=== PATIENT | female | born 1950 | race Caucasian/White ===

== ENCOUNTER 2019-02-26 05:17 | Emergency (ER) | payer OTHER, MEDICARE, SELFPAY ==
[2019-02-26] VITALS (7 sets, daily range): BP systolic 124–163; BP diastolic 56–79; PULSE 78–114; RESP 12–20; TEMP 36.9; O2SAT 93–97
--- NOTE | 2019-02-26 05:27 | DI.RAD.S_ITS ---
PROCEDURE: XR CHEST 1V INDICATIONS: chills, sweats, cough, productive. TECHNIQUE: One view of the chest was acquired. COMPARISON: None. FINDINGS: Surgical changes and devices: None. Lungs and pleura: Atelectasis or parenchymal scarring noted in the right midlung. No pleural effusions or pneumothorax. Mediastinum: Mediastinal contours appear normal. Heart size is normal. Bones and chest wall: No suspicious bony lesions. Overlying soft tissues appear unremarkable. IMPRESSION: No acute cardiopulmonary disease process. Dictated by: Larisa Chawla MD, PhD on 02/26/2019 at 7:43 Approved by: Larisa Chawla MD, PhD on 02/26/2019 at 7:43
--- NOTE | 2019-02-26 05:28 | DI.CT.S_ITS ---
PROCEDURE: CT HEAD/BRAIN WO CON INDICATIONS: chills, productive cough, headache TECHNIQUE: Noncontrast 4.5 mm thick angled axial sections acquired from the foramen magnum to the vertex, with coronal and sagittal reformats. For radiation dose reduction, the following was used: automated exposure control, adjustment of mA and/or kV according to patient size. COMPARISON: None. FINDINGS: Image quality: Excellent. CSF spaces: Basal cisterns are patent. No extra-axial fluid collections. Ventricles are normal in size and shape. Brain: No midline shift. No intracranial masses or hemorrhage. Knapp-white matter interface is normal. Skull and face: Calvarium and visualized facial bones are intact, without suspicious lesions. Sinuses: Visualized sinuses and mastoids are abnormal with small fluid levels in the posterior sphenoid sinus. Right nasal airway stenosis due to mucosal thickening along the nasal turbinates.. IMPRESSION: Mild sinusitis, normal brain. Dictated by: Santana Mccartney M.D. on 02/26/2019 at 7:14 Approved by: Santana Mccartney M.D. on 02/26/2019 at 7:16
--- NOTE | 2019-02-26 05:29 | ED.HA ---
HPI - Headache General Chief Complaint: Headache Stated Complaint: sick x5 days Time Seen by Provider: 02/26/19 05:20 Source: patient and family () Mode of arrival: ambulatory Limitations: no limitations History of Present Illness HPI Narrative: This is a 68-year-old female comes the emergency department with complaint of chills and subjective fevers for 5 days. Patient states she hurts all over from her head to her toes. She states her skin hurts. She states she has headache, she states that the light bothers her, she states she has a sore throat, she states she has chest pain and shortness of breath. She states she has had a cough with productive greenish yellow sputum. She states she has been nauseated but not actively vomiting. She states she has not been having many bowel movements but has been passing gas. She states that she has not had any black or bloody stools. No swelling in her extremities. She has been having symptoms over the last several days but her headache which has been present for several days has increased tonight. She took Tylenol at 4:30 a.m. without improvement. She denies vision changes, difficulty with movement, numbness or weakness. Patient has a history of hypertension, she states pre-diabetes. States that she has had a hysterectomy. Denies tobacco, occasional alcohol, no illicit. She is accompanied by her . Kathrine Sotelo is her PCP. Related Data Home Medications Medication Instructions Recorded Confirmed PHENAZOPYRIDINE HYDROCHLORIDE 200 mg PO #0 01/01/10 (Pyridium) SULFAMETHOX/TRIMETH 1 tab PO #0 01/01/10 (SULFAMETHOX/TRIMETH SS) [UNKNOWN BP MED] #0 05/20/16 aspirin 81 mg PO QDAY #0 05/20/16 metoprolol tartrate 25 mg PO BID #0 05/20/16 Previous Rx's Medication Instructions Recorded oxycodone-acetaminophen [Percocet] 1 tab PO Q4HP PRN #15 tab 05/20/16 Allergies Allergy/AdvReac Type Severity Reaction Status Date / Time No Known Drug Allergies Allergy Verified 02/26/19 06:02 Review of Systems Review of Systems ROS Unobtainable: All systems reviewed & are unremarkable except as noted in HPI and below Constitutional Reports chills, Reports excessive sweating, Reports fever(s), Reports headache(s), Denies lethargy and Denies weakness Eyes Denies change in vision ENT Ears, Nose, Mouth, and Throat: Reports headache(s), Reports nasal discharge and Reports sore throat Cardiovascular Reports chest pain, Reports diaphoresis, Denies syncope, Denies edema, Denies leg edema, Denies lightheadedness, Denies radiating jaw, neck or arm pain and Reports dyspnea Respiratory Reports change in phlegm color (green/yellow), Reports chest congestion, Reports cough, Reports excessive phlegm production, Reports dyspnea and Denies wheezing Gastrointestinal Gastrointestinal: Denies abdominal pain, Denies melena, Denies hematochezia, Denies change in bowel habits, Denies diarrhea, Reports nausea and Denies vomiting Genitourinary Denies hematuria, Denies urinary frequency, Denies dysuria, Denies flank pain, Denies urinary incontinence and Denies urinary urgency Musculoskeletal Denies back pain, Reports arthralgias, Denies numbness, Denies tingling and Reports other (hurts all over.) Integumentary/Breasts Denies non-healing lesions, Denies rash and Denies unusual bruising Neurologic Denies confusion, Denies syncope, Reports headache(s), Denies focal weakness, Denies numbness, Denies tingling and Denies weakness Psychiatric Denies confusion Endocrine Reports excessive sweating Allergic/Immunologic Denies wheezing PFSH Medical History Hypertension (Chronic) Pre-diabetes (Chronic) Social History (Updated 02/26/19 @ 05:33 by Merary Hodge DO) marital status: Smoking Status: Never smoker alcohol intake: current substance use type: does not use Social History (Updated 02/26/19 @ 05:33 by Merary Hodge DO) marital status: Smoking Status: Never smoker alcohol intake: current substance use type: does not use Exam Narrative Exam Narrative: GEN: well nourished, female, alert and oriented x 3, patient appears to be in moderate distress. Patient is diaphoretic. HEENT: Atraumatic, pupils are equal round reactive to light, extraocular movements are intact, no nystagmus, nares are clear, TMs are clear with no fluid, there is no conjunctival pallor. Throat is erythematous without any exudates, erythema, tonsillar enlargement or uvular deviation, no cervical lymphadenopathy. Negative Kernig's and Brudzinski. Able to flex/extend and rotate without issue. HEART: Regular rate and rhythm without murmur, clicks, rubs. Pulses are equal in upper and lower extremities LUNGS:Lungs clear to auscultation, no wheezes, rales, crackles, chest moves symmetrically, No tachypnea, no accessory muscle use. ABD:bowel sounds normal, soft, non-tender, , non-distended, no guarding, rebound, rigidity, no masses noted, no hepatosplenomegaly :No CVA tenderness MSCL: Non-tender, no muscle atrophy, muscles strength 5/5 upper and lower extremities, full range of motion NEURO:CN 2-12 intact, sensation normal, reflexes 2/4 upper and lower extremities. SKIN: no rash, no petechia, no lesions or erythema noted. Initial Vital Signs Initial Vital Signs: Vital Signs Temperature 98.4 F 02/26/19 05:25 Pulse Rate 114 H 02/26/19 05:25 Respiratory Rate 20 02/26/19 05:25 Blood Pressure 163/79 H 02/26/19 05:25 Pulse Oximetry 97 02/26/19 05:25 Course Orders Ordered: ED Orders 02/26/19 05:25 Complete Blood Count AUTO DIFF Stat Comprehensive Metabolic Panel Stat Lactate (Lactic Acid) Urgent Partial Thromboplastin Time Stat Procalcitonin Stat Prothrombin Time INR Stat Troponin & CK Cardiac Panel Stat 02/26/19 05:27 XR chest 1V Stat 02/26/19 05:28 CT head/brain wo con Stat 02/26/19 05:30 Influenza A and B by PCR Rapid Stat 02/26/19 05:34 EKG-12 Lead Stat 02/26/19 06:00 Urinalysis and Microscopic Stat 02/26/19 06:17 Blood Culture Stat 02/26/19 08:10 Cell Count w Diff CSF Stat Glucose CSF Stat HOLD TUBE CSF Stat Meningitis Panel (Film Array) Stat Total Protein CSF Stat 02/26/19 08:20 CSF culture Stat Discontinued Medications Sodium Chloride (Normal Saline 0.9%) 1,000 mls @ 1,000 mls/hr IV BOLUS ONE Stop: 02/26/19 06:26 Last Admin: 02/26/19 05:57 Dose: Not Given Sodium Chloride (Normal Saline 0.9%) 2,313.33 mls @ 771.11 mls/hr 30 ml/kg infuse over 3 hr (2313.33 ml) IV NOW ONE Stop: 02/26/19 08:33 Last Infusion: 02/26/19 07:34 Dose: 0 mls/hr Admin: 02/26/19 05:54 Dose: 771.11 mls/hr Morphine Sulfate (Morphine) 4 mg IV NOW ONE Stop: 02/26/19 05:28 Last Admin: 02/26/19 05:42 Dose: 4 mg Morphine Sulfate (Morphine) 4 mg IV NOW ONE Stop: 02/26/19 07:19 Last Admin: 02/26/19 07:30 Dose: 4 mg Ondansetron HCl (Zofran) 4 mg IV NOW ONE Stop: 02/26/19 05:29 Last Admin: 02/26/19 05:43 Dose: 4 mg Ondansetron HCl (Zofran) 4 mg IV NOW ONE Stop: 02/26/19 07:29 Last Admin: 02/26/19 07:30 Dose: 4 mg Vital Signs - 8 hr 02/26/19 05:25 02/26/19 06:09 02/26/19 06:31 Temperature 98.4 F Pulse Rate 114 H 81 78 Respiratory Rate 20 14 14 Blood Pressure 163/79 H Blood Pressure [Left Arm] 139/67 127/56 L Pulse Oximetry 97 93 94 02/26/19 07:01 02/26/19 08:33 Temperature Pulse Rate 94 H 81 Respiratory Rate 18 12 Blood Pressure Blood Pressure [Left Arm] 137/67 135/63 Pulse Oximetry 94 93 MDM - Headache Lab Data Attestation: I reviewed the patient's lab results. Result diagrams: 02/26/19 05:25 02/26/19 05:25 Lab Results 02/26/19 02/26/19 02/26/19 Range/Units 05:25 05:25 05:25 WBC 7.2 (4.5-11.0) X10^3/uL RBC 4.48 (4.0-5.2) X10^6/uL Hgb 14.4 (12.0-16.0) g/dL Hct 41.8 (36-46) % MCV 93.2 (80-100) fL MCH 32.0 (26-34) PG MCHC 34.4 (30-36) % RDW 13.7 (11.6-14.8) % Plt Count 199 (150-400) X10^3/uL Neut % (Auto) 73.3 (50-75) % Lymph % (Auto) 15.3 L (25-40) % Garden % (Auto) 10.8 (3-14) % Eos % (Auto) 0.3 L (2-4) % Baso % (Auto) 0.3 (0-2) % Neut # (Auto) 5300 (1578-7507) /uL Lymph # (Auto) 1100 (0534-7312) /uL Garden # (Auto) 800 (0-900) /uL Eos # (Auto) 0 (0-450) /uL Baso # (Auto) 0 (0-100) /uL PT 12.8 H (10.1-12.7) SECONDS INR 1.1 (0.9-1.3) APTT 35 (26.4-36.2) SECONDS Sodium (137-145) mmol/L Potassium (3.4-5.1) mmol/L Chloride (98-107) mmol/L Carbon Dioxide (22-32) mmol/L BUN (7-17) mg/dL Creatinine (0.52-1.04) mg/dL Estimated GFR (>60) mL/min BUN/Creatinine Ratio (6-22) Glucose (80-110) mg/dL Lactate (0.7-2.1) mmol/L Calcium (8.4-10.2) mg/dL Total Bilirubin (0.2-1.3) mg/dL AST (14-36) IU/L ALT (9-52) IU/L Alkaline Phosphatase (38-126) U/L Total Creatine Kinase (30-135) U/L CK-MB (CK-2) CK-MB (CK-2) Rel Index Troponin I (0.01-0.034) ng/mL Total Protein (6.3-8.2) g/dL Albumin (3.5-5.0) g/dL Globulin (1.7-4.1) g/dL Albumin/Globulin Ratio (1.0-2.8) Procalcitonin 0.09 (<0.5) ng/mL Influenza A & B (PCR) (Negative) 06/27/19 06/27/19 06/27/19 Range/Units 05:25 05:25 05:25 WBC (4.5-11.0) X10^3/uL RBC (4.0-5.2) X10^6/uL Hgb (12.0-16.0) g/dL Hct (36-46) % MCV (80-100) fL MCH (26-34) PG MCHC (30-36) % RDW (11.6-14.8) % Plt Count (150-400) X10^3/uL Neut % (Auto) (50-75) % Lymph % (Auto) (25-40) % Garden % (Auto) (3-14) % Eos % (Auto) (2-4) % Baso % (Auto) (0-2) % Neut # (Auto) (8403-4236) /uL Lymph # (Auto) (3444-1884) /uL Garden # (Auto) (0-900) /uL Eos # (Auto) (0-450) /uL Baso # (Auto) (0-100) /uL PT (10.1-12.7) SECONDS INR (0.9-1.3) APTT (26.4-36.2) SECONDS Sodium 136 L (137-145) mmol/L Potassium 3.8 (3.4-5.1) mmol/L Chloride 98 (98-107) mmol/L Carbon Dioxide 23 (22-32) mmol/L BUN 11 (7-17) mg/dL Creatinine 0.60 (0.52-1.04) mg/dL Estimated GFR > 60.0 (>60) mL/min BUN/Creatinine Ratio 18.3 (6-22) Glucose 143 H (80-110) mg/dL Lactate 2.0 (0.7-2.1) mmol/L Calcium 9.6 (8.4-10.2) mg/dL Total Bilirubin 0.5 (0.2-1.3) mg/dL AST 23 (14-36) IU/L ALT 44 (9-52) IU/L Alkaline Phosphatase 122 (38-126) U/L Total Creatine Kinase 37 (30-135) U/L CK-MB (CK-2) TNP CK-MB (CK-2) Rel Index TNP Troponin I < 0.012 (0.01-0.034) ng/mL Total Protein 7.2 (6.3-8.2) g/dL Albumin 4.3 (3.5-5.0) g/dL Globulin 2.9 (1.7-4.1) g/dL Albumin/Globulin Ratio 1.5 (1.0-2.8) Procalcitonin (<0.5) ng/mL Influenza A & B (PCR) (Negative) 02/26/19 Range/Units 05:30 WBC (4.5-11.0) X10^3/uL RBC (4.0-5.2) X10^6/uL Hgb (12.0-16.0) g/dL Hct (36-46) % MCV (80-100) fL MCH (26-34) PG MCHC (30-36) % RDW (11.6-14.8) % Plt Count (150-400) X10^3/uL Neut % (Auto) (50-75) % Lymph % (Auto) (25-40) % Garden % (Auto) (3-14) % Eos % (Auto) (2-4) % Baso % (Auto) (0-2) % Neut # (Auto) (7656-1520) /uL Lymph # (Auto) (3703-0587) /uL Garden # (Auto) (0-900) /uL Eos # (Auto) (0-450) /uL Baso # (Auto) (0-100) /uL PT (10.1-12.7) SECONDS INR (0.9-1.3) APTT (26.4-36.2) SECONDS Sodium (137-145) mmol/L Potassium (3.4-5.1) mmol/L Chloride (98-107) mmol/L Carbon Dioxide (22-32) mmol/L BUN (7-17) mg/dL Creatinine (0.52-1.04) mg/dL Estimated GFR (>60) mL/min BUN/Creatinine Ratio (6-22) Glucose (80-110) mg/dL Lactate (0.7-2.1) mmol/L Calcium (8.4-10.2) mg/dL Total Bilirubin (0.2-1.3) mg/dL AST (14-36) IU/L ALT (9-52) IU/L Alkaline Phosphatase (38-126) U/L Total Creatine Kinase (30-135) U/L CK-MB (CK-2) CK-MB (CK-2) Rel Index Troponin I (0.01-0.034) ng/mL Total Protein (6.3-8.2) g/dL Albumin (3.5-5.0) g/dL Globulin (1.7-4.1) g/dL Albumin/Globulin Ratio (1.0-2.8) Procalcitonin (<0.5) ng/mL Influenza A & B (PCR) Negative (Negative) Imaging Data CT scan - head: Radiologist's impression: Generalized involutional changes and chronic mics grow vascular changes noted. No acute intracranial abnormality. Possible sinusitis. No mass, mass effect, hemorrhage or evidence of major vessel infarct is identified. Posterior fossa contents are unremarkable. Atherosclerotic calcification of also base of brain noted. Normal mobility of skull base or calvarium detected. Orbital soft tissues are unremarkable. Fluid is present within the right maxillary and sphenoid sinuses mastoid air cells are clear. Chest x-ray: Radiologist's impression: [place] [address] XRay Report Signed Patient: Gwen Vasques [facility]#: [id number] : 3Acct:[id number] Age/Sex: 68 / FDate of Service: 02/26/19 Loc: ED Accession Number: [id number] Procedure: XR chest 1V Ordering Provider: Merary Hodge D.O. PROCEDURE: XR CHEST 1V INDICATIONS: chills, sweats, cough, productive. TECHNIQUE: One view of the chest was acquired. COMPARISON: None. FINDINGS: Surgical changes and devices: None. Lungs and pleura: Atelectasis or parenchymal scarring noted in the right midlung. No pleural effusions or pneumothorax. Mediastinum: Mediastinal contours appear normal. Heart size is normal. Bones and chest wall: No suspicious bony lesions. Overlying soft tissues appear unremarkable. IMPRESSION: No acute cardiopulmonary disease process. Dictated by: Larisa Chawla MD, PhD on 02/26/2019 at 7:43 Approved by: Larisa Chawla MD, PhD on 02/26/2019 at 7:43 ECG Data Attestation: I personally reviewed and interpreted this ECG as follows: Prior ECG tracings: not available for review Interpretation: Sinus rhythm with a rate 88 NC 153 QRS of 94 and QTC of 328. Nonspecific abnormalities, no ST elevation or depression. No prior's available. MDM Narrative Medical decision making narrative: Patient comes in with hypertension, tachycardia diaphoretic complaining of a headache that has worsened over the past 5 days. She also complains of hurting all over and everywhere I asked she states is painful. Patient and her state that he was sick with similar symptoms although he did not feel quite as bad or have a headache severe. Patient is more comfortable after medication. She defers any additional medication. Discussed lab work, procalcitonin, UA and flu swab were still pending. Patient and I discussed she has had a history of migraines although she states this is worse. She states that this was a slow onset that worsened today. Discussed with patient if procalcitonin is positive she definitely needs a lumbar puncture, if negative we will discuss but may still be appropriate. Patient head CT does not show acute findings or sign of bleed. Chest x-ray shows a little bit of streaky fluid but no clear pneumonia. All lab work is normal except for UA which has not been provided by the patient and they influenza and procalcitonin which are negative. Discussed with patient suspect viral meningitis vs. SAH although history makes this less likely. Patient consents to LP. Successful and sent to lab. Patient signed out to Dr. Olivares for final dispostion. Discharge Plan Departure Clinical Impression: Headache Prescriptions: No Action PHENAZOPYRIDINE HYDROCHLORIDE (Pyridium) 200 mg PO Qty: 0 RF: 0 SULFAMETHOX/TRIMETH (SULFAMETHOX/TRIMETH SS) 1 tab PO Qty: 0 RF: 0 aspirin 81 MG tablet,delayed release (DR/EC) 81 mg PO QDAY Qty: 0 RF: 0 metoprolol tartrate 25 MG tablet 25 mg PO BID Qty: 0 RF: 0 [UNKNOWN BP MED] Qty: 0 RF: 0 oxycodone-acetaminophen [Percocet] 5 MG/325 MG tablet 1 tab PO Q4HP PRNQty: 15 RF: 0
--- NOTE | 2019-02-26 05:34 | ED_ITS ---
HPI - Headache General Chief Complaint: Headache Stated Complaint: sick x5 days Time Seen by Provider: 02/26/19 05:20 Source: patient and family () Mode of arrival: ambulatory Limitations: no limitations History of Present Illness HPI Narrative: This is a 68-year-old female comes the emergency department with complaint of chills and subjective fevers for 5 days. Patient states she hurts all over from her head to her toes. She states her skin hurts. She states she has headache, she states that the light bothers her, she states she has a sore throat, she states she has chest pain and shortness of breath. She states she has had a cough with productive greenish yellow sputum. She states she has been nauseated but not actively vomiting. She states she has not been having many bowel movements but has been passing gas. She states that she has not had any black or bloody stools. No swelling in her extremities. She has been having symptoms over the last several days but her headache which has been present for several days has increased tonight. She took Tylenol at 4:30 a.m. without improvement. She denies vision changes, difficulty with movement, numbness or weakness. Patient has a history of hypertension, she states pre-diabetes. States that she has had a hysterectomy. Denies tobacco, occasional alcohol, no illicit. She is accompanied by her . Kathrine Sotelo is her PCP. Related Data Home Medications Medication Instructions Recorded Confirmed PHENAZOPYRIDINE HYDROCHLORIDE 200 mg PO #0 01/01/10 (Pyridium) SULFAMETHOX/TRIMETH 1 tab PO #0 01/01/10 (SULFAMETHOX/TRIMETH SS) [UNKNOWN BP MED] #0 05/20/16 aspirin 81 mg PO QDAY #0 05/20/16 metoprolol tartrate 25 mg PO BID #0 05/20/16 Previous Rx's Medication Instructions Recorded oxycodone-acetaminophen [Percocet] 1 tab PO Q4HP PRN #15 tab 05/20/16 Allergies Allergy/AdvReac Type Severity Reaction Status Date / Time No Known Drug Allergies Allergy Verified 02/26/19 06:02 Review of Systems Review of Systems ROS Unobtainable: All systems reviewed & are unremarkable except as noted in HPI and below Constitutional Reports chills, Reports excessive sweating, Reports fever(s), Reports headache(s), Denies lethargy and Denies weakness Eyes Denies change in vision ENT Ears, Nose, Mouth, and Throat: Reports headache(s), Reports nasal discharge and Reports sore throat Cardiovascular Reports chest pain, Reports diaphoresis, Denies syncope, Denies edema, Denies leg edema, Denies lightheadedness, Denies radiating jaw, neck or arm pain and R eports dyspnea Respiratory Reports change in phlegm color (green/yellow), Reports chest congestion, Reports cough, Reports excessive phlegm production, Reports dyspnea and Denies wheezing Gastrointestinal Gastrointestinal: Denies abdominal pain, Denies melena, Denies hematochezia, Denies change in bowel habits, Denies diarrhea, Reports nausea and Denies vomiting Genitourinary Denies hematuria, Denies urinary frequency, Denies dysuria, Denies flank pain, Denies urinary incontinence and Denies urinary urgency Musculoskeletal Denies back pain, Reports arthralgias, Denies numbness, Denies tingling and Reports other (hurts all over.) Integumentary/Breasts Denies non-healing lesions, Denies rash and Denies unusual bruising Neurologic Denies confusion, Denies syncope, Reports headache(s), Denies focal weakness, Denies numbness, Denies tingling and Denies weakness Psychiatric Denies confusion Endocrine Reports excessive sweating Allergic/Immunologic Denies wheezing PFSH Medical History Hypertension (Chronic) Pre-diabetes (Chronic) Social History (Updated 02/26/19 @ 05:33 by Merary Hodge DO) marital status: Smoking Status: Never smoker alcohol intake: current substance use type: does not use Social History (Updated 02/26/19 @ 05:33 by Merary Hodge DO) marital status: Smoking Status: Never smoker alcohol intake: current substance use type: does not use Exam Narrative Exam Narrative: GEN: well nourished, female, alert and oriented x 3, patient appears to be in moderate distress. Patient is diaphoretic. HEENT: Atraumatic, pupils are equal round reactive to light, extraocular movements are intact, no nystagmus, nares are clear, TMs are clear with no fluid, there is no conjunctival pallor. Throat is erythematous without any exudates, erythema, tonsillar enlargement or uvular deviation, no cervical lymphadenopathy. Negative Kernig's and Brudzinski. Able to flex/extend and rotate without issue. HEART: Regular rate and rhythm without murmur, clicks, rubs. Pulses are equal in upper and lower extremities LUNGS:Lungs clear to auscultation, no wheezes, rales, crackles, chest moves symmetrically, No tachypnea, no accessory muscle use. ABD:bowel sounds normal, soft, non-tender, , non-distended, no guarding, rebound, rigidity, no masses noted, no hepatosplenomegaly :No CVA tenderness MSCL: Non-tender, no muscle atrophy, muscles strength 5/5 upper and lower extremities, full range of motion NEURO:CN 2-12 intact, sensation normal, reflexes 2/4 upper and lower extremities. SKIN: no rash, no petechia, no lesions or erythema noted. Initial Vital Signs Initial Vital Signs: Vital Signs Temperature 98.4 F 02/26/19 05:25 Pulse Rate 114 H 02/26/19 05:25 Respiratory Rate 20 02/26/19 05:25 Blood Pressure 163/79 H 02/26/19 05:25 Pulse Oximetry 97 02/26/19 05:25 Course Orders Ordered: ED Orders 02/26/19 05:25 Complete Blood Count AUTO DIFF Stat Comprehensive Metabolic Panel Stat Lactate (Lactic Acid) Urgent Partial Thromboplastin Time Stat Procalcitonin Stat Prothrombin Time INR Stat Troponin & CK Cardiac Panel Stat 02/26/19 05:27 XR chest 1V Stat 02/26/19 05:28 CT head/brain wo con Stat 02/26/19 05:30 Influenza A and B by PCR Rapid Stat 02/26/19 05:34 EKG-12 Lead Stat 02/26/19 06:00 Urinalysis and Microscopic Stat 02/26/19 06:17 Blood Culture Stat 02/26/19 08:10 Cell Count w Diff CSF Stat Glucose CSF Stat HOLD TUBE CSF Stat Meningitis Panel (Film Array) Stat Total Protein CSF Stat 02/26/19 08:20 CSF culture Stat Discontinued Medications Sodium Chloride (Normal Saline 0.9%) 1,000 mls @ 1,000 mls/hr IV BOLUS ONE Stop: 02/26/19 06:26 Last Admin: 02/26/19 05:57 Dose: Not Given Sodium Chloride (Normal Saline 0.9%) 2,313.33 mls @ 771.11 mls/hr 30 ml/kg infuse over 3 hr (2313.33 ml) IV NOW ONE Stop: 02/26/19 08:33 Last Infusion: 02/26/19 07:34 Dose: 0 mls/hr Admin: 02/26/19 05:54 Dose: 771.11 mls/hr Morphine Sulfate (Morphine) 4 mg IV NOW ONE Stop: 02/26/19 05:28 Last Admin: 02/26/19 05:42 Dose: 4 mg Morphine Sulfate (Morphine) 4 mg IV NOW ONE Stop: 02/26/19 07:19 Last Admin: 02/26/19 07:30 Dose: 4 mg Ondansetron HCl (Zofran) 4 mg IV NOW ONE Stop: 02/26/19 05:29 Last Admin: 02/26/19 05:43 Dose: 4 mg Ondansetron HCl (Zofran) 4 mg IV NOW ONE Stop: 02/26/19 07:29 Last Admin: 02/26/19 07:30 Dose: 4 mg Vital Signs - 8 hr 02/26/19 05:25 02/26/19 06:09 02/26/19 06:31 Temperature 98.4 F Pulse Rate 114 H 81 78 Respiratory Rate 20 14 14 Blood Pressure 163/79 H Blood Pressure [Left Arm] 139/67 127/56 L Pulse Oximetry 97 93 94 02/26/19 07:01 02/26/19 08:33 Temperature Pulse Rate 94 H 81 Respiratory Rate 18 12 Blood Pressure Blood Pressure [Left Arm] 137/67 135/63 Pulse Oximetry 94 93 MDM - Headache Lab Data Attestation: I reviewed the patient's lab results. Result diagrams: 02/26/19 05:25 02/26/19 05:25 Lab Results 02/26/19 02/26/19 02/26/19 Range/Units 05:25 05:25 05:25 WBC 7.2 (4.5-11.0) X10^3/uL RBC 4.48 (4.0-5.2) X10^6/uL Hgb 14.4 (12.0-16.0) g/dL Hct 41.8 (36-46) % MCV 93.2 (80-100) fL MCH 32.0 (26-34) PG MCHC 34.4 (30-36) % RDW 13.7 (11.6-14.8) % Plt Count 199 (150-400) X10^3/uL Neut % (Auto) 73.3 (50-75) % Lymph % (Auto) 15.3 L (25-40) % [place] % (Auto) 10.8 (3-14) % Eos % (Auto) 0.3 L (2-4) % Baso % (Auto) 0.3 (0-2) % Neut # (Auto) 5300 (4069-5029) /uL Lymph # (Auto) 1100 (6587-8094) /uL [place] # (Auto) 800 (0-900) /uL Eos # (Auto) 0 (0-450) /uL Baso # (Auto) 0 (0-100) /uL PT 12.8 H (10.1-12.7) SECONDS INR 1.1 (0.9-1.3) APTT 35 (26.4-36.2) SECONDS Sodium (137-145) mmol/L Potassium (3.4-5.1) mmol/L Chloride (98-107) mmol/L Carbon Dioxide (22-32) mmol/L BUN (7-17) mg/dL Creatinine (0.52-1.04) mg/dL Estimated GFR (>60) mL/min BUN/Creatinine Ratio (6-22) Glucose (80-110) mg/dL Lactate (0.7-2.1) mmol/L Calcium (8.4-10.2) mg/dL Total Bilirubin (0.2-1.3) mg/dL AST (14-36) IU/L ALT (9-52) IU/L Alkaline Phosphatase (38-126) U/L Total Creatine Kinase (30-135) U/L CK-MB (CK-2) CK-MB (CK-2) Rel Index Troponin I (0.01-0.034) ng/mL Total Protein (6.3-8.2) g/dL Albumin (3.5-5.0) g/dL Globulin (1.7-4.1) g/dL Albumin/Globulin Ratio (1.0-2.8) Procalcitonin 0.09 (<0.5) ng/mL Influenza A & B (PCR) (Negative) 02/26/19 02/26/19 02/26/19 Range/Units 05:25 05:25 05:25 WBC (4.5-11.0) X10^3/uL RBC (4.0-5.2) X10^6/uL Hgb (12.0-16.0) g/dL Hct (36-46) % MCV (80-100) fL MCH (26-34) PG MCHC (30-36) % RDW (11.6-14.8) % Plt Count (150-400) X10^3/uL Neut % (Auto) (50-75) % Lymph % (Auto) (25-40) % [place] % (Auto) (3-14) % Eos % (Auto) (2-4) % Baso % (Auto) (0-2) % Neut # (Auto) (1037-0664) /uL Lymph # (Auto) (7336-5791) /uL [place] # (Auto) (0-900) /uL Eos # (Auto) (0-450) /uL Baso # (Auto) (0-100) /uL PT (10.1-12.7) SECONDS INR (0.9-1.3) APTT (26.4-36.2) SECONDS Sodium 136 L (137-145) mmol/L Potassium 3.8 (3.4-5.1) mmol/L Chloride 98 (98-107) mmol/L Carbon Dioxide 23 (22-32) mmol/L BUN 11 (7-17) mg/dL Creatinine 0.60 (0.52-1.04) mg/dL Estimated GFR > 60.0 (>60) mL/min BUN/Creatinine Ratio 18.3 (6-22) Glucose 143 H (80-110) mg/dL Lactate 2.0 (0.7-2.1) mmol/L Calcium 9.6 (8.4-10.2) mg/dL Total Bilirubin 0.5 (0.2-1.3) mg/dL AST 23 (14-36) IU/L ALT 44 (9-52) IU/L Alkaline Phosphatase 122 (38-126) U/L Total Creatine Kinase 37 (30-135) U/L CK-MB (CK-2) TNP CK-MB (CK-2) Rel Index TNP Troponin I < 0.012 (0.01-0.034) ng/mL Total Protein 7.2 (6.3-8.2) g/dL Albumin 4.3 (3.5-5.0) g/dL Globulin 2.9 (1.7-4.1) g/dL Albumin/Globulin Ratio 1.5 (1.0-2.8) Procalcitonin (<0.5) ng/mL Influenza A & B (PCR) (Negative) 02/26/19 Range/Units 05:30 WBC (4.5-11.0) X10^3/uL RBC (4.0-5.2) X10^6/uL Hgb (12.0-16.0) g/dL Hct (36-46) % MCV (80-100) fL MCH (26-34) PG MCHC (30-36) % RDW (11.6-14.8) % Plt Count (150-400) X10^3/uL Neut % (Auto) (50-75) % Lymph % (Auto) (25-40) % [place] % (Auto) (3-14) % Eos % (Auto) (2-4) % Baso % (Auto) (0-2) % Neut # (Auto) (6158-1215) /uL Lymph # (Auto) (7888-4774) /uL [place] # (Auto) (0-900) /uL Eos # (Auto) (0-450) /uL Baso # (Auto) (0-100) /uL PT (10.1-12.7) SECONDS INR (0.9-1.3) APTT (26.4-36.2) SECONDS Sodium (137-145) mmol/L Potassium (3.4-5.1) mmol/L Chloride (98-107) mmol/L Carbon Dioxide (22-32) mmol/L BUN (7-17) mg/dL Creatinine (0.52-1.04) mg/dL Estimated GFR (>60) mL/min BUN/Creatinine Ratio (6-22) Glucose (80-110) mg/dL Lactate (0.7-2.1) mmol/L Calcium (8.4-10.2) mg/dL Total Bilirubin (0.2-1.3) mg/dL AST (14-36) IU/L ALT (9-52) IU/L Alkaline Phosphatase (38-126) U/L Total Creatine Kinase (30-135) U/L CK-MB (CK-2) CK-MB (CK-2) Rel Index Troponin I (0.01-0.034) ng/mL Total Protein (6.3-8.2) g/dL Albumin (3.5-5.0) g/dL Globulin (1.7-4.1) g/dL Albumin/Globulin Ratio (1.0-2.8) Procalcitonin (<0.5) ng/mL Influenza A & B (PCR) Negative (Negative) Imaging Data CT scan - head: Radiologist's impression: Generalized involutional changes and chronic mics grow vascular changes noted. No acute intracranial abnormality. Possible sinusitis. No mass, mass effect, hemorrhage or evidence of major vessel infarct is identified. Posterior fossa contents are unremarkable. Atherosclerotic calcification of also base of brain noted. Normal mobility of skull base or calvarium detected. Orbital soft tissues are unremarkable. Fluid is present within the right maxillary and sphenoid sinuses mastoid air cells are clear. Chest x-ray: Radiologist's impression: [place] [address] XRay Report Signed Patient: Gwen Vasques [facility]#: [id number] : 3Acct:[id number] Age/Sex: 68 / FDate of Service: 02/26/19 Loc: ED Accession Number: [id number] Procedure: XR chest 1V Ordering Provider: Merary Hodge D.O. PROCEDURE: XR CHEST 1V INDICATIONS: chills, sweats, cough, productive. TECHNIQUE: One view of the chest was acquired. COMPARISON: None. FINDINGS: Surgical changes and devices: None. Lungs and pleura: Atelectasis or parenchymal scarring noted in the right midlung. No pleural effusions or pneumothorax. Mediastinum: Mediastinal contours appear normal. Heart size is normal. Bones and chest wall: No suspicious bony lesions. Overlying soft tissues appear unremarkable. IMPRESSION: No acute cardiopulmonary disease process. Dictated by: Larisa Chawla MD, PhD on 02/26/2019 at 7:43 Approved by: Larisa Chawla MD, PhD on 02/26/2019 at 7:43 ECG Data Attestation: I personally reviewed and interpreted this ECG as follows: Prior ECG tracings: not available for review Interpretation: Sinus rhythm with a rate 88 AR 153 QRS of 94 and QTC of 328. Nonspecific abnormalities, no ST elevation or depression. No prior's available. MDM Narrative Medical decision making narrative: Patient comes in with hypertension, tachycardia diaphoretic complaining of a headache that has worsened over the past 5 days. She also complains of hurting all over and everywhere I asked she states is painful. Patient and her state that he was sick with similar symptoms although he did not feel quite as bad or have a headache severe. Patient is more comfortable after medication. She defers any additional medication. Discussed lab work, procalcitonin, UA and flu swab were still pending. Patient and I discussed she has had a history of migraines although she states this is worse. She states that this was a slow onset that worsened today. Discussed with patient if procalcitonin is positive she definitely needs a lumbar puncture, if negative we will discuss but may still be appropriate. Patient head CT does not show acute findings or sign of bleed. Chest x-ray orlin ws a little bit of streaky fluid but no clear pneumonia. All lab work is normal except for UA which has not been provided by the patient and they influenza and procalcitonin which are negative. Discussed with patient suspect viral meningitis vs. SAH although history makes this less likely. Patient consents to LP. Successful and sent to lab. Patient signed out to Dr. Olivares for final dispostion. Discharge Plan Departure Clinical Impression: Headache Prescriptions: No Action PHENAZOPYRIDINE HYDROCHLORIDE (Pyridium) 200 mg PO Qty: 0 RF: 0 SULFAMETHOX/TRIMETH (SULFAMETHOX/TRIMETH SS) 1 tab PO Qty: 0 RF: 0 aspirin 81 MG tablet,delayed release (DR/EC) 81 mg PO QDAY Qty: 0 RF: 0 metoprolol tartrate 25 MG tablet 25 mg PO BID Qty: 0 RF: 0 [UNKNOWN BP MED] Qty: 0 RF: 0 oxycodone-acetaminophen [Percocet] 5 MG/325 MG tablet 1 tab PO Q4HP PRNQty: 15 RF: 0
[2019-02-26] MEDS: MORPHINE 4 MG/ML INJ IV ×3 (05:42→10:31)
[2019-02-26] MEDS: ONDANSETRON 4 MG/2 ML INJ IV ×2 (05:43→07:30)
[2019-02-26 05:48] LABS: Add Manual Diff / Slide Review NO; Basophils Absolute Auto 0 /uL (0-100); Basophils Percent Auto 0.3 % (0-2); Eosinophils Absolute Auto 0 /uL (0-450); Eosinophils Percent Auto 0.3 % (2-4); Hematocrit 41.8 % (36-46); Hemoglobin 14.4 g/dL (12.0-16.0); Lymphocytes Absolute Auto 1100 /uL (1100-4500); Lymphocytes Percent Auto 15.3 % (25-40); Mean Corpuscular HGB Conc 34.4 % (30-36); Mean Corpuscular Volume 93.2 fL (80-100); Monocytes Absolute Auto 800 /uL (0-900); Monocytes Percent Auto 10.8 % (3-14); Neutrophils Absolute Auto 5300 /uL (1500-7000); Neutrophils Percent Auto 73.3 % (50-75); Platelet Count 199 X10^3/uL (150-400); Red Blood Cell Count 4.48 X10^6/uL (4.0-5.2); Red Cell Distribution Width 13.7 % (11.6-14.8); White Blood Cell Count 7.2 X10^3/uL (4.5-11.0)
[2019-02-26 05:49] LABS: INR 1.1 (0.9-1.3); Prothrombin Time 12.8 SECONDS (10.1-12.7)
[2019-02-26 05:52] LABS: PTT Partial Thromboplastin Tim 35 SECONDS (26.4-36.2)
[2019-02-26 05:53] LABS: Creatine Kinase 37 U/L (30-135)
[2019-02-26] MEDS: SODIUM CHLORIDE 0.9% 2,313.33 ML 771.11 ML IV (05:54)
[2019-02-26 06:05] LABS: Troponin I < 0.012 ng/mL (0.01-0.034)
--- NOTE | 2019-02-26 06:09 | PC.NURSE ---
Pt reports FORBES, sore throat, chills, aching from head to toenails and thinks she has had a fever for past 5 days. States productive cough, with yellowish green sputum and nausea. FORBES is worsening since she awoke this morning, Tylenol at 4:30 a.m. without improvement. Patient has a history of hypertension and pre diabetes. PT is Diaphoretic, Lung sounds clear to auscultation bilaterally.
[2019-02-26 06:25] LABS: Alanine Aminotransferase 44 IU/L (9-52); Albumin 4.3 g/dL (3.5-5.0); Albumin Globulin Ratio 1.5 (1.0-2.8); Alkaline Phosphatase 122 U/L (38-126); Aspartate Aminotransferase 23 IU/L (14-36); BUN Creatinine Ratio 18.3 (6-22); Bilirubin Total 0.5 mg/dL (0.2-1.3); Blood Urea Nitrogen 11 mg/dL (7-17); Calcium 9.6 mg/dL (8.4-10.2); Carbon Dioxide 23 mmol/L (22-32); Chloride 98 mmol/L (98-107); Estimated Glomerular Filt Rate > 60.0 mL/min (>60); Globulin 2.9 g/dL (1.7-4.1); Glucose 143 mg/dL (80-110); HEMOLYSIS 27 (0-50); Potassium 3.8 mmol/L (3.4-5.1); Sodium 136 mmol/L (137-145); Total Protein 7.2 g/dL (6.3-8.2)
[2019-02-26 06:47] LABS: Influenza A and B by PCR Rapid Negative (Negative)
[2019-02-26 07:05] LABS: Procalcitonin 0.09 ng/mL (<0.5)
--- NOTE | 2019-02-26 08:44 | ED.HA ---
HPI - Headache General Chief Complaint: Headache Stated Complaint: sick x5 days Time Seen by Provider: 02/26/19 05:20 Mode of arrival: ambulatory Limitations: no limitations Related Data Home Medications Medication Instructions Recorded Confirmed PHENAZOPYRIDINE HYDROCHLORIDE 200 mg PO #0 01/01/10 (Pyridium) SULFAMETHOX/TRIMETH 1 tab PO #0 01/01/10 (SULFAMETHOX/TRIMETH SS) [UNKNOWN BP MED] #0 05/20/16 aspirin 81 mg PO QDAY #0 05/20/16 metoprolol tartrate 25 mg PO BID #0 05/20/16 Previous Rx's Medication Instructions Recorded oxycodone-acetaminophen [Percocet] 1 tab PO Q4HP PRN #15 tab 05/20/16 Allergies Allergy/AdvReac Type Severity Reaction Status Date / Time No Known Drug Allergies Allergy Verified 02/26/19 06:02 Review of Systems Constitutional Reports headache(s) and Denies weakness ENT Ears, Nose, Mouth, and Throat: Reports headache(s) Cardiovascular Denies syncope Musculoskeletal Denies numbness and Denies tingling Neurologic Denies confusion, Denies syncope, Reports headache(s), Denies focal weakness, Denies numbness, Denies tingling and Denies weakness Psychiatric Denies confusion [facility] Medical History Hypertension (Chronic) Pre-diabetes (Chronic) Social History (Updated 02/26/19 @ 05:33 by Merary Hodge DO) marital status: Smoking Status: Never smoker alcohol intake: current substance use type: does not use Social History (Updated 02/26/19 @ 05:33 by Merary Hodge DO) marital status: Smoking Status: Never smoker alcohol intake: current substance use type: does not use Exam Initial Vital Signs Initial Vital Signs: Vital Signs Temperature 98.4 F 02/26/19 05:25 Pulse Rate 114 H 02/26/19 05:25 Respiratory Rate 20 02/26/19 05:25 Blood Pressure 163/79 H 02/26/19 05:25 Pulse Oximetry 97 02/26/19 05:25 Procedures Lumbar Puncture Time Out Performed: Yes Patient Position: upright Skin Prep: Povidone-Iodine 1% Local Anesthetic: lidocaine 1% Amount of anesthesia used (mL): 7 Spinal Needle Gauge: 22G Interspace Used: L3-L4 Fluid Initially Obtained: clear Complications: none Additional Comments: Two attempts initially at L4/5, then L3/4. Unable to obtain pressure, CSF fluid was very slow to drain and patient was in upright position. Course Orders Ordered: ED Orders 02/26/19 05:25 Complete Blood Count AUTO DIFF Stat Comprehensive Metabolic Panel Stat Lactate (Lactic Acid) Urgent Partial Thromboplastin Time Stat Procalcitonin Stat Prothrombin Time INR Stat Troponin & CK Cardiac Panel Stat 02/26/19 05:27 XR chest 1V Stat 02/26/19 05:28 CT head/brain wo con Stat 02/26/19 05:30 Influenza A and B by PCR Rapid Stat 02/26/19 05:34 EKG-12 Lead Stat 02/26/19 06:00 Urinalysis and Microscopic Stat 02/26/19 06:17 Blood Culture Stat 02/26/19 08:10 Cell Count w Diff CSF Stat Cell Count w Diff CSF Stat Glucose CSF Stat HOLD TUBE CSF Stat Meningitis Panel (Film Array) Stat Total Protein CSF Stat 02/26/19 08:41 CSF culture Stat Urine Microscopic Stat Discontinued Medications Sodium Chloride (Normal Saline 0.9%) 1,000 mls @ 1,000 mls/hr IV BOLUS ONE Stop: 02/26/19 06:26 Last Admin: 02/26/19 05:57 Dose: Not Given Sodium Chloride (Normal Saline 0.9%) 2,313.33 mls @ 771.11 mls/hr 30 ml/kg infuse over 3 hr (2313.33 ml) IV NOW ONE Stop: 02/26/19 08:33 Last Infusion: 02/26/19 07:34 Dose: 0 mls/hr Admin: 02/26/19 05:54 Dose: 771.11 mls/hr Morphine Sulfate (Morphine) 4 mg IV NOW ONE Stop: 02/26/19 05:28 Last Admin: 02/26/19 05:42 Dose: 4 mg Morphine Sulfate (Morphine) 4 mg IV NOW ONE Stop: 02/26/19 07:19 Last Admin: 02/26/19 07:30 Dose: 4 mg Ondansetron HCl (Zofran) 4 mg IV NOW ONE Stop: 02/26/19 05:29 Last Admin: 02/26/19 05:43 Dose: 4 mg Ondansetron HCl (Zofran) 4 mg IV NOW ONE Stop: 02/26/19 07:29 Last Admin: 02/26/19 07:30 Dose: 4 mg Vital Signs - 8 hr 02/26/19 05:25 02/26/19 06:09 02/26/19 06:31 Temperature 98.4 F Pulse Rate 114 H 81 78 Respiratory Rate 20 14 14 Blood Pressure 163/79 H Blood Pressure [Left Arm] 139/67 127/56 L Pulse Oximetry 97 93 94 02/26/19 07:01 02/26/19 08:33 Temperature Pulse Rate 94 H 81 Respiratory Rate 18 12 Blood Pressure Blood Pressure [Left Arm] 137/67 135/63 Pulse Oximetry 94 93 MDM - Headache Lab Data Result diagrams: 02/26/19 05:25 02/26/19 05:25 Lab Results 02/26/19 02/26/19 02/26/19 Range/Units 05:25 05:25 05:25 WBC 7.2 (4.5-11.0) X10^3/uL RBC 4.48 (4.0-5.2) X10^6/uL Hgb 14.4 (12.0-16.0) g/dL Hct 41.8 (36-46) % MCV 93.2 (80-100) fL MCH 32.0 (26-34) PG MCHC 34.4 (30-36) % RDW 13.7 (11.6-14.8) % Plt Count 199 (150-400) X10^3/uL Neut % (Auto) 73.3 (50-75) % Lymph % (Auto) 15.3 L (25-40) % [place] % (Auto) 10.8 (3-14) % Eos % (Auto) 0.3 L (2-4) % Baso % (Auto) 0.3 (0-2) % Neut # (Auto) 5300 (7553-4254) /uL Lymph # (Auto) 1100 (5223-6554) /uL [place] # (Auto) 800 (0-900) /uL Eos # (Auto) 0 (0-450) /uL Baso # (Auto) 0 (0-100) /uL PT 12.8 H (10.1-12.7) SECONDS INR 1.1 (0.9-1.3) APTT 35 (26.4-36.2) SECONDS Sodium (137-145) mmol/L Potassium (3.4-5.1) mmol/L Chloride (98-107) mmol/L Carbon Dioxide (22-32) mmol/L BUN (7-17) mg/dL Creatinine (0.52-1.04) mg/dL Estimated GFR (>60) mL/min BUN/Creatinine Ratio (6-22) Glucose (80-110) mg/dL Lactate (0.7-2.1) mmol/L Calcium (8.4-10.2) mg/dL Total Bilirubin (0.2-1.3) mg/dL AST (14-36) IU/L ALT (9-52) IU/L Alkaline Phosphatase (38-126) U/L Total Creatine Kinase (30-135) U/L CK-MB (CK-2) CK-MB (CK-2) Rel Index Troponin I (0.01-0.034) ng/mL Total Protein (6.3-8.2) g/dL Albumin (3.5-5.0) g/dL Globulin (1.7-4.1) g/dL Albumin/Globulin Ratio (1.0-2.8) Procalcitonin 0.09 (<0.5) ng/mL Influenza A & B (PCR) (Negative) 02/26/19 02/26/19 02/26/19 Range/Units 05:25 05:25 05:25 WBC (4.5-11.0) X10^3/uL RBC (4.0-5.2) X10^6/uL Hgb (12.0-16.0) g/dL Hct (36-46) % MCV (80-100) fL MCH (26-34) PG MCHC (30-36) % RDW (11.6-14.8) % Plt Count (150-400) X10^3/uL Neut % (Auto) (50-75) % Lymph % (Auto) (25-40) % [place] % (Auto) (3-14) % Eos % (Auto) (2-4) % Baso % (Auto) (0-2) % Neut # (Auto) (6988-7509) /uL Lymph # (Auto) (5237-0571) /uL [place] # (Auto) (0-900) /uL Eos # (Auto) (0-450) /uL Baso # (Auto) (0-100) /uL PT (10.1-12.7) SECONDS INR (0.9-1.3) APTT (26.4-36.2) SECONDS Sodium 136 L (137-145) mmol/L Potassium 3.8 (3.4-5.1) mmol/L Chloride 98 (98-107) mmol/L Carbon Dioxide 23 (22-32) mmol/L BUN 11 (7-17) mg/dL Creatinine 0.60 (0.52-1.04) mg/dL Estimated GFR > 60.0 (>60) mL/min BUN/Creatinine Ratio 18.3 (6-22) Glucose 143 H (80-110) mg/dL Lactate 2.0 (0.7-2.1) mmol/L Calcium 9.6 (8.4-10.2) mg/dL Total Bilirubin 0.5 (0.2-1.3) mg/dL AST 23 (14-36) IU/L ALT 44 (9-52) IU/L Alkaline Phosphatase 122 (38-126) U/L Total Creatine Kinase 37 (30-135) U/L CK-MB (CK-2) TNP CK-MB (CK-2) Rel Index TNP Troponin I < 0.012 (0.01-0.034) ng/mL Total Protein 7.2 (6.3-8.2) g/dL Albumin 4.3 (3.5-5.0) g/dL Globulin 2.9 (1.7-4.1) g/dL Albumin/Globulin Ratio 1.5 (1.0-2.8) Procalcitonin (<0.5) ng/mL Influenza A & B (PCR) (Negative) 02/26/19 Range/Units 05:30 WBC (4.5-11.0) X10^3/uL RBC (4.0-5.2) X10^6/uL Hgb (12.0-16.0) g/dL Hct (36-46) % MCV (80-100) fL MCH (26-34) PG MCHC (30-36) % RDW (11.6-14.8) % Plt Count (150-400) X10^3/uL Neut % (Auto) (50-75) % Lymph % (Auto) (25-40) % [place] % (Auto) (3-14) % Eos % (Auto) (2-4) % Baso % (Auto) (0-2) % Neut # (Auto) (1952-9185) /uL Lymph # (Auto) (0464-3510) /uL [place] # (Auto) (0-900) /uL Eos # (Auto) (0-450) /uL Baso # (Auto) (0-100) /uL PT (10.1-12.7) SECONDS INR (0.9-1.3) APTT (26.4-36.2) SECONDS Sodium (137-145) mmol/L Potassium (3.4-5.1) mmol/L Chloride (98-107) mmol/L Carbon Dioxide (22-32) mmol/L BUN (7-17) mg/dL Creatinine (0.52-1.04) mg/dL Estimated GFR (>60) mL/min BUN/Creatinine Ratio (6-22) Glucose (80-110) mg/dL Lactate (0.7-2.1) mmol/L Calcium (8.4-10.2) mg/dL Total Bilirubin (0.2-1.3) mg/dL AST (14-36) IU/L ALT (9-52) IU/L Alkaline Phosphatase (38-126) U/L Total Creatine Kinase (30-135) U/L CK-MB (CK-2) CK-MB (CK-2) Rel Index Troponin I (0.01-0.034) ng/mL Total Protein (6.3-8.2) g/dL Albumin (3.5-5.0) g/dL Globulin (1.7-4.1) g/dL Albumin/Globulin Ratio (1.0-2.8) Procalcitonin (<0.5) ng/mL Influenza A & B (PCR) Negative (Negative) Discharge Plan Departure Clinical Impression: Headache Prescriptions: No Action PHENAZOPYRIDINE HYDROCHLORIDE (Pyridium) 200 mg PO Qty: 0 RF: 0 SULFAMETHOX/TRIMETH (SULFAMETHOX/TRIMETH SS) 1 tab PO Qty: 0 RF: 0 aspirin 81 MG tablet,delayed release (DR/EC) 81 mg PO QDAY Qty: 0 RF: 0 metoprolol tartrate 25 MG tablet 25 mg PO BID Qty: 0 RF: 0 [UNKNOWN BP MED] Qty: 0 RF: 0 oxycodone-acetaminophen [Percocet] 5 MG/325 MG tablet 1 tab PO Q4HP PRNQty: 15 RF: 0
[2019-02-26 08:49] LABS: RBC Urine None Seen (0-5/HPF)
[2019-02-26 09:02] LABS: Glucose CSF 67 mg/dL (40-70); Total Protein CSF 28 mg/dL (12-60)
[2019-02-26 09:10] LABS: Appearance CSF C (Clear); CSF Tube Number 1; CSF Tube Volume 1.0 mL; Color CSF Colorless (Colorless)
[2019-02-26 09:11] LABS: Red Blood Cell CSF 10 RBC /uL; White Blood Cell CSF 10 MONO/uL (0-5)
[2019-02-26 09:11] LABS: Bacteria Urine Few (2-10); Culture Indicated Urine Specimen Cultured; Squamous Epithelial Cell Urine 0-1 /HPF (0-5/HPF); WBC Urine 1-5/HPF (0-5/HPF)
[2019-02-26 09:12] LABS: Appearance CSF C (Clear); CSF Tube Number 4; CSF Tube Volume 1.0 mL; Color CSF Colorless (Colorless); Red Blood Cell CSF 55 RBC /uL; White Blood Cell CSF 2.5 MONO/uL (0-5)
[2019-02-26 09:55] LABS: Cryptococcus neoformans/gattii Not Detected (Not Detect); Enterovirus Not Detected (Not Detect); Escherichia coli K1 Not Detected (Not Detect); Haemophilus influenzae Not Detected (Not Detect); Herpes simplex virus 1 Not Detected (Not Detect); Herpes simplex virus 2 Not Detected (Not Detect); Human herpesvirus 6 Not Detected (Not Detect); Human parechovirus Not Detected (Not Detect); Listeria monocytogenes Not Detected (Not Detect); Neisseria meningitidis Not Detected (Not Detect); Streptococcus agalactiae Not Detected (Not Detect); Streptococcus pneumoniae Not Detected (Not Detect); Varicella Zoster Virus Not Detected
[2019-02-26 10:07] LABS: Mononuclear WBC CSF 100 %; Polynuclear WBC CSF 0 %
[2019-02-26 10:08] LABS: HOLD TUBE CSF Y
== END 2019-02-26 11:23 | disposition home or self-care (01) ==
PROVIDERS: Emergency Medicine; Emergency Provider Emergency Medicine
DX: R51 Headache (principal); R00.0 Tachycardia, unspecified; R07.9 Chest pain, unspecified; R06.02 Shortness of breath
CPT/HCPCS: 36415; 36591; 70450; 71045; 80053; 81003; 81015; 82550; 82945; 83605; 84145; 84157; 84484; 85025; 85610; 85730; 86788; 86789; 87040; 87070; 87077; 87086; 87205; 87400; 87798; 87880; 89051; 93005; 93010; 96361; 96374; 96375; 96376; 99284; 99285; J2270; J2405

== ENCOUNTER → 2022-09-26 12:53 | Outpatient (CLI) | payer OTHER, MEDICARE, SELFPAY ==
--- NOTE | 2022-09-26 12:56 | DI.MG.S_ITS ---
BILATERAL DIGITAL SCREENING MAMMOGRAM 3D/2D WITH CAD: 09/26/2022 CLINICAL: Routine screening. Comparison is made to exams dated: 09/11/2021 mammogram, 12/04/2016 mammogram, and 08/24/2015 mammogram - [facility]. Both breasts are heterogeneously dense, which may obscure small masses (category c / 51-75% glandular tissue). Current study was also evaluated with a Computer Aided Detection (CAD) system. No significant masses, calcifications, or other findings are seen in either breast. There has been no significant interval change. IMPRESSION: NEGATIVE There is no mammographic evidence of malignancy. A 1 year screening mammogram is recommended. Based on the Tyrer Cuzick model (a risk assessment model) the patient's lifetime risk is 5.7% and her 10 year risk is 3.6%. According to the ACR, ACS, and NCCN guidelines, an annual breast MRI exam along with mammogram is recommended if the patient's lifetime risk is 20% or greater. This exam was interpreted at Station ID: [id number]. NOTE: For mammograms, a report in lay terms will be sent to the patient. Approximately 15% of breast malignancies will not be visualized mammographically. In the management of a palpable breast mass, a negative mammogram must not discourage biopsy of a clinically suspicious lesion. Electronically Signed By: Rm baker/swathi:09/26/2022 13:51:38 letter sent: Normal Exam ACR BI-RADS Category 1: Negative [id number]
== END ==
PROVIDERS: PCP Nurse Practitioner; Referring Provider Nurse Practitioner; Visit Provider Nurse Practitioner
DX: Z12.31 Encounter for screening mammogram for malignant neoplasm of breast (principal)
CPT/HCPCS: 77063; 77067

== ENCOUNTER 2023-08-07 02:03 | Emergency (ER) | payer OTHER, MEDICARE, SELFPAY ==
[2023-08-07 02:12] VITALS: BP 117/68; PULSE 172; RESP 20; TEMP 38.4; O2SAT 96; BMI 28.1
--- NOTE | 2023-08-07 02:21 | DI.RAD.S_ITS ---
PROCEDURE: XR CHEST 1V INDICATIONS: FEVER, BODY ACHES TECHNIQUE: One view of the chest was acquired. COMPARISON: Merged With [facility], CR, XR CHEST 1V, 02/26/2019, 5:52. FINDINGS: Surgical changes and devices: None. Lungs and pleura: Lower lung volumes. Prominent pulmonary markings, most pronounced in the perihilar region. Minimal streaky opacity bilaterally. Findings appear similar to CXR from 2019. No consolidation is identified. No significant pleural effusion. No pneumothorax. Mediastinum: Mediastinal contours appear unchanged. Heart size is normal. Bones and chest wall: No suspicious bony lesions. Overlying soft tissues appear unremarkable. IMPRESSION: Low lung volumes and prominent pulmonary markings. This could be due to atelectasis or vascular crowding. No consolidation is identified. This report is concordant with the overnight preliminary interpretation. Dictated by: Rm Cotton M.D. on 08/07/2023 at 7:42 Approved by: Rm Cotton M.D. on 08/07/2023 at 7:45
--- NOTE | 2023-08-07 02:21 | DI.CT.S_ITS ---
PROCEDURE: CT HEAD/BRAIN WO CON INDICATIONS: SEVERE FRONTAL HEADACHE X6 DAYS TECHNIQUE: Noncontrast 4.5 mm thick angled axial sections acquired from the foramen magnum to the vertex, with coronal and sagittal reformats. For radiation dose reduction, the following was used: automated exposure control, adjustment of mA and/or kV according to patient size. COMPARISON: [facility], CT, CT HEAD/BRAIN WO CON, 02/26/2019, 5:32. FINDINGS: Image quality: Excellent. CSF spaces: Basal cisterns are patent. No extra-axial fluid collections. The ventricles are symmetric in size and shape. Brain: No intracranial bleeds or masses. There is cerebral volume loss for age, with resultant ventricular and sulcal prominence. There are periventricular and deep white matter chronic small vessel ischemic changes. There is intracranial internal carotid artery atherosclerosis. Skull and face: Calvarium and visualized facial bones appear intact, without suspicious lesions. Sinuses: Visualized sinuses and mastoids are clear. IMPRESSION: No acute intracranial pathology. No significant discrepancy with the shift nurse manager radiology preliminary report. Dictated by: Dain Salamanca M.D. on 08/07/2023 at 6:59 Approved by: Dain Salamanca M.D. on 08/07/2023 at 7:00
--- NOTE | 2023-08-07 02:23 | ED.HA ---
HPI - Headache General Chief Complaint: Headache Stated Complaint: migraine, nausea, body aches Time Seen by Provider: 08/07/23 02:05 Mode of arrival: Wheelchair History of Present Illness HPI Narrative: 72-year-old female with history fibromyalgia, hypertension presents by private vehicle from home for approximately 6 days of headache, body aches, and 1 episode of nausea. Patient noted to be febrile and tachycardic in triage. Patient states that she aches from the tips of my toenails to the top of my head. Taking [id number] medications at home without relief. Related Data Home Medications Medication Instructions Recorded Confirmed aspirin 81 mg tablet,delayed 81 mg PO DAILY ##0 05/20/16 release albuterol sulfate 90 mcg/actuation 02/26/19 aerosol inhaler escitalopram oxalate 20 mg tablet 20 mg PO DAILY 02/26/19 02/26/19 ketorolac 0.5 % eye drops 1 drp EYE-RIGHT [id number] 02/26/19 02/26/19 losartan 100 1 tab PO DAILY 02/26/19 02/26/19 mg-hydrochlorothiazide 25 mg tablet metformin 500 mg tablet 500 mg PO BID 02/26/19 02/26/19 metoprolol tartrate 50 mg tablet 50 mg PO BID 02/26/19 02/26/19 pravastatin 20 mg tablet 20 mg PO BEDTIME 02/26/19 02/26/19 Previous Rx's Medication Instructions Recorded hydrocodone 5 mg-acetaminophen 325 1 tab PO Q4-6H PRN pain #14 tabs 02/26/19 mg tablet ([place]) ondansetron 4 mg disintegrating 4 mg PO Q6-8H PRN nausea and 02/26/19 tablet vomiting #10 tabs Allergies Allergy/AdvReac Type Severity Reaction Status Date / Time No Known Drug Allergies Allergy Verified 02/26/19 06:02 Review of Systems Review of Systems Narrative: Negative except as noted above Patient History Medical History (Updated 08/07/23 @ 05:31 by Merary Norris MD) Pre-diabetes Hypertension Social History (Updated 02/26/19 @ 05:33 by Merary Hodge DO) marital status: Smoking Status: Never smoker alcohol intake: current substance use type: does not use Smoking Status: Never smoker alcohol intake frequency: a few times a month Substance Use Type: does not use Exam Initial Vital Signs Initial Vital Signs: Vital Signs Temperature 101.1 F H 08/07/23 02:12 Pulse Rate 172 H 08/07/23 02:12 Respiratory Rate 20 08/07/23 02:12 Blood Pressure 117/68 08/07/23 02:12 Pulse Oximetry 96 08/07/23 02:12 Oxygen Delivery Method Room Air 08/07/23 02:12 Const: Awake, alert, in pain, uncomfortable, nontoxic, washcloth over her eyes and forehead Neck: full ROM, no rigidity ENT: Atraumatic, dentition normal, mucous membranes moist Cardiac: tachycardia, regular rhythm RESP: unlabored, clear bilaterally, no wheezing GI: Atraumatic, soft, nontender Skin: Warm, Dry, intact, no rashes Neuro: AO x3, CN II-XII grossly intact, moves all extremities Course Course Course Narrative: Uncomfortable but nontoxic patient presenting for headache and incidentally found to be febrile and tachycardic in triage. Patient has full range of motion of her head and neck, and symptoms have reportedly been present for 1 week. Based on the duration of symptoms as well as no nuchal rigidity bacterial meningitis is much less likely on the differential,. We will order scan of brain, migraine cocktail, and we will order blood cultures, procalcitonin, lactic acid. Orders Ordered: ED Orders 08/07/23 02:21 CT head/brain wo con Stat XR chest 1V Stat 08/07/23 02:22 EKG-12 Lead Stat 08/07/23 02:40 Complete Blood Count AUTO DIFF Stat Comprehensive Metabolic Panel Stat Lactate (Lactic Acid) Stat Procalcitonin Stat Troponin & CK Cardiac Panel Stat 08/07/23 03:00 Blood Culture Stat Respiratory Panel (Film Array) Stat 08/07/23 03:50 Urinalysis and Microscopic Stat Discontinued Medications Acetaminophen (Acetaminophen 325 Mg Tablet) 975 mg PO NOW ONE Stop: 08/07/23 02:22 Last Admin: 08/07/23 03:31 Dose: Not Given Documented By: MICHAELLE Dexamethasone (Dexamethasone 10 Mg/Ml Vial) 10 mg IV NOW ONE Stop: 08/07/23 04:41 Last Admin: 08/07/23 04:52 Dose: 10 mg Diphenhydramine HCl (Diphenhydramine 50 Mg/Ml Vial) 50 mg IV NOW ONE Stop: 08/07/23 02:27 Last Admin: 08/07/23 02:56 Dose: 50 mg Documented By: MICHAELLE Sodium Chloride (Normal Saline 0.9%) 1,000 mls @ 1,000 mls/hr IV BOLUS ONE Stop: 08/07/23 03:25 Last Infusion: 08/07/23 03:39 Dose: Infused Documented By: Admin: 08/07/23 02:57 Dose: 1,000 mls/hr Documented By: MICHAELLE Acetaminophen (Ofirmev) 1,000 mg in 100 mls @ 400 mls/hr IV NOW ONE Stop: 08/07/23 02:40 Last Infusion: 08/07/23 03:16 Dose: Infused Documented By: Admin: 08/07/23 02:56 Dose: 400 mls/hr Documented By: MICHAELLE Sodium Chloride (Normal Saline 0.9%) 1,000 mls @ 1,000 mls/hr IV BOLUS ONE Stop: 08/07/23 04:33 Last Admin: 08/07/23 03:37 Dose: 1,000 mls/hr Documented By: MICHAELLE Ketorolac Tromethamine (Ketorolac 30 Mg/Ml Vial) 15 mg IV NOW ONE Stop: 08/07/23 04:41 Last Admin: 08/07/23 04:52 Dose: 15 mg Metoclopramide HCl (Metoclopramide 10 Mg/2 Ml Inj) 10 mg IV NOW ONE Stop: 08/07/23 02:27 Last Admin: 08/07/23 02:56 Dose: 10 mg Documented By: MICHAELLE Reevaluation(s) Reevaluation #1: Patient reassessed, fever is controlled, heart rate has decreased to 80 beats per minute after receiving IV Tylenol, headache cocktail. Patient is now resting comfortably in the bed, states her headache is much better, although still somewhat present. She is sitting upright in bed and is no longer lying with washcloth over her eyes and forehead. She states that the headache seems to go from her eyes over to the back of her neck in his tension-like in nature. Laboratory work is significant for WBC count 11.8, nonspecific. CT head negative for acute findings. Chest x-ray shows low lung volumes with nonspecific findings in the bilateral bases, however now that patient is feeling better she denies any respiratory complaints or shortness of breath. Looking back on patient's previous records it seems that she was here in January of 2019 for nearly identical presentation, even down to complaining of pain all over from her head to her toes and even stating that her skin hurts. At that time she underwent lumbar puncture which was negative for any concerning findings. With completely normal labs, negative procalcitonin, negative lactic acid, normal head CT and much less inclined to do a lumbar puncture since this appears to be an identical presentation to 4 years ago. Patient reassessed after 2nd dose of medications, she states she is feeling much better and is ready to go home. Patient cousneled on the importance of PCP follow up. Was advised to take Tylenol and Motrin as needed for fever and discomfort and to make sure she drinks plenty of fluids. ED return precautions discussed at bedside. Patient expressed understanding of the plan and is in agreement at this time. All questions answered at the time of discharge. Vital Signs Vital signs: Vital Signs - 8 hr 08/07/23 02:12 08/07/23 02:40 08/07/23 03:27 Temperature 101.1 F H Pulse Rate 172 H 140 H 129 H Respiratory Rate 20 22 19 Blood Pressure 117/68 147/73 H 145/73 H Pulse Oximetry 96 98 99 Oxygen Delivery Method Room Air Room Air Room Air 08/07/23 03:41 08/07/23 03:56 08/07/23 04:26 Temperature 99.2 F Pulse Rate 92 H 88 Respiratory Rate 24 20 Blood Pressure 126/88 119/55 L Pulse Oximetry 99 96 Oxygen Delivery Method Room Air Room Air MDM - Headache Lab Data 08/07/23 02:40 08/07/23 02:40 Labs: Lab Results 08/07/23 08/07/23 08/07/23 Range/Units 02:40 03:00 03:50 WBC 11.8 H (4.5-11.0) X10^3/uL RBC 4.06 (4.0-5.2) X10^6/uL Hgb 13.1 (12.0-16.0) g/dL Hct 39.0 (36-46) % MCV 95.9 (80-100) fL MCH 32.3 (26-34) PG MCHC 33.7 (30-36) % RDW 13.6 (11.6-14.8) % Plt Count 184 (150-400) X10^3/uL Neut % (Auto) 87.3 H (50-75) % Lymph % (Auto) 5.3 L (25-40) % [place] % (Auto) 6.6 (3-14) % Eos % (Auto) 0.4 L (2-4) % Baso % (Auto) 0.4 (0-2) % Neut # (Auto) 11655 H (0393-9743) /uL Lymph # (Auto) 600 L (7807-6228) /uL [place] # (Auto) 800 (0-900) /uL Eos # (Auto) 0 (0-450) /uL Baso # (Auto) 100 (0-100) /uL Sodium 132 L (137-145) mmol/L Potassium 3.8 (3.4-5.1) mmol/L Chloride 97 L (98-107) mmol/L Carbon Dioxide 26 (22-32) mmol/L BUN 11 (7-17) mg/dL Creatinine 0.80 (0.52-1.04) mg/dL Estimated GFR > 60 (>60) mL/min BUN/Creatinine Ratio 13.8 (6-22) Glucose 159 H (80-110) mg/dL Lactate 1.7 (0.7-2.1) mmol/L Calcium 9.7 (8.4-10.2) mg/dL Total Bilirubin 0.7 (0.2-1.3) mg/dL AST 25 (14-36) IU/L ALT 35 H (<35) IU/L Alkaline Phosphatase 85 (38-126) U/L Total Creatine Kinase 41 (30-135) U/L Troponin I < 0.012 (0.01-0.034) ng/mL Total Protein 7.5 (6.3-8.2) g/dL Albumin 4.3 (3.5-5.0) g/dL Globulin 3.2 (1.7-4.1) g/dL Albumin/Globulin Ratio 1.3 (1.0-2.8) Procalcitonin 0.25 (<0.5) ng/mL Urine Color Yellow Urine Appearance Clear Urine pH 6.5 (4.5-8.0) Ur Specific [place] <=1.005 (1.000-1.035) Urine Protein Negative (Negative) Urine Glucose (UA) Negative (Negative) g/dL Urine Ketones Negative (NEGATIVE) Urine Occult Blood Negative (Negative) Urine Nitrate Negative (Negative) Urine Bilirubin Negative (NEGATIVE) Urine Urobilinogen 0.2 (0.2) E.U./dL Ur Leukocyte Esterase Negative (NEGATIVE) Urine RBC 0-1/hpf (0-5/HPF) Urine WBC 0-1/hpf (0-5/HPF) Ur Squamous Epith Cells 0-1 /hpf (0-5/HPF) Urine Bacteria None seen (None) Ur Culture Indicated? Cult not indicated Chlamy pneumoniae PCR Not detected (Not Detect) Adenovirus (PCR) Not detected (Not Detect) B.parapertussis DNA PCR Not detected (Not Detecte) Coronavirus OC43 (PCR) Not detected (Not Detect) Coronavirus HKU1 (PCR) Not detected (Not Detect) Coronavirus 229E (PCR) Not detected (Not Detect) SARS-CoV-2 (PCR) Not detected (Not Detecte) Coronavirus NL63 (PCR) Not detected (Not Detect) Human Metapneumovir PCR Not detected (Not Detect) Influenza Type A (PCR) Not detected (Not Detect) Influenza Type B (PCR) Not detected (Not Detect) M. pneumoniae (PCR) Not detected (Not Detect) Parainfluenza 1 (PCR) Not detected (Not Detect) Parainfluenza 2 (PCR) Not detected (Not Detect) Parainfluenza 3 (PCR) Not detected (Not Detect) Parainfluenza 4 (PCR) Not detected (Not Detect) RSV (PCR) Not detected (Not Detect) Entero/Rhino (PCR) Not detected (Not Detect) Discharge Plan Departure Patient Disposition: Home Clinical Impression: Headache Instructions: DI for Migraine Prescriptions: No Action aspirin 81 MG tablet,delayed release (DR/EC) 81 mg PO DAILY Qty: 0 metformin 500 mg tablet 500 mg PO BID Patient Comments: TAKE 1 TABLET BY MOUTH TWICE DAILY WITH FOOD FOR DIABETES ketorolac 0.5 % drops 1 drp EYE-RIGHT [id number] Patient Comments: INSTILL 1 DROP TWICE DAILY INTO RIGHT EYE FOR 5 WEEKS. losartan-hydrochlorothiazide 100-25 mg tablet 1 tab PO DAILY Patient Comments: TAKE 1 TABLET BY MOUTH ONCE DAILY metoprolol tartrate 50 mg tablet 50 mg PO BID Patient Comments: TAKE 1 TABLET BY MOUTH TWICE DAILY pravastatin 20 mg tablet 20 mg PO BEDTIME Patient Comments: TAKE 1 TABLET BY MOUTH AT BEDTIME albuterol sulfate 90 mcg/actuation HFA aerosol inhaler escitalopram oxalate 20 mg tablet 20 mg PO DAILY hydrocodone-acetaminophen [[place]] 5-325 mg tablet 1 tab PO Q4-6H PRN (Reason: pain) Qty: 14 0RF ondansetron 4 mg tablet,disintegrating 4 mg PO Q6-8H PRN (Reason: nausea and vomiting) Qty: 10 0RF Referrals: Vivien Aguirre ARNP [Primary Care Provider] - Stand Alone Forms: Patient Portal/API
[2023-08-07 02:40] VITALS: BP 147/73; PULSE 140; RESP 22; O2SAT 98
[2023-08-07] MEDS: METOCLOPRAMIDE 10 MG/2 ML INJ IV (02:56)
[2023-08-07] MEDS: diphenhydrAMINE 50 MG/ML VIAL IV (02:56)
[2023-08-07] MEDS: ACETAMINOPHEN IV 1,000 MG/100 ML VIAL 400 MG IV (02:56)
[2023-08-07] MEDS: SODIUM CHLORIDE 0.9% 1,000 ML 1000 ML IV ×2 (02:57→03:37)
[2023-08-07 03:15] LABS: Add Manual Diff / Slide Review NO; Basophils Absolute Auto 100 /uL (0-100); Basophils Percent Auto 0.4 % (0-2); Eosinophils Absolute Auto 0 /uL (0-450); Eosinophils Percent Auto 0.4 % (2-4); Hemoglobin 13.1 g/dL (12.0-16.0); Lymphocytes Absolute Auto 600 /uL (1100-4500); Lymphocytes Percent Auto 5.3 % (25-40); Mean Corpuscular HGB Conc 33.7 % (30-36); Mean Corpuscular Hemoglobin 32.3 PG (26-34); Mean Corpuscular Volume 95.9 fL (80-100); Monocytes Absolute Auto 800 /uL (0-900); Monocytes Percent Auto 6.6 % (3-14); Neutrophils Absolute Auto 10300 /uL (1500-7000); Neutrophils Percent Auto 87.3 % (50-75); Platelet Count 184 X10^3/uL (150-400); Red Blood Cell Count 4.06 X10^6/uL (4.0-5.2); Red Cell Distribution Width 13.6 % (11.6-14.8); White Blood Cell Count 11.8 X10^3/uL (4.5-11.0)
[2023-08-07 03:27] VITALS: BP 145/73; PULSE 129; RESP 19; O2SAT 99
[2023-08-07 03:28] LABS: Lactate (Lactic Acid) 1.7 mmol/L (0.7-2.1)
[2023-08-07 03:29] LABS: Alanine Aminotransferase 35 IU/L (<35); Albumin 4.3 g/dL (3.5-5.0); Albumin Globulin Ratio 1.3 (1.0-2.8); Alkaline Phosphatase 85 U/L (38-126); Aspartate Aminotransferase 25 IU/L (14-36); BUN Creatinine Ratio 13.8 (6-22); Bilirubin Total 0.7 mg/dL (0.2-1.3); Blood Urea Nitrogen 11 mg/dL (7-17); Calcium 9.7 mg/dL (8.4-10.2); Carbon Dioxide 26 mmol/L (22-32); Chloride 97 mmol/L (98-107); Creatine Kinase 41 U/L (30-135); Estimated Glomerular Filt Rate > 60 mL/min (>60); Globulin 3.2 g/dL (1.7-4.1); Glucose 159 mg/dL (80-110); HEMOLYSIS < 15 (0-50); Potassium 3.8 mmol/L (3.4-5.1); Sodium 132 mmol/L (137-145); Total Protein 7.5 g/dL (6.3-8.2)
[2023-08-07 03:39] LABS: Troponin I < 0.012 ng/mL (0.01-0.034)
[2023-08-07 03:41] VITALS: TEMP 37.3
[2023-08-07 03:44] LABS: Procalcitonin 0.25 ng/mL (<0.5)
[2023-08-07 03:56] VITALS: BP 126/88; PULSE 92; RESP 24; O2SAT 99
[2023-08-07 03:59] LABS: Appearance Urine UA CLEAR; Bilirubin Urine UA NEGATIVE (NEGATIVE); Color Urine UA YELLOW; Glucose Urine UA NEGATIVE (Negative); Ketones Urine UA NEGATIVE (NEGATIVE); Leukocyte Esterase Urine UA NEGATIVE (NEGATIVE); Nitrite Urine UA NEGATIVE (Negative); Occult Blood Urine UA NEGATIVE (Negative); Protein Urine UA NEGATIVE (Negative); Specific Gravity Urine UA <=1.005 (1.000-1.035); Urobilinogen Urine UA 0.2 E.U./dL (0.2)
[2023-08-07 04:13] LABS: pH Urine UA 6.5 (4.5-8.0)
[2023-08-07 04:16] LABS: RBC Urine 0-1/HPF (0-5/HPF); WBC Urine 0-1/HPF (0-5/HPF)
[2023-08-07 04:17] LABS: Bacteria Urine None Seen; Culture Indicated Urine Cult Not Indicated; Squamous Epithelial Cell Urine 0-1 /HPF (0-5/HPF)
[2023-08-07 04:24] LABS: Adenovirus Not Detected (Not Detect); B. parapertussis Not Detected (Not Detecte); Bordetella pertussis Not Detected (Not Detect); Chlamydophila pneumoniae Not Detected (Not Detect); Coronavirus 229E Not Detected (Not Detect); Coronavirus HKU1 Not Detected (Not Detect); Coronavirus NL 63 Not Detected (Not Detect); Coronavirus OC43 Not Detected (Not Detect); Human Metapneumovirus Not Detected (Not Detect); Human Rhinovirus/Enterovirus Not Detected (Not Detect); Influenza A Not Detected (Not Detect); Influenza B Not Detected (Not Detect); Mycoplasma pneumoniae Not Detected (Not Detect); Parainfluenza Virus 1 Not Detected (Not Detect); Parainfluenza Virus 2 Not Detected (Not Detect); Parainfluenza Virus 3 Not Detected (Not Detect); Parainfluenza Virus 4 Not Detected (Not Detect); Respiratory Syncytial Virus Not Detected (Not Detect); SARS- CoV-2 Not Detected (Not Detecte)
[2023-08-07 04:26] VITALS: BP 119/55; PULSE 88; RESP 20; O2SAT 96
[2023-08-07] MEDS: KETOROLAC 30 MG/ML VIAL 15 MG IV (04:52)
[2023-08-07] MEDS: DEXAMETHASONE 10 MG/ML VIAL IV (04:52)
== END 2023-08-07 05:10 | disposition home or self-care (01) ==
PROVIDERS: Emergency Provider Emergency Medicine; PCP Nurse Practitioner
DX: R51.9 Headache, unspecified (principal); I10 Essential (primary) hypertension; Z11.52 Encounter for screening for COVID-19
CPT/HCPCS: 36415; 70450; 71045; 80053; 81001; 82550; 83605; 84145; 84484; 85025; 87040; 87633; 93005; 96361; 96374; 96375; 99284; J0131; J1100; J1200; J1885; J2765

== ENCOUNTER 2023-08-10 13:07 | Inpatient (IN) | payer OTHER, MEDICARE, SELFPAY ==
[2023-08-10] VITALS (18 sets, daily range): BP systolic 125–163; BP diastolic 58–120; PULSE 78–90; RESP 14–36; TEMP 36.4–36.6; O2SAT 93–98; BMI 29.0
--- NOTE | 2023-08-10 13:32 | ED_ITS ---
HPI - Headache General Chief Complaint: Headache Stated Complaint: vomiting/ headache Time Seen by Provider: 08/10/23 13:27 History of Present Illness HPI Narrative: Patient is a 72-year-old female history of fibromyalgia hypertension presents for the 2nd time this week with severe worsening headache. She started having fever and not feeling well 5 days ago. She was seen evaluated here August 07. At that time she describes severe worsening headache she was given migraine cocktail had had head CT and blood work. Leukocytosis of 11.[address] was negative respiratory panel negative. She has had similar presentation in 2019 where she did have a lumbar puncture and it was negative. She would a negative lactic acid and negative procalcitonin. Symptoms were thought to be viral. She ultimately felt better and ready to go. Today she presents similarly with severe headache persistent vomiting unable to control the vomiting and it makes the headache worse. No numbness tingling or weakness. She describes it a splitting headache. Overall appears erratic and ill. Related Data Home Medications Medication Instructions Recorded Confirmed aspirin 81 mg tablet,delayed 81 mg PO DAILY ##0 05/20/16 release albuterol sulfate 90 mcg/actuation 02/26/19 aerosol inhaler escitalopram oxalate 20 mg tablet 20 mg PO DAILY 02/26/19 02/26/19 ketorolac 0.5 % eye drops 1 drp EYE-RIGHT [id number] 02/26/19 02/26/19 losartan 100 1 tab PO DAILY 02/26/19 02/26/19 mg-hydrochlorothiazide 25 mg tablet metformin 500 mg tablet 500 mg PO BID 02/26/19 02/26/19 metoprolol tartrate 50 mg tablet 50 mg PO BID 02/26/19 02/26/19 pravastatin 20 mg tablet 20 mg PO BEDTIME 02/26/19 02/26/19 amlodipine 5 mg tablet 5 mg PO DAILY 08/10/23 08/10/23 amlodipine 5 mg tablet 5 mg PO DAILY 08/10/23 08/10/23 amlodipine 5 mg tablet 5 mg PO DAILY 08/10/23 08/10/23 atorvastatin 20 mg tablet 20 mg PO DAILY 08/10/23 08/10/23 gabapentin 300 mg capsule 600 mg PO BID 08/10/23 08/10/23 hydrochlorothiazide 25 mg tablet 25 mg PO QAM 08/10/23 08/10/23 losartan 100 mg tablet 100 mg PO DAILY blood pressure 08/10/23 08/10/23 metformin 500 mg tablet 500 mg PO BID diabetes mellitus 08/10/23 08/10/23 metoprolol tartrate 50 mg tablet 50 mg PO BID 08/10/23 08/10/23 sodium,potassium,mag sulfates 17.5 PO 08/10/23 gram-3.13 gram-1.6 gram oral soln venlafaxine 37.5 mg tablet 37.5 mg PO DAILY 08/10/23 08/10/23 Previous Rx's Medication Instructions Recorded hydrocodone 5 mg-acetaminophen 325 1 tab PO Q4-6H PRN pain #14 tabs 02/26/19 mg tablet ([place]) ondansetron 4 mg disintegrating 4 mg PO Q6-8H PRN nausea and 02/26/19 tablet vomiting #10 tabs sodium,potassium,mag sulfates 17.5 See Rx Instructions PO .COMPLEX 08/09/23 gram-3.13 gram-1.6 gram oral soln #354 mL (Suprep Bowel Prep Kit) Allergies Allergy/AdvReac Type Severity Reaction Status Date / Time No Known Drug Allergies Allergy Verified 08/10/23 13:37 Patient History Medical History (Updated 08/10/23 @ 18:46 by Peyton Olivares DO) Pre-diabetes Hypertension Social History (Updated 02/26/19 @ 05:33 by Merary Hodge DO) marital status: Smoking Status: Never smoker alcohol intake: current substance use type: does not use Smoking Status: Never smoker alcohol intake frequency: a few times a month Substance Use Type: does not use Exam Initial Vital Signs Initial Vital Signs: Vital Signs Pulse Rate 85 08/10/23 13:23 Pulse Oximetry 96 08/10/23 13:23 GENERAL: Ill-appearing 72-year-old female upright appears in pain vomiting HEENT: Head atraumatic,EOMI, pupils reactive, face symmetric, [moist] mucous membranes CARDIOVASCULAR: Regular rate and rhythm without murmurs, rubs or gallops. RESPIRATORY: Breath sounds equal bilaterally, no wheezes rales or rhonchi. ABDOMEN: Soft, nontender. Normoactive bowel sounds all 4 quadrants. No guarding or rebound. EXTREMITIES: Normal range of motion, no clubbing or edema. Neurovascularly intact NEUROLOGICAL: Alert and oriented x4.Normal gait and speech. Maintenance Apprentice strength equal bilaterally no facial droop SKIN: Warm, dry, no laceration, no petechiae, no rashes or lesions. Procedures Lumbar Puncture Patient Position: upright Skin Prep: Povidone-Iodine 1% Local Anesthetic: lidocaine 1% Amount of anesthesia used (mL): 3 Spinal Needle Gauge: 22G Interspace Used: L4-L5 Fluid Initially Obtained: clear Complications: none Course Orders Ordered: ED Orders 08/10/23 13:32 CT head/brain wo con Stat 08/10/23 13:35 CBC Auto Diff [Complete Blood Count AUTO DIFF] Stat CMP [Comprehensive Metabolic Panel] Stat Lactate (Lactic Acid) Stat Procalcitonin Stat Respiratory Panel (Film Array) Stat 08/10/23 14:00 CSF culture Stat Meningitis Panel (Film Array) Stat 08/10/23 14:29 EKG-12 Lead Stat 08/10/23 14:40 Blood Culture Stat 08/10/23 15:03 Cell Count w Diff CSF Stat Glucose CSF Stat Total Protein CSF Stat 08/13/23 16:30 Vancomycin Trough Urgent 08/13/23 20:00 Vancomycin Peak Urgent Acetaminophen (Acetaminophen 325 Mg Tablet) 650 mg PO Q6H ISA Amlodipine Besylate (Amlodipine 5 Mg Tablet) 5 mg PO DAILY ISA Enoxaparin Sodium (Enoxaparin 40 Mg/0.4 Ml Syringe) 40 mg SUBCUT DAILY ISA Gabapentin (Gabapentin 300 Mg Capsule) 600 mg PO BID ISA Hydrochlorothiazide (Hydrochlorothiazide 25 Mg Tablet) 25 mg PO QAM ISA Ampicillin Sodium 2,000 mg/ (Sodium Chloride) 100 mls @ 200 mls/hr IV Q4H ISA Ceftriaxone Sodium 2,000 mg/ (Sodium Chloride) 100 mls @ 200 mls/hr IV Q12H ISA Sodium Chloride (Normal Saline 0.45%) 1,000 mls @ 100 mls/hr IV CONT ISA Dextrose (D10w) 100 mls @ 1,200 mls/hr IV PRN PRN PRN Reason: Hypoglycemia Insulin Human Lispro (Insulin Lispro 100 Unit/Ml 3ml Vial) 0 unit SUBCUT ACHS ISA; Protocol Losartan Potassium (Losartan 50 Mg Tablet) 100 mg PO DAILY ISA Metoprolol Tartrate (Metoprolol Ir 50 Mg Tablet) 50 mg PO BID ISA Naloxone HCl (Naloxone 0.4 Mg/Ml Vial) 0.2 mg IV Q2MIN PRN PRN Reason: Opiate Reversal Ondansetron HCl (Ondansetron 4 Mg/2 Ml Inj) 4 mg IV Q8HR PRN PRN Reason: Nausea And Vomiting Oxycodone HCl (Oxycodone Ir 5 Mg Tablet) 5 mg PO Q3H PRN PRN Reason: Pain, Moderate (4-6) Sennosides (Sennosides 8.6 Mg Tablet) 17.2 mg PO BEDTIME ISA Vancomycin HCl (Vancomycin Per Pharmacy) 1 request MISC NOW PRN PRN Reason: Meningitis Discontinued Medications Dexamethasone (Dexamethasone 10 Mg/Ml Vial) 10 mg IV NOW ONE Stop: 08/10/23 15:30 Last Admin: 08/10/23 15:38 Dose: 10 mg Documented By: BB Diazepam (Diazepam 10 Mg/2 Ml Syringe) 2 mg IV NOW ONE Stop: 08/10/23 14:24 Last Admin: 08/10/23 15:05 Dose: 2 mg Documented By: MICHAELLE Hydromorphone HCl (Hydromorphone 1 Mg Inj) 1 mg IV NOW ONE Stop: 08/10/23 14:12 Last Admin: 08/10/23 14:13 Dose: 1 mg Documented By: LAUREN Sodium Chloride (Normal Saline 0.9%) 1,000 mls @ 1,000 mls/hr IV BOLUS ONE Stop: 08/10/23 14:31 Last Infusion: 08/10/23 16:45 Dose: Infused Documented By: Admin: 08/10/23 13:41 Dose: 1,000 mls/hr Documented By: NATALIIA Ceftriaxone Sodium 2,000 mg/ (Sodium Chloride) 100 mls @ 200 mls/hr IV NOW ONE Stop: 08/10/23 15:03 Last Infusion: 08/10/23 15:39 Dose: Infused Documented By: Admin: 08/10/23 15:12 Dose: 200 mls/hr Documented By: BB Acyclovir 820 mg/ Dextrose 250 mls @ 250 mls/hr IV NOW ONE Stop: 08/10/23 15:03 Last Infusion: 08/10/23 16:45 Dose: Infused Documented By: Admin: 08/10/23 15:31 Dose: 250 mls/hr Documented By: BB Sodium Chloride (Normal Saline 0.9%) 1,000 mls @ 1,000 mls/hr IV BOLUS ONE Stop: 08/10/23 16:03 Last Infusion: 08/10/23 15:24 Dose: Infused Documented By: Admin: 08/10/23 15:12 Dose: 1,000 mls/hr Documented By: BB Ampicillin Sodium 2,000 mg/ (Sodium Chloride) 100 mls @ 200 mls/hr IV NOW ONE Stop: 08/10/23 15:32 Last Infusion: 08/10/23 16:45 Dose: Infused Documented By: Admin: 08/10/23 15:51 Dose: 200 mls/hr Documented By: BB Vancomycin HCl/Dextrose (Vancomycin) 2,000 mg in 400 mls @ 200 mls/hr IV NOW ONE Stop: 08/10/23 17:59 Last Admin: 08/10/23 17:09 Dose: 200 mls/hr Documented By: BB Vancomycin HCl 1,750 mg/ (Sodium Chloride) 500 mls @ 250 mls/hr IV Q24H ISA Lorazepam (Lorazepam 2 Mg/Ml Inj) 0.5 mg IV NOW ONE Stop: 08/10/23 14:01 Last Admin: 08/10/23 14:14 Dose: 0.5 mg Documented By: LAUREN Metoclopramide HCl (Metoclopramide 10 Mg/2 Ml Inj) 10 mg IV NOW ONE Stop: 08/10/23 14:19 Last Admin: 08/10/23 14:29 Dose: 10 mg Documented By: BB Morphine Sulfate (Morphine 4 Mg/Ml Inj) 4 mg IV NOW ONE Stop: 08/10/23 13:33 Last Admin: 08/10/23 13:42 Dose: 4 mg Documented By: BS Morphine Sulfate (Morphine 4 Mg/Ml Inj) 4 mg IV Q3H PRN PRN Reason: Pain, Severe (7-10) Ondansetron HCl (Ondansetron 4 Mg/2 Ml Inj) 4 mg IV NOW ONE Stop: 08/10/23 13:33 Last Admin: 08/10/23 13:41 Dose: 4 mg Documented By: BS Ondansetron HCl (Ondansetron 4 Mg/2 Ml Inj) 4 mg IV NOW ONE Stop: 08/10/23 14:01 Last Admin: 08/10/23 14:05 Dose: 4 mg Documented By: BB Pantoprazole Sodium (Pantoprazole 40 Mg Vial) 40 mg IV NOW ONE Stop: 08/10/23 14:19 Last Admin: 08/10/23 14:29 Dose: 40 mg Documented By: MICHAELLE Vancomycin HCl (Vancomycin Per Pharmacy) 1 request MIS NOW PRN PRN Reason: . Last Admin: 08/10/23 17:09 Dose: 1 request Documented By: MICHAELLE Vancomycin HCl (Vancomycin Trough) 1 request [facility] 1630 ONE Stop: 08/13/23 16:31 Vancomycin HCl (Vancomycin Peak) 1 request MIS 1999 ONE Stop: 08/13/23 20:01 Vital Signs Vital signs: Vital Signs - 8 hr 08/10/23 13:23 08/10/23 13:26 08/10/23 13:26 Temperature Pulse Rate 85 86 Respiratory Rate Blood Pressure 141/63 H Pulse Oximetry 96 97 Oxygen Delivery Method 08/10/23 13:30 08/10/23 13:31 08/10/23 13:33 Temperature 98 F Pulse Rate 84 78 83 Respiratory Rate 17 Blood Pressure 132/68 Pulse Oximetry 97 98 97 Oxygen Delivery Method Room Air 08/10/23 13:33 08/10/23 13:51 08/10/23 13:51 Temperature Pulse Rate 81 Respiratory Rate 17 Blood Pressure 139/100 H 142/63 H Pulse Oximetry 98 Oxygen Delivery Method 08/10/23 14:14 08/10/23 14:14 08/10/23 14:30 Temperature Pulse Rate 81 78 Respiratory Rate 19 Blood Pressure 160/120 H Pulse Oximetry 93 94 Oxygen Delivery Method 08/10/23 15:00 08/10/23 15:23 08/10/23 15:23 Temperature Pulse Rate 81 83 Respiratory Rate 36 H 14 Blood Pressure 127/58 L Pulse Oximetry 95 95 Oxygen Delivery Method 08/10/23 15:30 08/10/23 15:30 08/10/23 16:00 Temperature Pulse Rate 83 81 Respiratory Rate 14 15 Blood Pressure 125/60 Pulse Oximetry 97 95 Oxygen Delivery Method MDM - Headache Lab Data 08/10/23 13:35 08/10/23 13:35 Labs: Lab Results 08/10/23 08/10/23 08/10/23 Range/Units 13:35 14:00 15:03 WBC 18.6 H (4.5-11.0) X10^3/uL RBC 4.06 (4.0-5.2) X10^6/uL Hgb 13.0 (12.0-16.0) g/dL Hct 38.5 (36-46) % MCV 94.8 (80-100) fL MCH 32.0 (26-34) PG MCHC 33.8 (30-36) % RDW 13.7 (11.6-14.8) % Plt Count 224 (150-400) X10^3/uL Neut % (Auto) 78.5 H (50-75) % Lymph % (Auto) 13.2 L (25-40) % Russell % (Auto) 6.9 (3-14) % Eos % (Auto) 0.9 L (2-4) % Baso % (Auto) 0.5 (0-2) % Neut # (Auto) 83937 H (1835-5400) /uL Lymph # (Auto) 2500 (9308-2978) /uL Russell # (Auto) 1300 H (0-900) /uL Eos # (Auto) 200 (0-450) /uL Baso # (Auto) 100 (0-100) /uL Sodium 135 L (137-145) mmol/L Potassium 3.2 L (3.4-5.1) mmol/L Chloride 99 (98-107) mmol/L Carbon Dioxide 25 (22-32) mmol/L BUN 13 (7-17) mg/dL Creatinine 0.66 (0.52-1.04) mg/dL Estimated GFR > 60 (>60) mL/min BUN/Creatinine Ratio 19.7 (6-22) Glucose 130 H (80-110) mg/dL Lactate 2.5 H (0.7-2.1) mmol/L Calcium 9.6 (8.4-10.2) mg/dL Total Bilirubin 0.8 (0.2-1.3) mg/dL AST 26 (14-36) IU/L ALT 42 H (<35) IU/L Alkaline Phosphatase 101 (38-126) U/L Total Protein 7.5 (6.3-8.2) g/dL Albumin 4.1 (3.5-5.0) g/dL Globulin 3.4 (1.7-4.1) g/dL Albumin/Globulin Ratio 1.2 (1.0-2.8) Procalcitonin 6.92 H (<0.5) ng/mL CSF Tube Number 3 CSF Volume 1.0 ml CSF Appearance Clear (Clear) CSF Color Colorless (Colorless) CSF WBC 112.5 H (0-5) MONO/uL CSF RBC 0 RBC /uL CSF Mononuclear WBCs 33 % CSF Polynuclear WBCs 67 % CSF Glucose 59 (40-70) mg/dL CSF Total Protein 75 H (12-60) mg/dL CSF C.neoform/gat PCR Not detected (Not Detect) CSF CMV DNA (PCR) Not detected (Not Detect) CSF Enterovirus (PCR) Not detected (Not Detect) CSF E. coli (PCR) Not detected (Not Detect) CSF H. influenzae (PCR) Not detected (Not Detect) CSF HSV I (PCR) Not detected (Not Detect) CSF HSV II (PCR) Not detected (Not Detect) CSF HHV 6 (PCR) Not detected (Not Detect) CSF L.monocytogenes PCR Not detected (Not Detect) CSF N. meningitidis PCR Not detected (Not Detect) CSF Parechovirus (PCR) Not detected (Not Detect) CSF S. agalactiae (PCR) Not detected (Not Detect) CSF S. pneumoniae (PCR) Not detected (Not Detect) CSF VZV (PCR) Not detected (Not Detecte) Chlamy pneumoniae PCR Not detected (Not Detect) Adenovirus (PCR) Not detected (Not Detect) B.parapertussis DNA PCR Not detected (Not Detecte) Coronavirus OC43 (PCR) Not detected (Not Detect) Coronavirus HKU1 (PCR) Not detected (Not Detect) Coronavirus 229E (PCR) Not detected (Not Detect) SARS-CoV-2 (PCR) Not detected (Not Detecte) Coronavirus NL63 (PCR) Not detected (Not Detect) Human Metapneumovir PCR Not detected (Not Detect) Influenza Type A (PCR) Not detected (Not Detect) Influenza Type B (PCR) Not detected (Not Detect) M. pneumoniae (PCR) Not detected (Not Detect) Parainfluenza 1 (PCR) Not detected (Not Detect) Parainfluenza 2 (PCR) Not detected (Not Detect) Parainfluenza 3 (PCR) Not detected (Not Detect) Parainfluenza 4 (PCR) Not detected (Not Detect) RSV (PCR) Not detected (Not Detect) Entero/Rhino (PCR) Not detected (Not Detect) 08/10/23 Range/Units 15:43 WBC (4.5-11.0) X10^3/uL RBC (4.0-5.2) X10^6/uL Hgb (12.0-16.0) g/dL Hct (36-46) % MCV (80-100) fL MCH (26-34) PG MCHC (30-36) % RDW (11.6-14.8) % Plt Count (150-400) X10^3/uL Neut % (Auto) (50-75) % Lymph % (Auto) (25-40) % Russell % (Auto) (3-14) % Eos % (Auto) (2-4) % Baso % (Auto) (0-2) % Neut # (Auto) (7715-7984) /uL Lymph # (Auto) (8611-8590) /uL Russell # (Auto) (0-900) /uL Eos # (Auto) (0-450) /uL Baso # (Auto) (0-100) /uL Sodium (137-145) mmol/L Potassium (3.4-5.1) mmol/L Chloride (98-107) mmol/L Carbon Dioxide (22-32) mmol/L BUN (7-17) mg/dL Creatinine (0.52-1.04) mg/dL Estimated GFR (>60) mL/min BUN/Creatinine Ratio (6-22) Glucose (80-110) mg/dL Lactate 1.5 (0.7-2.1) mmol/L Calcium (8.4-10.2) mg/dL Total Bilirubin (0.2-1.3) mg/dL AST (14-36) IU/L ALT (<35) IU/L Alkaline Phosphatase (38-126) U/L Total Protein (6.3-8.2) g/dL Albumin (3.5-5.0) g/dL Globulin (1.7-4.1) g/dL Albumin/Globulin Ratio (1.0-2.8) Procalcitonin (<0.5) ng/mL CSF Tube Number CSF Volume CSF Appearance (Clear) CSF Color (Colorless) CSF WBC (0-5) MONO/uL CSF RBC RBC /uL CSF Mononuclear WBCs % CSF Polynuclear WBCs % CSF Glucose (40-70) mg/dL CSF Total Protein (12-60) mg/dL CSF C.neoform/gat PCR (Not Detect) CSF CMV DNA (PCR) (Not Detect) CSF Enterovirus (PCR) (Not Detect) CSF E. coli (PCR) (Not Detect) CSF H. influenzae (PCR) (Not Detect) CSF HSV I (PCR) (Not Detect) CSF HSV II (PCR) (Not Detect) CSF HHV 6 (PCR) (Not Detect) CSF L.monocytogenes PCR (Not Detect) CSF N. meningitidis PCR (Not Detect) CSF Parechovirus (PCR) (Not Detect) CSF S. agalactiae (PCR) (Not Detect) CSF S. pneumoniae (PCR) (Not Detect) CSF VZV (PCR) (Not Detecte) Chlamy pneumoniae PCR (Not Detect) Adenovirus (PCR) (Not Detect) B.parapertussis DNA PCR (Not Detecte) Coronavirus OC43 (PCR) (Not Detect) Coronavirus HKU1 (PCR) (Not Detect) Coronavirus 229E (PCR) (Not Detect) SARS-CoV-2 (PCR) (Not Detecte) Coronavirus NL63 (PCR) (Not Detect) Human Metapneumovir PCR (Not Detect) Influenza Type A (PCR) (Not Detect) Influenza Type B (PCR) (Not Detect) M. pneumoniae (PCR) (Not Detect) Parainfluenza 1 (PCR) (Not Detect) Parainfluenza 2 (PCR) (Not Detect) Parainfluenza 3 (PCR) (Not Detect) Parainfluenza 4 (PCR) (Not Detect) RSV (PCR) (Not Detect) Entero/Rhino (PCR) (Not Detect) Imaging Data CT scan - head: Radiologist's Impression: PROCEDURE: CT HEAD/BRAIN WO CON INDICATIONS: severe headache.. TECHNIQUE: Noncontrast 4.5 mm thick angled axial sections acquired from the foramen magnum to the vertex, with coronal and sagittal reformats. For radiation dose reduction, the following was used: automated exposure control, adjustment of mA and/or kV according to patient size. COMPARISON: [facility], CT, CT HEAD/BRAIN WO CON, 08/07/2023, 2:30. FINDINGS: Image quality: Excellent. CSF spaces: Basal cisterns are patent. No extra-axial fluid collections. Ventricles are normal in size and shape. Brain: No midline shift. No intracranial masses or hemorrhage. Knapp-white matter interface is normal. Subtle white matter periventricular hypodensities consistent with chronic microvascular ischemic disease. Skull and face: Calvarium and visualized facial bones are intact, without suspicious lesions. Hyperostosis frontalis. Sinuses: Visualized sinuses and mastoids are clear. IMPRESSION: No acute intracranial pathology. Dictated by: Edmond Carvalho M.D. on 08/10/2023 at 13:37 ECG Data Interpretation: Sinus rhythm rate 78 HI interval 144 QRS 86 QTC 450 MDM Narrative Medical decision making narrative: Patient is 72-year-old female presents today with severe headache nausea vomiting. She had a fever 2 days ago with a temperature of 101? in the ED. ultimately got better with pain medications. Presents again today no focal deficits. Head CT is negative for intracranial hemorrhage. Vomiting very difficult to control requires multiple medications benzos do seem to help the most. Concern for meningitis with recent fever and severe headache. She is no focal deficits but is very uncomfortable and in severe pain. Blood work reviewed leukocytosis of 18 sodium 135 potassium 3.2 lactate is 2.5 improved to 1.5 with IV fluids procalcitonin is 6.92 Lumbar puncture is clear however spinal fluid shows WBC of 112 with elevated protein 75 possible viral meningitis. However meningitis panel is negative. She was treated for bacterial meningitis nonetheless though her symptoms have been ongoing for about [address] week[address] At this time Dr. Miller accepts patient for observation. Discharge Plan Departure Patient Disposition: Admitted as Observation Clinical Impression: Meningitis, viral, Persistent vomiting Admit Date/Time: 08/10/23 16:29 Admit Provider: Radha Miller
[2023-08-10] MEDS: SODIUM CHLORIDE 0.9% 1,000 ML 1000 ML IV ×2 (13:41→15:12)
[2023-08-10] MEDS: ONDANSETRON 4 MG/2 ML INJ IV ×3 (13:41→23:54)
[2023-08-10] MEDS: MORPHINE 4 MG/ML INJ IV (13:42)
[2023-08-10 13:45] LABS: Add Manual Diff / Slide Review NO; Basophils Absolute Auto 100 /uL (0-100); Basophils Percent Auto 0.5 % (0-2); Eosinophils Absolute Auto 200 /uL (0-450); Eosinophils Percent Auto 0.9 % (2-4); Hematocrit 38.5 % (36-46); Lymphocytes Absolute Auto 2500 /uL (1100-4500); Lymphocytes Percent Auto 13.2 % (25-40); Mean Corpuscular HGB Conc 33.8 % (30-36); Mean Corpuscular Volume 94.8 fL (80-100); Monocytes Absolute Auto 1300 /uL (0-900); Monocytes Percent Auto 6.9 % (3-14); Neutrophils Absolute Auto 14600 /uL (1500-7000); Neutrophils Percent Auto 78.5 % (50-75); Platelet Count 224 X10^3/uL (150-400); Red Blood Cell Count 4.06 X10^6/uL (4.0-5.2); Red Cell Distribution Width 13.7 % (11.6-14.8); White Blood Cell Count 18.6 X10^3/uL (4.5-11.0)
[2023-08-10 13:56] LABS: Lactate (Lactic Acid) 2.5 mmol/L (0.7-2.1)
[2023-08-10 13:57] LABS: Alanine Aminotransferase 42 IU/L (<35); Albumin 4.1 g/dL (3.5-5.0); Albumin Globulin Ratio 1.2 (1.0-2.8); Alkaline Phosphatase 101 U/L (38-126); Aspartate Aminotransferase 26 IU/L (14-36); BUN Creatinine Ratio 19.7 (6-22); Bilirubin Total 0.8 mg/dL (0.2-1.3); Blood Urea Nitrogen 13 mg/dL (7-17); Calcium 9.6 mg/dL (8.4-10.2); Carbon Dioxide 25 mmol/L (22-32); Chloride 99 mmol/L (98-107); Estimated Glomerular Filt Rate > 60 mL/min (>60); Globulin 3.4 g/dL (1.7-4.1); Glucose 130 mg/dL (80-110); HEMOLYSIS < 15 (0-50); Potassium 3.2 mmol/L (3.4-5.1); Sodium 135 mmol/L (137-145); Total Protein 7.5 g/dL (6.3-8.2)
[2023-08-10] MEDS: HYDROMORPHONE 1 MG INJ IV (14:13)
[2023-08-10 14:14] LABS: Procalcitonin 6.92 ng/mL (<0.5)
[2023-08-10] MEDS: LORazepam 2 MG/ML INJ 0.5 MG IV (14:14)
[2023-08-10] MEDS: PANTOPRAZOLE 40 MG VIAL IV (14:29)
[2023-08-10] MEDS: METOCLOPRAMIDE 10 MG/2 ML INJ IV (14:29)
[2023-08-10 14:33] LABS: Adenovirus Not Detected (Not Detect); B. parapertussis Not Detected (Not Detecte); Bordetella pertussis Not Detected (Not Detect); Chlamydophila pneumoniae Not Detected (Not Detect); Coronavirus 229E Not Detected (Not Detect); Coronavirus HKU1 Not Detected (Not Detect); Coronavirus NL 63 Not Detected (Not Detect); Coronavirus OC43 Not Detected (Not Detect); Human Metapneumovirus Not Detected (Not Detect); Human Rhinovirus/Enterovirus Not Detected (Not Detect); Influenza A Not Detected (Not Detect); Influenza B Not Detected (Not Detect); Mycoplasma pneumoniae Not Detected (Not Detect); Parainfluenza Virus 1 Not Detected (Not Detect); Parainfluenza Virus 2 Not Detected (Not Detect); Parainfluenza Virus 3 Not Detected (Not Detect); Parainfluenza Virus 4 Not Detected (Not Detect); Respiratory Syncytial Virus Not Detected (Not Detect); SARS- CoV-2 Not Detected (Not Detecte)
[2023-08-10] MEDS: diazePAM 10 MG/2 ML SYRINGE 2 MG IV (15:05)
[2023-08-10] MEDS: cefTRIAXone 2,000 MG in SODIUM CHLORIDE 0.9% 100 ML 200 MG IV ×2 (15:12→20:15)
[2023-08-10 15:22] LABS: Reflexed Lactate in 2 Hours Y
[2023-08-10] MEDS: DEXAMETHASONE 10 MG/ML VIAL IV (15:38)
[2023-08-10] MEDS: AMPICILLIN 2,000 MG in SODIUM CHLORIDE 0.9% 100 ML 200 MG IV ×3 (15:51→23:53)
[2023-08-10 16:00] LABS: Glucose CSF 59 mg/dL (40-70); Total Protein CSF 75 mg/dL (12-60)
[2023-08-10 16:02] LABS: CSF Tube Number 3
[2023-08-10 16:03] LABS: Appearance CSF Clear (Clear); CSF Tube Volume 1.0 mL; Color CSF Colorless (Colorless)
[2023-08-10 16:04] LABS: Red Blood Cell CSF 0 RBC /uL; White Blood Cell CSF 112.5 MONO/uL (0-5)
[2023-08-10 16:10] LABS: Lactate 2HR (Lactic Acid Rflx) 1.5 mmol/L (0.7-2.1)
[2023-08-10 16:11] LABS: Mononuclear WBC CSF 33 %; Polynuclear WBC CSF 67 %
[2023-08-10 16:54] LABS: Cryptococcus neoformans/gattii Not Detected (Not Detect); Enterovirus Not Detected (Not Detect); Escherichia coli K1 Not Detected (Not Detect); Haemophilus influenzae Not Detected (Not Detect); Herpes simplex virus 1 Not Detected (Not Detect); Herpes simplex virus 2 Not Detected (Not Detect); Human herpesvirus 6 Not Detected (Not Detect); Human parechovirus Not Detected (Not Detect); Listeria monocytogenes Not Detected (Not Detect); Neisseria meningitidis Not Detected (Not Detect); Streptococcus agalactiae Not Detected (Not Detect); Streptococcus pneumoniae Not Detected (Not Detect); Varicella Zoster Virus Not Detected (Not Detecte)
[2023-08-10] MEDS: VANCOMYCIN PER PHARMACY 1 REQUEST MISC (17:09)
[2023-08-10] MEDS: VANCOMYCIN 2,000 MG/400 ML PIGGYBACK 200 MG IV (17:09)
[2023-08-10] MEDS: PROCHLORPERAZINE 10 MG/2 ML VIAL 5 MG IV (19:22)
[2023-08-10] MEDS: SODIUM CHLORIDE 0.45% 1,000 ML 100 ML IV (19:24)
[2023-08-10] MEDS: MORPHINE 2 MG/ML INJ IV (21:18)
[2023-08-10] MEDS: METOPROLOL IR 50 MG TABLET PO (21:19)
[2023-08-10] MEDS: GABAPENTIN 300 MG CAPSULE 600 MG PO (21:19)
[2023-08-10] MEDS: INSULIN LISPRO 100 UNIT/ML 3ML VIAL SUBCUT (21:20)
--- NOTE | 2023-08-10 23:14 | PM.HP.1 ---
History of Present Illness History of Present Illness Date Patient Seen: 08/10/23 Time Patient Seen: 23:14 Chief complaint: vomiting/ headache Narrative: The pt is a 72 yo female who developed severe FORBES - bi-temporal radiating to the neck with nausea and vomiting 4 days ago. She was feeling better on Saturday and went to the [employer] and drank some wine and whiskey to celebrate. The FORBES returned Satdand and since reports she has been unable to tolerate any food or liquid. She does state that she has had subjective fevers and chills. Several years ago she had similar symptoms and was dx with meningitis. The pt was in the ER 3 days ago for this headache and was sent home with symptomatic meds but due to worsening symptoms she came back to the ER. In the ER, a LP was done with CSF results reviewed. THe pt does have a hx of Migraine headache which has become more frequent in occurrences. No photo or phonophobia, no recent illness, PFSH Medical History (Updated 08/10/23 @ 18:46 by Peyton Olivares DO) Pre-diabetes Hypertension Social History (Updated 02/26/19 @ 05:33 by Merary Hodge DO) marital status: household members: spouse Smoking Status: Never smoker alcohol intake: current substance use type: does not use Meds Home Medications and Allergies Home Medications Medication Instructions Recorded Confirmed Type aspirin 81 mg tablet,delayed 81 mg PO DAILY ##0 05/20/16 History release albuterol sulfate 90 mcg/actuation 02/26/19 History aerosol inhaler escitalopram oxalate 20 mg tablet 20 mg PO DAILY 02/26/19 02/26/19 History hydrocodone 5 mg-acetaminophen 325 1 tab PO Q4-6H PRN pain #14 tabs 02/26/19 Rx mg tablet ([place]) ketorolac 0.5 % eye drops 1 drp EYE-RIGHT [id number] 02/26/19 02/26/19 History losartan 100 1 tab PO DAILY 02/26/19 02/26/19 History mg-hydrochlorothiazide 25 mg tablet metformin 500 mg tablet 500 mg PO BID 02/26/19 02/26/19 History metoprolol tartrate 50 mg tablet 50 mg PO BID 02/26/19 02/26/19 History ondansetron 4 mg disintegrating 4 mg PO Q6-8H PRN nausea and 02/26/19 Rx tablet vomiting #10 tabs pravastatin 20 mg tablet 20 mg PO BEDTIME 02/26/19 02/26/19 History sodium,potassium,mag sulfates 17.5 See Rx Instructions PO .COMPLEX 08/09/23 Rx gram-3.13 gram-1.6 gram oral soln #354 mL (Suprep Bowel Prep Kit) amlodipine 5 mg tablet 5 mg PO DAILY 08/10/23 08/10/23 History amlodipine 5 mg tablet 5 mg PO DAILY 08/10/23 08/10/23 History amlodipine 5 mg tablet 5 mg PO DAILY 08/10/23 08/10/23 History atorvastatin 20 mg tablet 20 mg PO DAILY 08/10/23 08/10/23 History gabapentin 300 mg capsule 600 mg PO BID 08/10/23 08/10/23 History hydrochlorothiazide 25 mg tablet 25 mg PO QAM 08/10/23 08/10/23 History losartan 100 mg tablet 100 mg PO DAILY blood pressure 08/10/23 08/10/23 History metformin 500 mg tablet 500 mg PO BID diabetes mellitus 08/10/23 08/10/23 History metoprolol tartrate 50 mg tablet 50 mg PO BID 08/10/23 08/10/23 History sodium,potassium,mag sulfates 17.5 PO 08/10/23 History gram-3.13 gram-1.6 gram oral soln venlafaxine 37.5 mg tablet 37.5 mg PO DAILY 08/10/23 08/10/23 History Allergies Allergy/AdvReac Type Severity Reaction Status Date / Time No Known Drug Allergies Allergy Verified 08/10/23 13:37 Exam Vital Signs (past 8 hours): - 08/10/23 15:23 08/10/23 15:23 08/10/23 15:30 Temperature Pulse Rate 83 Respiratory Rate 14 Blood Pressure 127/58 L 125/60 Pulse Oximetry 95 Oxygen Flow Rate 08/10/23 15:30 08/10/23 16:00 08/10/23 16:30 Temperature Pulse Rate 83 81 84 Respiratory Rate 14 15 15 Blood Pressure 160/70 H Pulse Oximetry 97 95 95 Oxygen Flow Rate 08/10/23 16:45 08/10/23 16:45 08/10/23 17:00 Temperature Pulse Rate 90 87 Respiratory Rate 18 20 Blood Pressure 163/71 H Pulse Oximetry 95 95 Oxygen Flow Rate 08/10/23 17:00 08/10/23 18:00 08/10/23 19:22 Temperature 97.6 F Pulse Rate 87 87 Respiratory Rate 16 Blood Pressure 145/63 H 138/66 138/66 Pulse Oximetry 94 Oxygen Flow Rate 0 08/10/23 20:00 Temperature 97.6 F Pulse Rate 87 Respiratory Rate 16 Blood Pressure 138/66 Pulse Oximetry 94 Oxygen Flow Rate 0 Oxygen Delivery Method Room Air Oxygen Flow Rate 0 Const General: cooperative, healthy appearing, comfortable and well developed Eyes General: appearance normal, both eyes and all related structures Neck Neck: normal visual inspection and no meningeal signs Resp Auscultation: clear to auscultation bilaterally Cardio Rate: regular rate Rhythm: regular rhythm GI Auscultation: normal bowel sounds Neuro General: patient alert, patient awake, patient oriented x3, moves all extremities and other Other: able to sit up in bed, walk to the bathroom without difficulty Objective Labs 08/10/23 13:35 08/10/23 13:35 Labs: Laboratory Results - last 24 hr 08/10/23 08/10/23 08/10/23 13:35 14:00 15:03 WBC 18.6 H RBC 4.06 Hgb 13.0 Hct 38.5 MCV 94.8 MCH 32.0 MCHC 33.8 RDW 13.7 Plt Count 224 Neut % (Auto) 78.5 H Lymph % (Auto) 13.2 L [place] % (Auto) 6.9 Eos % (Auto) 0.9 L Baso % (Auto) 0.5 Neut # (Auto) 03694 H Lymph # (Auto) 2500 [place] # (Auto) 1300 H Eos # (Auto) 200 Baso # (Auto) 100 Sodium 135 L Potassium 3.2 L Chloride 99 Carbon Dioxide 25 BUN 13 Creatinine 0.66 Estimated GFR > 60 BUN/Creatinine Ratio 19.7 Glucose 130 H Lactate 2.5 H Calcium 9.6 Total Bilirubin 0.8 AST 26 ALT 42 H Alkaline Phosphatase 101 Total Protein 7.5 Albumin 4.1 Globulin 3.4 Albumin/Globulin Ratio 1.2 Procalcitonin 6.92 H CSF Tube Number 3 CSF Volume 1.0 ml CSF Appearance Clear CSF Color Colorless CSF WBC 112.5 H CSF RBC 0 CSF Mononuclear WBCs 33 CSF Polynuclear WBCs 67 CSF Glucose 59 CSF Total Protein 75 H CSF C.neoform/gat PCR Not detected CSF CMV DNA (PCR) Not detected CSF Enterovirus (PCR) Not detected CSF E. coli (PCR) Not detected CSF H. influenzae (PCR) Not detected CSF HSV I (PCR) Not detected CSF HSV II (PCR) Not detected CSF HHV 6 (PCR) Not detected CSF L.monocytogenes PCR Not detected CSF N. meningitidis PCR Not detected CSF Parechovirus (PCR) Not detected CSF S. agalactiae (PCR) Not detected CSF S. pneumoniae (PCR) Not detected CSF VZV (PCR) Not detected Chlamy pneumoniae PCR Not detected Adenovirus (PCR) Not detected B.parapertussis DNA PCR Not detected Coronavirus OC43 (PCR) Not detected Coronavirus HKU1 (PCR) Not detected Coronavirus 229E (PCR) Not detected SARS-CoV-2 (PCR) Not detected Coronavirus NL63 (PCR) Not detected Human Metapneumovir PCR Not detected Influenza Type A (PCR) Not detected Influenza Type B (PCR) Not detected M. pneumoniae (PCR) Not detected Parainfluenza 1 (PCR) Not detected Parainfluenza 2 (PCR) Not detected Parainfluenza 3 (PCR) Not detected Parainfluenza 4 (PCR) Not detected RSV (PCR) Not detected Entero/Rhino (PCR) Not detected 08/10/23 15:43 WBC RBC Hgb Hct MCV MCH MCHC RDW Plt Count Neut % (Auto) Lymph % (Auto) [place] % (Auto) Eos % (Auto) Baso % (Auto) Neut # (Auto) Lymph # (Auto) [place] # (Auto) Eos # (Auto) Baso # (Auto) Sodium Potassium Chloride Carbon Dioxide BUN Creatinine Estimated GFR BUN/Creatinine Ratio Glucose Lactate 1.5 Calcium Total Bilirubin AST ALT Alkaline Phosphatase Total Protein Albumin Globulin Albumin/Globulin Ratio Procalcitonin CSF Tube Number CSF Volume CSF Appearance CSF Color CSF WBC CSF RBC CSF Mononuclear WBCs CSF Polynuclear WBCs CSF Glucose CSF Total Protein CSF C.neoform/gat PCR CSF CMV DNA (PCR) CSF Enterovirus (PCR) CSF E. coli (PCR) CSF H. influenzae (PCR) CSF HSV I (PCR) CSF HSV II (PCR) CSF HHV 6 (PCR) CSF L.monocytogenes PCR CSF N. meningitidis PCR CSF Parechovirus (PCR) CSF S. agalactiae (PCR) CSF S. pneumoniae (PCR) CSF VZV (PCR) Chlamy pneumoniae PCR Adenovirus (PCR) B.parapertussis DNA PCR Coronavirus OC43 (PCR) Coronavirus HKU1 (PCR) Coronavirus 229E (PCR) SARS-CoV-2 (PCR) Coronavirus NL63 (PCR) Human Metapneumovir PCR Influenza Type A (PCR) Influenza Type B (PCR) M. pneumoniae (PCR) Parainfluenza 1 (PCR) Parainfluenza 2 (PCR) Parainfluenza 3 (PCR) Parainfluenza 4 (PCR) RSV (PCR) Entero/Rhino (PCR) Assessment & Plan Assessment and plan (1) Meningitis, viral: Status: Acute (2) Headache: Status: Acute (3) Persistent vomiting: Status: Acute Plan THe pt appears to be in stable condition at this time, Antiemetics ordered, IVFluifs, pain meds prn, Labs reviewed and CT head, results of the LP and CSF do not show any obvious source, cultures are negative at this time. Will also cover for possible migraine causes of the symptoms also. Continue on empiric abx coverage until cultures are more finalized,
[2023-08-11] MEDS: AMPICILLIN 2,000 MG in SODIUM CHLORIDE 0.9% 100 ML 200 MG IV ×5 (02:23→20:45)
[2023-08-11 02:54] VITALS: BP 128/76; PULSE 70; RESP 17; TEMP 36.7; O2SAT 96
[2023-08-11] MEDS: ONDANSETRON 4 MG/2 ML INJ IV (05:31)
[2023-08-11] MEDS: SODIUM CHLORIDE 0.45% 1,000 ML 100 ML IV (05:33)
[2023-08-11] MEDS: ACETAMINOPHEN 325 MG TABLET 650 MG PO (05:38)
[2023-08-11] MEDS: SUMAtriptan 25 MG TABLET 50 MG PO ×3 (05:38→21:36)
[2023-08-11] MEDS: cefTRIAXone 2,000 MG in SODIUM CHLORIDE 0.9% 100 ML 200 MG IV ×2 (06:02→18:41)
[2023-08-11 07:35] LABS: Add Manual Diff / Slide Review NO; Basophils Absolute Auto 0 /uL (0-100); Basophils Percent Auto 0.2 % (0-2); Eosinophils Absolute Auto 0 /uL (0-450); Hematocrit 32.3 % (36-46); Hemoglobin 11.1 g/dL (12.0-16.0); Lymphocytes Absolute Auto 2200 /uL (1100-4500); Lymphocytes Percent Auto 12.4 % (25-40); Mean Corpuscular HGB Conc 34.3 % (30-36); Mean Corpuscular Hemoglobin 32.2 PG (26-34); Monocytes Absolute Auto 900 /uL (0-900); Monocytes Percent Auto 4.8 % (3-14); Neutrophils Absolute Auto 14600 /uL (1500-7000); Neutrophils Percent Auto 82.6 % (50-75); Platelet Count 222 X10^3/uL (150-400); Red Blood Cell Count 3.43 X10^6/uL (4.0-5.2); Red Cell Distribution Width 13.3 % (11.6-14.8); White Blood Cell Count 17.7 X10^3/uL (4.5-11.0)
[2023-08-11 07:51] LABS: BUN Creatinine Ratio 14.8 (6-22); Blood Urea Nitrogen 9 mg/dL (7-17); Calcium 8.5 mg/dL (8.4-10.2); Carbon Dioxide 26 mmol/L (22-32); Chloride 101 mmol/L (98-107); Estimated Glomerular Filt Rate > 60 mL/min (>60); Glucose 140 mg/dL (80-110); HEMOLYSIS < 15 (0-50); Magnesium 2.2 mg/dL (1.6-2.3); Sodium 134 mmol/L (137-145)
[2023-08-11 07:59] VITALS: BP 175/91; PULSE 101; TEMP 36.5
--- NOTE | 2023-08-11 08:25 | PM.PN.1 ---
Exam Vital Signs (past 8 hours): - 08/11/23 02:54 08/11/23 07:59 Temperature 98.0 F 97.7 F Pulse Rate 70 101 H Respiratory Rate 17 Blood Pressure 128/76 175/91 H Pulse Oximetry 96 Oxygen Flow Rate 0 Oxygen Delivery Method Room Air Oxygen Flow Rate 0 Narrative Exam Narrative: GEN: no acute distress HEENT: moist mucous membranes, PERRL NECK: trachea midline, no JVD CV: regular rate and rhythm, no murmurs PULM: clear bilaterally ABD: soft, nontender, nondistended, no organomegaly EXT: warm and well perfused with no edema NEURO: awake, alert, oriented, no focal deficits Objective Labs 08/11/23 06:25 08/11/23 06:25 Labs: Laboratory Results - last 24 hr 08/10/23 08/10/23 08/10/23 13:35 14:00 15:03 WBC 18.6 H RBC 4.06 Hgb 13.0 Hct 38.5 MCV 94.8 MCH 32.0 MCHC 33.8 RDW 13.7 Plt Count 224 Neut % (Auto) 78.5 H Lymph % (Auto) 13.2 L [place] % (Auto) 6.9 Eos % (Auto) 0.9 L Baso % (Auto) 0.5 Neut # (Auto) 42031 H Lymph # (Auto) 2500 [place] # (Auto) 1300 H Eos # (Auto) 200 Baso # (Auto) 100 Sodium 135 L Potassium 3.2 L Chloride 99 Carbon Dioxide 25 BUN 13 Creatinine 0.66 Estimated GFR > 60 BUN/Creatinine Ratio 19.7 Glucose 130 H Lactate 2.5 H Calcium 9.6 Magnesium Total Bilirubin 0.8 AST 26 ALT 42 H Alkaline Phosphatase 101 Total Protein 7.5 Albumin 4.1 Globulin 3.4 Albumin/Globulin Ratio 1.2 Procalcitonin 6.92 H CSF Tube Number 3 CSF Volume 1.0 ml CSF Appearance Clear CSF Color Colorless CSF WBC 112.5 H CSF RBC 0 CSF Mononuclear WBCs 33 CSF Polynuclear WBCs 67 CSF Glucose 59 CSF Total Protein 75 H CSF C.neoform/gat PCR Not detected CSF CMV DNA (PCR) Not detected CSF Enterovirus (PCR) Not detected CSF E. coli (PCR) Not detected CSF H. influenzae (PCR) Not detected CSF HSV I (PCR) Not detected CSF HSV II (PCR) Not detected CSF HHV 6 (PCR) Not detected CSF L.monocytogenes PCR Not detected CSF N. meningitidis PCR Not detected CSF Parechovirus (PCR) Not detected CSF S. agalactiae (PCR) Not detected CSF S. pneumoniae (PCR) Not detected CSF VZV (PCR) Not detected Chlamy pneumoniae PCR Not detected Adenovirus (PCR) Not detected B.parapertussis DNA PCR Not detected Coronavirus OC43 (PCR) Not detected Coronavirus HKU1 (PCR) Not detected Coronavirus 229E (PCR) Not detected SARS-CoV-2 (PCR) Not detected Coronavirus NL63 (PCR) Not detected Human Metapneumovir PCR Not detected Influenza Type A (PCR) Not detected Influenza Type B (PCR) Not detected M. pneumoniae (PCR) Not detected Parainfluenza 1 (PCR) Not detected Parainfluenza 2 (PCR) Not detected Parainfluenza 3 (PCR) Not detected Parainfluenza 4 (PCR) Not detected RSV (PCR) Not detected Entero/Rhino (PCR) Not detected 08/10/23 08/11/23 15:43 06:25 WBC 17.7 H RBC 3.43 L Hgb 11.1 L Hct 32.3 L MCV 94.0 MCH 32.2 MCHC 34.3 RDW 13.3 Plt Count 222 Neut % (Auto) 82.6 H Lymph % (Auto) 12.4 L [place] % (Auto) 4.8 Eos % (Auto) 0.0 L Baso % (Auto) 0.2 Neut # (Auto) 56830 H Lymph # (Auto) 2200 [place] # (Auto) 900 Eos # (Auto) 0 Baso # (Auto) 0 Sodium 134 L Potassium 4.0 Chloride 101 Carbon Dioxide 26 BUN 9 Creatinine 0.61 Estimated GFR > 60 BUN/Creatinine Ratio 14.8 Glucose 140 H Lactate 1.5 Calcium 8.5 Magnesium 2.2 Total Bilirubin AST ALT Alkaline Phosphatase Total Protein Albumin Globulin Albumin/Globulin Ratio Procalcitonin CSF Tube Number CSF Volume CSF Appearance CSF Color CSF WBC CSF RBC CSF Mononuclear WBCs CSF Polynuclear WBCs CSF Glucose CSF Total Protein CSF C.neoform/gat PCR CSF CMV DNA (PCR) CSF Enterovirus (PCR) CSF E. coli (PCR) CSF H. influenzae (PCR) CSF HSV I (PCR) CSF HSV II (PCR) CSF HHV 6 (PCR) CSF L.monocytogenes PCR CSF N. meningitidis PCR CSF Parechovirus (PCR) CSF S. agalactiae (PCR) CSF S. pneumoniae (PCR) CSF VZV (PCR) Chlamy pneumoniae PCR Adenovirus (PCR) B.parapertussis DNA PCR Coronavirus OC43 (PCR) Coronavirus HKU1 (PCR) Coronavirus 229E (PCR) SARS-CoV-2 (PCR) Coronavirus NL63 (PCR) Human Metapneumovir PCR Influenza Type A (PCR) Influenza Type B (PCR) M. pneumoniae (PCR) Parainfluenza 1 (PCR) Parainfluenza 2 (PCR) Parainfluenza 3 (PCR) Parainfluenza 4 (PCR) RSV (PCR) Entero/Rhino (PCR) PFSH Medical History (Updated 08/10/23 @ 18:46 by Peyton Olivares DO) Pre-diabetes Hypertension Social History (Updated 02/26/19 @ 05:33 by Merary Hodge DO) marital status: household members: spouse Smoking Status: Never smoker alcohol intake: current substance use type: does not use Assessment & Plan Assessment and plan (1) Meningitis, viral: Status: Acute (2) Headache: Status: Acute (3) Persistent vomiting: Status: Acute
[2023-08-11 09:06] LABS: Procalcitonin 22.6 ng/mL (<0.5)
[2023-08-11 09:24] VITALS: BP 175/91; PULSE 101
[2023-08-11] MEDS: AMLODIPINE 5 MG TABLET PO (09:24)
[2023-08-11] MEDS: hydroCHLOROthiazide 25 MG TABLET PO (09:24)
[2023-08-11] MEDS: LOSARTAN 50 MG TABLET 100 MG PO (09:24)
[2023-08-11] MEDS: METOPROLOL IR 50 MG TABLET PO ×2 (09:24→20:00)
[2023-08-11] MEDS: ENOXAPARIN 40 MG/0.4 ML SYRINGE SUBCUT (09:24)
[2023-08-11] MEDS: GABAPENTIN 300 MG CAPSULE 600 MG PO ×2 (09:24→20:00)
[2023-08-11] MEDS: INSULIN LISPRO 100 UNIT/ML 3ML VIAL SUBCUT ×2 (09:25→12:03)
[2023-08-11 12:15] VITALS: BP 153/68; PULSE 78; RESP 16; TEMP 36.9
--- NOTE | 2023-08-11 12:46 | P.PN_ITS ---
Subjective Subjective Date Patient Seen: 08/11/23 Interval history: Pt admitted with acute meningitis. Has GPC in CSF. Headache and neck pain are definitely improving. Exam Vital Signs (past 8 hours): - 08/11/23 07:59 08/11/23 09:24 Temperature 97.7 F Pulse Rate 101 H 101 H Blood Pressure 175/91 H 175/91 H Oxygen Delivery Method Room Air Oxygen Flow Rate 0 Narrative Exam Narrative: Gen: alert, oriented, NAD Lungs: clear CV: regular, no murmur Ext: no edema Neuro: normal speech, thought processes Objective Labs 08/11/23 06:25 08/11/23 06:25 Labs: Laboratory Results - last 24 hr 08/10/23 08/10/23 08/10/23 13:35 14:00 15:03 WBC 18.6 H RBC 4.06 Hgb 13.0 Hct 38.5 MCV 94.8 MCH 32.0 MCHC 33.8 RDW 13.7 Plt Count 224 Neut % (Auto) 78.5 H Lymph % (Auto) 13.2 L [place] % (Auto) 6.9 Eos % (Auto) 0.9 L Baso % (Auto) 0.5 Neut # (Auto) 40183 H Lymph # (Auto) 2500 [place] # (Auto) 1300 H Eos # (Auto) 200 Baso # (Auto) 100 Sodium 135 L Potassium 3.2 L Chloride 99 Carbon Dioxide 25 BUN 13 Creatinine 0.66 Estimated GFR > 60 BUN/Creatinine Ratio 19.7 Glucose 130 H Lactate 2.5 H Calcium 9.6 Magnesium Total Bilirubin 0.8 AST 26 ALT 42 H Alkaline Phosphatase 101 Total Protein 7.5 Albumin 4.1 Globulin 3.4 Albumin/Globulin Ratio 1.2 Procalcitonin 6.92 H CSF Tube Number 3 CSF Volume 1.0 ml CSF Appearance Clear CSF Color Colorless CSF WBC 112.5 H CSF RBC 0 CSF Mononuclear WBCs 33 CSF Polynuclear WBCs 67 CSF Glucose 59 CSF Total Protein 75 H CSF C.neoform/gat PCR Not detected CSF CMV DNA (PCR) Not detected CSF Enterovirus (PCR) Not detected CSF E. coli (PCR) Not detected CSF H. influenzae (PCR) Not detected CSF HSV I (PCR) Not detected CSF HSV II (PCR) Not detected CSF HHV 6 (PCR) Not detected CSF L.monocytogenes PCR Not detected CSF N. meningitidis PCR Not detected CSF Parechovirus (PCR) Not detected CSF S. agalactiae (PCR) Not detected CSF S. pneumoniae (PCR) Not detected CSF VZV (PCR) Not detected Chlamy pneumoniae PCR Not detected Adenovirus (PCR) Not detected B.parapertussis DNA PCR Not detected Coronavirus OC43 (PCR) Not detected Coronavirus HKU1 (PCR) Not detected Coronavirus 229E (PCR) Not detected SARS-CoV-2 (PCR) Not detected Coronavirus NL63 (PCR) Not detected Human Metapneumovir PCR Not detected Influenza Type A (PCR) Not detected Influenza Type B (PCR) Not detected M. pneumoniae (PCR) Not detected Parainfluenza 1 (PCR) Not detected Parainfluenza 2 (PCR) Not detected Parainfluenza 3 (PCR) Not detected Parainfluenza 4 (PCR) Not detected RSV (PCR) Not detected Entero/Rhino (PCR) Not detected 08/10/23 08/11/23 08/11/23 15:43 06:25 06:26 WBC 17.7 H RBC 3.43 L Hgb 11.1 L Hct 32.3 L MCV 94.0 MCH 32.2 MCHC 34.3 RDW 13.3 Plt Count 222 Neut % (Auto) 82.6 H Lymph % (Auto) 12.4 L [place] % (Auto) 4.8 Eos % (Auto) 0.0 L Baso % (Auto) 0.2 Neut # (Auto) 70048 H Lymph # (Auto) 2200 [place] # (Auto) 900 Eos # (Auto) 0 Baso # (Auto) 0 Sodium 134 L Potassium 4.0 Chloride 101 Carbon Dioxide 26 BUN 9 Creatinine 0.61 Estimated GFR > 60 BUN/Creatinine Ratio 14.8 Glucose 140 H Lactate 1.5 Calcium 8.5 Magnesium 2.2 Total Bilirubin AST ALT Alkaline Phosphatase Total Protein Albumin Globulin Albumin/Globulin Ratio Procalcitonin 22.6 H CSF Tube Number CSF Volume CSF Appearance CSF Color CSF WBC CSF RBC CSF Mononuclear WBCs CSF Polynuclear WBCs CSF Glucose CSF Total Protein CSF C.neoform/gat PCR CSF CMV DNA (PCR) CSF Enterovirus (PCR) CSF E. coli (PCR) CSF H. influenzae (PCR) CSF HSV I (PCR) CSF HSV II (PCR) CSF HHV 6 (PCR) CSF L.monocytogenes PCR CSF N. meningitidis PCR CSF Parechovirus (PCR) CSF S. agalactiae (PCR) CSF S. pneumoniae (PCR) CSF VZV (PCR) Chlamy pneumoniae PCR Adenovirus (PCR) B.parapertussis DNA PCR Coronavirus OC43 (PCR) Coronavirus HKU1 (PCR) Coronavirus 229E (PCR) SARS-CoV-2 (PCR) Coronavirus NL63 (PCR) Human Metapneumovir PCR Influenza Type A (PCR) Influenza Type B (PCR) M. pneumoniae (PCR) Parainfluenza 1 (PCR) Parainfluenza 2 (PCR) Parainfluenza 3 (PCR) Parainfluenza 4 (PCR) RSV (PCR) Entero/Rhino (PCR) PFSH Medical History (Updated 08/10/23 @ 18:46 by Peyton Olivares DO) Pre-diabetes Hypertension Social History (Updated 02/26/19 @ 05:33 by Merary Hodge DO) marital status: household members: spouse Smoking Status: Never smoker alcohol intake: current substance use type: does not use Assessment & Plan Assessment & Plan narrative: 1. Acute meningitis, bacterial - improving headache/neck pain. CSF 112, prot 75 both sig elevated. Has GPC on CSF gram stain, neg PCR, culture pending. Blood cx neg so far. Cont VAnc, Rocephin, AMP. Trend symptoms, serum WBC and procalcitonin. Will need 10 - 14 days IV abx depending on organism. 2. Hypertension, chronic -cont amlodiopine, losartan, HCTZ per home routine. 3. Hyperlipidemia -cont atorvastatin
[2023-08-11] MEDS: VENLAFAXINE ER 37.5 MG CAP PO (13:50)
--- NOTE | 2023-08-11 17:12 | CM.DANOTE ---
Brief DCP Assessment Note Patient is a 72yo F here will menengitis/headaches PCP Vivien Latham Medicare and Tala MCLEANW reviewed EMR. Per provider, cultures pending. Pt has a fever/migraines. Per RN, pt up and moving/mobile independently in room. Per chart review, pt lives with spouse in [place] independently. Per PN, will need 10-14 days of antibiotics pending on organism. DIRECTOR OF CARDIOLOGY unable to meet with pt today due to triaging needs. Plan: likely home with spouse when medically stable. CM team will continue to follow closely. CM team will follow for arrangement of home IV antibiotics if needed. ORTIZ Almaguer Discharge Planning/Care Management CM Discharge Assessment Start: 08/11/23 17:10 Freq: Status: Active Protocol: Document 08/11/23 17:10 (Rec: 08/11/23 17:11 [id number]) Discharge Planning Assessment Assigned Disposition Clerk ORTIZ Goyal DPOA/Assigned Designee Name Luis Miguel Vasques (spouse) Contact Information [phone] Advance Directives? No History Provided By Medical Record Prior Living Arrangements House Household Members spouse Discharge Plan Home Whiteboard Updated in Patient Room with No name and ext. # of Disposition Clerk Review Status In Process Next Review Type Continued Stay Review
[2023-08-11 18:00] VITALS: BP 155/75; PULSE 86; RESP 18; TEMP 37.3
[2023-08-11] MEDS: VANCOMYCIN 1,750 MG in SODIUM CHLORIDE 0.9% 500 ML 250 MG IV (19:32)
[2023-08-11 20:00] VITALS: BP 160/76; PULSE 75; RESP 16; TEMP 37.1; O2SAT 96
[2023-08-11] MEDS: SENNOSIDES 8.6 MG TABLET 17.2 MG PO (20:00)
[2023-08-11] MEDS: ATORVASTATIN 20 MG TABLET PO (20:45)
[2023-08-12] MEDS: AMPICILLIN 2,000 MG in SODIUM CHLORIDE 0.9% 100 ML 200 MG IV ×6 (00:26→20:57)
[2023-08-12] MEDS: SUMAtriptan 25 MG TABLET 50 MG PO ×4 (00:50→20:55)
[2023-08-12] MEDS: diazePAM 5 MG TABLET PO ×3 (01:03→15:13)
[2023-08-12] MEDS: OXYCODONE IR 5 MG TABLET PO ×3 (01:11→13:53)
[2023-08-12] MEDS: KETOROLAC 30 MG/ML VIAL IV ×3 (02:09→21:00)
[2023-08-12] MEDS: MORPHINE 2 MG/ML INJ IV ×2 (02:22→05:23)
[2023-08-12 03:17] VITALS: BP 150/67; PULSE 70; RESP 18; TEMP 37.1; O2SAT 96
[2023-08-12] MEDS: cefTRIAXone 2,000 MG in SODIUM CHLORIDE 0.9% 100 ML 200 MG IV ×2 (05:32→19:08)
[2023-08-12 06:20] LABS: Add Manual Diff / Slide Review NO; Basophils Absolute Auto 0 /uL (0-100); Basophils Percent Auto 0.3 % (0-2); Eosinophils Absolute Auto 100 /uL (0-450); Eosinophils Percent Auto 0.5 % (2-4); Hematocrit 31.5 % (36-46); Hemoglobin 10.9 g/dL (12.0-16.0); Lymphocytes Absolute Auto 2700 /uL (1100-4500); Lymphocytes Percent Auto 21.2 % (25-40); Mean Corpuscular HGB Conc 34.5 % (30-36); Mean Corpuscular Hemoglobin 32.6 PG (26-34); Mean Corpuscular Volume 94.5 fL (80-100); Monocytes Absolute Auto 1100 /uL (0-900); Monocytes Percent Auto 8.6 % (3-14); Neutrophils Absolute Auto 8900 /uL (1500-7000); Neutrophils Percent Auto 69.4 % (50-75); Platelet Count 252 X10^3/uL (150-400); Red Blood Cell Count 3.33 X10^6/uL (4.0-5.2); Red Cell Distribution Width 13.8 % (11.6-14.8); White Blood Cell Count 12.8 X10^3/uL (4.5-11.0)
[2023-08-12 06:30] LABS: BUN Creatinine Ratio 15.4 (6-22); Blood Urea Nitrogen 10 mg/dL (7-17); Calcium 8.8 mg/dL (8.4-10.2); Carbon Dioxide 25 mmol/L (22-32); Chloride 106 mmol/L (98-107); Estimated Glomerular Filt Rate > 60 mL/min (>60); Glucose 113 mg/dL (80-110); HEMOLYSIS < 15 (0-50); Potassium 3.6 mmol/L (3.4-5.1); Sodium 137 mmol/L (137-145)
[2023-08-12 06:46] LABS: Procalcitonin 15.6 ng/mL (<0.5)
[2023-08-12] MEDS: ONDANSETRON 4 MG/2 ML INJ IV ×2 (07:44→21:06)
[2023-08-12] MEDS: GABAPENTIN 300 MG CAPSULE 600 MG PO ×2 (08:08→20:55)
[2023-08-12] MEDS: AMLODIPINE 5 MG TABLET PO (08:08)
[2023-08-12] MEDS: ENOXAPARIN 40 MG/0.4 ML SYRINGE SUBCUT (08:08)
[2023-08-12] MEDS: METOPROLOL IR 50 MG TABLET PO ×2 (08:09→20:55)
[2023-08-12] MEDS: hydroCHLOROthiazide 25 MG TABLET PO (08:09)
[2023-08-12] MEDS: LOSARTAN 50 MG TABLET 100 MG PO (08:09)
[2023-08-12] MEDS: VENLAFAXINE ER 37.5 MG CAP PO (08:09)
[2023-08-12 08:51] VITALS: BP 165/78; PULSE 81
[2023-08-12] MEDS: METFORMIN HCL 500 MG TABLET PO ×2 (09:55→20:56)
[2023-08-12] MEDS: VALPROIC ACID 1,000 MG in DEXTROSE 5 % IN WATER 50 ML 60 MG IV (12:58)
[2023-08-12] MEDS: ACETAMINOPHEN 325 MG TABLET 650 MG PO (13:54)
--- NOTE | 2023-08-12 15:06 | PM.PN.1 ---
Subjective Subjective Interval history: Patient still having a throbbing headache. Says toradol and abx help some. Says she has never had pain like this with her previous migraines. Exam Vital Signs (past 8 hours): - 08/12/23 08:51 Pulse Rate 81 Blood Pressure 165/78 H Oxygen Delivery Method Room Air Oxygen Flow Rate 0 Narrative Exam Narrative: Gen: alert, oriented, mod distress from pain Lungs: clear CV: regular, no murmur Ext: no edema Neuro: normal speech, thought processes Objective Labs 08/12/23 05:25 08/12/23 05:25 Labs: Laboratory Results - last 24 hr 08/12/23 05:25 WBC 12.8 H RBC 3.33 L Hgb 10.9 L Hct 31.5 L MCV 94.5 MCH 32.6 MCHC 34.5 RDW 13.8 Plt Count 252 Neut % (Auto) 69.4 Lymph % (Auto) 21.2 L [place] % (Auto) 8.6 Eos % (Auto) 0.5 L Baso % (Auto) 0.3 Neut # (Auto) 8900 H Lymph # (Auto) 2700 [place] # (Auto) 1100 H Eos # (Auto) 100 Baso # (Auto) 0 Sodium 137 Potassium 3.6 Chloride 106 Carbon Dioxide 25 BUN 10 Creatinine 0.65 Estimated GFR > 60 BUN/Creatinine Ratio 15.4 Glucose 113 H Hemoglobin A1c 6.0 Calcium 8.8 Procalcitonin 15.6 H PFSH Medical History (Updated 08/10/23 @ 18:46 by Peyton Olivares DO) Pre-diabetes Hypertension Social History (Updated 02/26/19 @ 05:33 by Merary Hodge DO) marital status: household members: spouse Smoking Status: Never smoker alcohol intake: current substance use type: does not use Assessment & Plan Assessment & Plan narrative: 1. Acute meningitis, bacterial - presented with headache/neck pain. CSF 112, prot 75 both sig elevated. Has GPC on CSF gram stain, neg PCR, culture still pending. Blood cx neg at 48 hours so far. Cont Vanc, Rocephin, AMP. Trend symptoms, serum WBC and procalcitonin. Will need 10 - 14 days IV abx depending on organism. PICC ordered. 2. Hypertension, chronic -cont amlodiopine, losartan, HCTZ per home routine. 3. Hyperlipidemia -cont atorvastatin 4. Possible superimposed migraine -patient having throbbing headache -trial 1g depakote IV to ablate migraine Dispo: Pending CSF culture results. Will likely need 2 weeks IV abx.
[2023-08-12 15:20] VITALS: BP 151/69; PULSE 74; RESP 18; TEMP 36.5
[2023-08-12] MEDS: HYDROMORPHONE 1 MG INJ IV ×2 (15:23→20:56)
--- NOTE | 2023-08-12 15:46 | DI.RAD.S_ITS ---
PROCEDURE: XR CHEST FOR PICC 1V INDICATIONS: line placement COMPARISON: [facility], CR, XR CHEST 1V, 08/07/2023, 2:26. FINDINGS: PICC was placed by the intravenous therapy team from the left side. Wire peers within the PICC with tip in the mid SVC. Fluoroscopic spot film demonstrates the tip of PICC projecting to the area of lower SVC. Lung volumes are low, but lungs are clear. No pleural effusion or pneumothorax. Heart and mediastinum are stable. IMPRESSION: Tip of PICC projects to the area of the lower SVC. Wire appears within the PICC with tip in the mid SVC. Correlate with physical exam. Dictated by: Barak Novak M.D. on 08/12/2023 at 16:38 Approved by: Barak Novak M.D. on 08/12/2023 at 16:41
--- NOTE | 2023-08-12 16:01 | CM.DPNOTE ---
DCP Note According to Dr Lora, patient expected to need ongoing IV abx, Estuardo Bonds ID, likely to follow although has not been consulted yet. Once final culture results are in, final abx drug, duration, dosing can be decided upon. PICC likely to be placed this afternoon. Met w/patient at bedside, brief visit as patient in obvious distress, complaining of headache, RN Leslie aware. Reviewed discharge plan and discussed the anticipated need for ongoing IV abx. Further discussed ways to receive IV abx and patient would like a referral to [facility] to check on her home infusion benefit. Spoke w/Lamonte at [facility] about patient and faxed clinical packet for his review. CM team will plan to follow closely for coordination of discharge plan. MURRAY
[2023-08-12 18:00] VITALS: BP 156/78; PULSE 82; RESP 18; TEMP 36.4; O2SAT 94
[2023-08-12] MEDS: VANCOMYCIN 1,750 MG in SODIUM CHLORIDE 0.9% 500 ML 250 MG IV (18:00)
[2023-08-12] MEDS: ATORVASTATIN 20 MG TABLET PO (20:55)
[2023-08-12] MEDS: SENNOSIDES 8.6 MG TABLET 17.2 MG PO (20:55)
--- NOTE | 2023-08-12 22:52 | PC.NURSE ---
PICC line 2119 This RN notified that pt was having bleeding from the PICC line dressing. This RN went to bedside to assess PICC and pt had blood dripping from PICC line dressing. There was coban wrapped once around arm and gauze visible under tegaderm was saturated with blood. IV infusion to line had been stopped prior to this RN assessing site. Coban dressing was removed and saturated gauze removed. notable bleeding coming from PICC line insertion site. Sterile gauze x4 folded and placed to PICC site with coban pressure dressing placed. pts arm elevated on pillows. IV line flushed with saline and able to easily draw back blood. 2139 site reassessed with no visible drainage to gauze. 2219 coban and gauze removed. no visible bleeding. site cleansed with heba-cleanse and alcohol swabs. folded sterile gauze x1 applied with tegaderm over top. Stat lock changed with site cleansed. LUE remains elevated on pillow.
[2023-08-12 23:54] VITALS: BP 122/58; PULSE 74; RESP 18; TEMP 36.5; O2SAT 94
[2023-08-13] MEDS: AMPICILLIN 2,000 MG in SODIUM CHLORIDE 0.9% 100 ML 200 MG IV ×6 (00:50→20:37)
[2023-08-13 04:12] VITALS: BP 123/64; PULSE 73; RESP 18; TEMP 36.5; O2SAT 95
[2023-08-13] MEDS: cefTRIAXone 2,000 MG in SODIUM CHLORIDE 0.9% 100 ML 200 MG IV ×2 (06:13→19:26)
[2023-08-13] MEDS: HYDROMORPHONE 1 MG INJ IV (06:17)
[2023-08-13 06:38] LABS: Add Manual Diff / Slide Review NO; Basophils Absolute Auto 0 /uL (0-100); Basophils Percent Auto 0.2 % (0-2); Eosinophils Absolute Auto 200 /uL (0-450); Eosinophils Percent Auto 1.8 % (2-4); Hematocrit 32.4 % (36-46); Hemoglobin 11.1 g/dL (12.0-16.0); Lymphocytes Absolute Auto 2000 /uL (1100-4500); Lymphocytes Percent Auto 19.7 % (25-40); Mean Corpuscular HGB Conc 34.3 % (30-36); Mean Corpuscular Hemoglobin 32.7 PG (26-34); Mean Corpuscular Volume 95.4 fL (80-100); Monocytes Absolute Auto 1000 /uL (0-900); Monocytes Percent Auto 10.1 % (3-14); Neutrophils Absolute Auto 7100 /uL (1500-7000); Neutrophils Percent Auto 68.2 % (50-75); Platelet Count 282 X10^3/uL (150-400); Red Blood Cell Count 3.39 X10^6/uL (4.0-5.2); Red Cell Distribution Width 13.8 % (11.6-14.8); White Blood Cell Count 10.4 X10^3/uL (4.5-11.0)
[2023-08-13 06:47] LABS: BUN Creatinine Ratio 16.1 (6-22); Blood Urea Nitrogen 10 mg/dL (7-17); Carbon Dioxide 28 mmol/L (22-32); Chloride 100 mmol/L (98-107); Estimated Glomerular Filt Rate > 60 mL/min (>60); Glucose 95 mg/dL (80-110); HEMOLYSIS < 15 (0-50); Potassium 3.9 mmol/L (3.4-5.1); Sodium 137 mmol/L (137-145)
[2023-08-13 07:04] LABS: Procalcitonin 7.22 ng/mL (<0.5)
--- NOTE | 2023-08-13 08:02 | DI.MRI.S_ITS ---
PROCEDURE: MR HEAD/BRAIN WO/W CON INDICATIONS: severe headache, bacterial meningitis TECHNIQUE: Noncontrast axial T1 spin echo, axial T2 fast spin echo, sagittal and axial FLAIR, coronal T2 fast spin echo, axial gradient echo, axial diffusion and ADC through the brain. After the administration of contrast, axial and coronal and sagittal T1 spin echo with fat saturation through the brain. COMPARISON: [facility], CT, CT HEAD/BRAIN WO CON, 08/10/2023, 13:39. FINDINGS: Image quality: Excellent. CSF spaces: Basal cisterns are patent. No extra-axial fluid collections. Ventricles are normal in size and shape. Brain: No midline shift. No intracranial bleeds or masses. No abnormal intracranial enhancement. There is cerebral volume loss for age. There is periventricular white matter chronic small vessel ischemic change. The brainstem appears normal. Diffusion-weighted images demonstrate no acute ischemic insults. No chronic ischemic insults. Normal intravascular flow voids are present. In this patient with this given history, scrutiny is given to dura and meninges. No abnormal thickening or abnormal enhancement can be seen. Skull and face: Calvarial marrow is normal in signal. Orbits appear normal. Note is made of bilateral lens replacements. Incidental note is made of hyperostosis frontalis. This is not considered to be pathologic in a woman of this age. Sinuses: Sinuses and mastoids appear clear. IMPRESSION: No significant intracranial abnormality is seen. Specifically, no abnormal enhancement. No thickening or abnormal enhancement can be seen of the dura or meninges. Dictated by: Rene Mccann M.D. on 08/13/2023 at 13:17 Approved by: Rene Mccann M.D. on 08/13/2023 at 13:24
[2023-08-13] MEDS: GABAPENTIN 300 MG CAPSULE 600 MG PO ×2 (08:52→20:56)
[2023-08-13] MEDS: AMLODIPINE 5 MG TABLET PO (08:53)
[2023-08-13] MEDS: METFORMIN HCL 500 MG TABLET PO ×2 (08:53→20:56)
[2023-08-13] MEDS: hydroCHLOROthiazide 25 MG TABLET PO (08:53)
[2023-08-13] MEDS: VENLAFAXINE ER 37.5 MG CAP PO (08:53)
[2023-08-13] MEDS: METOPROLOL IR 50 MG TABLET PO ×2 (08:53→20:56)
[2023-08-13] MEDS: LOSARTAN 50 MG TABLET 100 MG PO (08:53)
[2023-08-13 09:33] VITALS: BP 151/67; PULSE 89; RESP 20; TEMP 36.4; O2SAT 95
[2023-08-13] MEDS: LORazepam 2 MG/ML INJ 0.5 MG IV (10:33)
[2023-08-13] MEDS: KETOROLAC 30 MG/ML VIAL IV ×2 (10:40→20:56)
[2023-08-13] MEDS: ENOXAPARIN 40 MG/0.4 ML SYRINGE SUBCUT (10:44)
[2023-08-13 12:00] VITALS: BP 128/55; PULSE 77; RESP 20; TEMP 36.2; O2SAT 96
--- NOTE | 2023-08-13 14:11 | CM.DPNOTE ---
DCP Note DIAL REFINISHER reviewed EMR. Per provider, labs still pending to determine dcp for antibiotic plan. Per hospitalist, Estuardo RICO consulted but unclear if Jhoan is going to follow at dc or not. Per chart review, pt has PICC line. DIAL REFINISHER spoke with Lam[facility] at [facility]. Updated him that antibiotic plan is still pending. Lamonte appreciative and asked to be kept up to date. CM team will plan to follow closely for coordination of discharge plan. ORTIZ Almaguer
[2023-08-13 16:58] LABS: Vancomycin Trough 5.6 ug/mL (10-20)
[2023-08-13] MEDS: VANCOMYCIN TROUGH 1 REQUEST MISC (17:27)
[2023-08-13 18:00] VITALS: BP 128/90; PULSE 96; RESP 20; TEMP 36.5; O2SAT 97
[2023-08-13] MEDS: VANCOMYCIN 1,250 MG/250 ML PIGGYBACK 250 MG IV (18:24)
--- NOTE | 2023-08-13 18:55 | P.PN_ITS ---
Subjective Subjective Interval history: Patient feeling better today. FORBES not as intense. at bedside and questions were answered. Procal down to 7 and WBC now normal. CSF culture still no growth. Exam Vital Signs (past 8 hours): - 08/13/23 12:00 08/13/23 18:00 Temperature 97.1 F L 97.7 F Pulse Rate 77 96 H Respiratory Rate 20 20 Blood Pressure 128/55 L 128/90 Pulse Oximetry 96 97 Oxygen Flow Rate 0 0 Oxygen Delivery Method Room Air Oxygen Flow Rate 0 Narrative Exam Narrative: Gen: alert, oriented, appears uncomfortable Lungs: clear CV: regular, no murmur Ext: no edema Neuro: normal speech, thought processes Objective Labs 08/13/23 05:20 08/13/23 05:20 Labs: Laboratory Results - last 24 hr 08/13/23 08/13/23 05:20 16:46 WBC 10.4 RBC 3.39 L Hgb 11.1 L Hct 32.4 L MCV 95.4 MCH 32.7 MCHC 34.3 RDW 13.8 Plt Count 282 Neut % (Auto) 68.2 Lymph % (Auto) 19.7 L [place] % (Auto) 10.1 Eos % (Auto) 1.8 L Baso % (Auto) 0.2 Neut # (Auto) 7100 H Lymph # (Auto) 2000 [place] # (Auto) 1000 H Eos # (Auto) 200 Baso # (Auto) 0 Sodium 137 Potassium 3.9 Chloride 100 Carbon Dioxide 28 BUN 10 Creatinine 0.62 Estimated GFR > 60 BUN/Creatinine Ratio 16.1 Glucose 95 Calcium 9.0 Procalcitonin 7.22 H Vancomycin Trough 5.6 L [facility] Medical History (Updated 08/10/23 @ 18:46 by Peyton Olivares DO) Pre-diabetes Hypertension Social History (Updated 02/26/19 @ 05:33 by Merary Hodge DO) marital status: household members: spouse Smoking Status: Never smoker alcohol intake: current substance use type: does not use Assessment & Plan Assessment & Plan narrative: 1. Acute meningitis, likely viral - presented with headache/neck pain. CSF 112, prot 75 both sig elevated. Has GPC on CSF gram stain, neg PCR, culture no growth at 3 days. Blood cx neg at 72 hours. Cont Vanc, Rocephin, AMP. Trend symptoms, serum WBC and procalcitonin. Spoke with ID who feels this is likely viral given negative cultures, not significantly elevated protein, normal glucose and negative PCR. Rec adding cryptococcal antigen to CSF and brain MRI. Brain MRI negative. 2. Hypertension, chronic -cont amlodiopine, losartan, HCTZ per home routine. 3. Hyperlipidemia -cont atorvastatin 4. Possible superimposed migraine -patient having throbbing headache -trial 1g depakote IV to ablate migraine was ineffective Dispo: Pending CSF culture results and improvement in symptoms. 1-2 more days.
[2023-08-13] MEDS: ACETAMINOPHEN 325 MG TABLET 650 MG PO (20:50)
[2023-08-13] MEDS: SENNOSIDES 8.6 MG TABLET 17.2 MG PO (20:56)
[2023-08-13] MEDS: ATORVASTATIN 20 MG TABLET PO (20:56)
[2023-08-13] MEDS: polyethylene glycoL 3350 17 GM POWD.PACK PO (20:58)
[2023-08-13 22:16] VITALS: BP 146/64; PULSE 81; RESP 16; TEMP 36.2; O2SAT 99
[2023-08-14] VITALS: BP 143/65; PULSE 67; RESP 16; TEMP 36.2; O2SAT 94
[2023-08-14] MEDS: ONDANSETRON 4 MG/2 ML INJ IV ×3 (00:09→23:43)
[2023-08-14] MEDS: AMPICILLIN 2,000 MG in SODIUM CHLORIDE 0.9% 100 ML 200 MG IV ×7 (00:28→23:43)
[2023-08-14] MEDS: VANCOMYCIN 1,250 MG/250 ML PIGGYBACK 250 MG IV ×2 (05:02→17:57)
[2023-08-14 05:27] VITALS: BP 147/76; PULSE 81; RESP 16; TEMP 35.9; O2SAT 95
[2023-08-14 05:54] LABS: Add Manual Diff / Slide Review NO; Basophils Absolute Auto 0 /uL (0-100); Basophils Percent Auto 0.3 % (0-2); Eosinophils Absolute Auto 100 /uL (0-450); Hematocrit 31.4 % (36-46); Hemoglobin 10.4 g/dL (12.0-16.0); Lymphocytes Absolute Auto 2300 /uL (1100-4500); Lymphocytes Percent Auto 18.5 % (25-40); Mean Corpuscular HGB Conc 33.2 % (30-36); Mean Corpuscular Hemoglobin 31.9 PG (26-34); Mean Corpuscular Volume 96.2 fL (80-100); Monocytes Absolute Auto 1200 /uL (0-900); Monocytes Percent Auto 9.8 % (3-14); Neutrophils Absolute Auto 8600 /uL (1500-7000); Neutrophils Percent Auto 70.4 % (50-75); Platelet Count 288 X10^3/uL (150-400); Red Blood Cell Count 3.27 X10^6/uL (4.0-5.2); Red Cell Distribution Width 13.7 % (11.6-14.8); White Blood Cell Count 12.2 X10^3/uL (4.5-11.0)
[2023-08-14 06:10] LABS: BUN Creatinine Ratio 17.7 (6-22); Blood Urea Nitrogen 11 mg/dL (7-17); Calcium 9.2 mg/dL (8.4-10.2); Carbon Dioxide 31 mmol/L (22-32); Chloride 102 mmol/L (98-107); Estimated Glomerular Filt Rate > 60 mL/min (>60); Glucose 99 mg/dL (80-110); HEMOLYSIS < 15 (0-50); Potassium 3.7 mmol/L (3.4-5.1); Sodium 137 mmol/L (137-145)
[2023-08-14] MEDS: cefTRIAXone 2,000 MG in SODIUM CHLORIDE 0.9% 100 ML 200 MG IV ×2 (06:19→19:38)
[2023-08-14 06:26] LABS: Procalcitonin 3.65 ng/mL (<0.5)
[2023-08-14] MEDS: ENOXAPARIN 40 MG/0.4 ML SYRINGE SUBCUT (08:07)
[2023-08-14] MEDS: polyethylene glycoL 3350 17 GM POWD.PACK PO (08:07)
[2023-08-14] MEDS: KETOROLAC 30 MG/ML VIAL IV (08:08)
[2023-08-14 08:10] VITALS: BP 158/69; PULSE 87; RESP 18; TEMP 36.9
[2023-08-14] MEDS: LOSARTAN 50 MG TABLET 100 MG PO (08:10)
[2023-08-14] MEDS: GABAPENTIN 300 MG CAPSULE 600 MG PO ×2 (08:11→21:39)
[2023-08-14] MEDS: METOPROLOL IR 50 MG TABLET PO ×2 (08:11→21:39)
[2023-08-14] MEDS: OXYCODONE IR 5 MG TABLET PO ×3 (08:11→22:32)
[2023-08-14] MEDS: hydroCHLOROthiazide 25 MG TABLET PO (08:11)
[2023-08-14] MEDS: METFORMIN HCL 500 MG TABLET PO ×2 (08:11→21:40)
[2023-08-14] MEDS: AMLODIPINE 5 MG TABLET PO (08:11)
[2023-08-14] MEDS: VENLAFAXINE ER 37.5 MG CAP PO (08:28)
[2023-08-14 11:58] VITALS: BP 117/56; PULSE 74; RESP 18; TEMP 35.6; O2SAT 95
[2023-08-14] MEDS: ACETAMINOPHEN 325 MG TABLET 650 MG PO ×2 (15:06→22:32)
[2023-08-14 17:51] VITALS: BP 150/55; PULSE 84; RESP 18; TEMP 36.4
--- NOTE | 2023-08-14 17:53 | PM.PN.1 ---
Subjective Subjective Interval history: Patient feeling a bit better today. Called lab and CSF culture will be finalized on 08/15. She is hopeful to go home soon. Exam Vital Signs (past 8 hours): - 08/14/23 11:58 Temperature 96.0 F L Pulse Rate 74 Respiratory Rate 18 Blood Pressure 117/56 L Pulse Oximetry 95 Oxygen Delivery Method Room Air Oxygen Flow Rate 0 Narrative Exam Narrative: Gen: alert, oriented, appears uncomfortable Lungs: clear CV: regular, no murmur Ext: no edema Neuro: normal speech, thought processes Objective Labs 08/14/23 05:05 08/14/23 05:05 Labs: Laboratory Results - last 24 hr 08/14/23 05:05 WBC 12.2 H RBC 3.27 L Hgb 10.4 L Hct 31.4 L MCV 96.2 MCH 31.9 MCHC 33.2 RDW 13.7 Plt Count 288 Neut % (Auto) 70.4 Lymph % (Auto) 18.5 L [place] % (Auto) 9.8 Eos % (Auto) 1.0 L Baso % (Auto) 0.3 Neut # (Auto) 8600 H Lymph # (Auto) 2300 [place] # (Auto) 1200 H Eos # (Auto) 100 Baso # (Auto) 0 Sodium 137 Potassium 3.7 Chloride 102 Carbon Dioxide 31 BUN 11 Creatinine 0.62 Estimated GFR > 60 BUN/Creatinine Ratio 17.7 Glucose 99 Calcium 9.2 Procalcitonin 3.65 H [facility] Medical History (Updated 08/10/23 @ 18:46 by Peyton Olivares DO) Pre-diabetes Hypertension Social History (Updated 02/26/19 @ 05:33 by Merary Hodge DO) marital status: household members: spouse Smoking Status: Never smoker alcohol intake: current substance use type: does not use Assessment & Plan Assessment & Plan narrative: 1. Acute meningitis, likely viral - presented with headache/neck pain. CSF 112, prot 75 both sig elevated. Has GPC on CSF gram stain, neg PCR, culture no growth at 3 days. Blood cx neg at 72 hours. Cont Vanc, Rocephin, ampicillin. Trend symptoms, serum WBC and procalcitonin. Spoke with ID who feels this is likely viral given negative cultures, not significantly elevated protein, normal glucose and negative PCR. Rec adding cryptococcal antigen to CSF and brain MRI. Brain MRI and crypto CSF Ag negative. Per lab, CSF culture will finalize on 08/15 and then IV abx can be stopped and patient discharged potentially if feeling better. 2. Hypertension, chronic -cont amlodiopine, losartan, HCTZ per home routine. 3. Hyperlipidemia -cont atorvastatin 4. Possible superimposed migraine -patient having throbbing headache -trial 1g depakote IV to ablate migraine was ineffective -imitrex and toradol PRN Dispo: Pending CSF culture results on 08/15 and improvement in symptoms. 1-2 more days.
[2023-08-14 21:19] VITALS: BP 136/74; PULSE 90; RESP 16; TEMP 36.1; O2SAT 92
[2023-08-14] MEDS: SENNOSIDES 8.6 MG TABLET 17.2 MG PO (21:39)
[2023-08-14] MEDS: ATORVASTATIN 20 MG TABLET PO (21:40)
[2023-08-14] MEDS: LORazepam 2 MG/ML INJ 0.5 MG IV (22:33)
[2023-08-14] MEDS: SODIUM CHLORIDE 0.9% 250 ML 21 ML IV (22:59)
[2023-08-15] VITALS: BP 124/56; PULSE 84; RESP 16; TEMP 36.1; O2SAT 92
[2023-08-15] MEDS: VANCOMYCIN TROUGH 1 REQUEST MISC (04:30)
[2023-08-15] MEDS: AMPICILLIN 2,000 MG in SODIUM CHLORIDE 0.9% 100 ML 200 MG IV ×2 (04:40→08:27)
[2023-08-15 04:56] LABS: Add Manual Diff / Slide Review NO; Basophils Absolute Auto 100 /uL (0-100); Basophils Percent Auto 0.4 % (0-2); Eosinophils Absolute Auto 100 /uL (0-450); Hematocrit 28.7 % (36-46); Hemoglobin 9.7 g/dL (12.0-16.0); Lymphocytes Absolute Auto 1600 /uL (1100-4500); Mean Corpuscular HGB Conc 33.8 % (30-36); Mean Corpuscular Hemoglobin 32.4 PG (26-34); Mean Corpuscular Volume 95.7 fL (80-100); Monocytes Absolute Auto 1200 /uL (0-900); Monocytes Percent Auto 8.8 % (3-14); Neutrophils Absolute Auto 10600 /uL (1500-7000); Neutrophils Percent Auto 77.8 % (50-75); Platelet Count 306 X10^3/uL (150-400); Red Cell Distribution Width 13.6 % (11.6-14.8); White Blood Cell Count 13.6 X10^3/uL (4.5-11.0)
[2023-08-15 05:00] LABS: Blood Urea Nitrogen 9 mg/dL (7-17); Carbon Dioxide 27 mmol/L (22-32); Chloride 101 mmol/L (98-107); Estimated Glomerular Filt Rate > 60 mL/min (>60); Glucose 104 mg/dL (80-110); HEMOLYSIS < 15 (0-50); Potassium 3.7 mmol/L (3.4-5.1); Sodium 135 mmol/L (137-145)
[2023-08-15 05:06] LABS: Vancomycin Trough 10.4 ug/mL (10-20)
[2023-08-15] MEDS: VANCOMYCIN 1,250 MG/250 ML PIGGYBACK 250 MG IV (05:07)
[2023-08-15 06:00] VITALS: BP 183/88; PULSE 105; RESP 20; TEMP 36.1; O2SAT 95
[2023-08-15] MEDS: ONDANSETRON 4 MG/2 ML INJ IV (06:01)
[2023-08-15] MEDS: cefTRIAXone 2,000 MG in SODIUM CHLORIDE 0.9% 100 ML 200 MG IV (06:01)
[2023-08-15] MEDS: ACETAMINOPHEN 325 MG TABLET 650 MG PO (06:18)
[2023-08-15] MEDS: OXYCODONE IR 5 MG TABLET PO (06:33)
[2023-08-15 08:00] VITALS: BP 133/63; PULSE 86; RESP 16; TEMP 36.5; O2SAT 93
[2023-08-15] MEDS: hydroCHLOROthiazide 25 MG TABLET PO (08:27)
[2023-08-15] MEDS: GABAPENTIN 300 MG CAPSULE 600 MG PO (08:27)
[2023-08-15] MEDS: METFORMIN HCL 500 MG TABLET PO (08:27)
[2023-08-15] MEDS: AMLODIPINE 5 MG TABLET PO (08:27)
[2023-08-15 08:28] VITALS: BP 133/63
[2023-08-15] MEDS: VENLAFAXINE ER 37.5 MG CAP PO (08:28)
[2023-08-15] MEDS: LOSARTAN 50 MG TABLET 100 MG PO (08:28)
[2023-08-15] MEDS: ENOXAPARIN 40 MG/0.4 ML SYRINGE SUBCUT (08:28)
[2023-08-15] MEDS: polyethylene glycoL 3350 17 GM POWD.PACK PO (08:28)
[2023-08-15] MEDS: METOPROLOL IR 50 MG TABLET PO (08:28)
[2023-08-15] MEDS: KETOROLAC 30 MG/ML VIAL IV (08:30)
--- NOTE | 2023-08-15 11:11 | CM.DPNOTE ---
DC Note Patient discharging home, no need for abx, indp. in room. No needs identified from this CM team. MURRAY
--- NOTE | 2023-08-15 11:29 | PM.DS.1 ---
History of Present Illness History of Present Illness Date Patient Seen: 08/15/23 Time Patient Seen: 11:29 Chief complaint: vomiting/ headache Narrative: The pt is a 72 yo female who developed severe FORBES - bi-temporal radiating to the neck with nausea and vomiting 4 days ago. She was feeling better on Saturday and [place] and drank some wine and whiskey to celebrate. The FORBES returned nd and since reports she has been unable to tolerate any food or liquid. She does state that she has had subjective fevers and chills. Several years ago she had similar symptoms and was dx with meningitis. The pt was in the ER 3 days ago for this headache and was sent home with symptomatic meds but due to worsening symptoms she came back to the ER. In the ER, a LP was done with CSF results reviewed. THe pt does have a hx of Migraine headache which has become more frequent in occurrences. No photo or phonophobia, no recent illness, Discharge Providers Provider Date of admission: 08/11/23 16:05 Discharge Date: 08/15/23 Primary care physician: ERINN Esposito Discharge provider: Ruslan Guevara DO Summary Hospital Course Discharge Diagnosis: 1. Acute meningitis, likely viral 2. Hypertension, chronic 3. Hyperlipidemia 4. Possible superimposed migraine 5. Sinusitis Hospital Course: This is a 72 year old female with HTN, HLD who presented with recurrent headaches, severe enough to cause nausea and vomiting. She had a prior history of meningitis, so LP was done and showed elevated WBC count. She was empirically started on Vanc, rocephin, and ampicillin given her age. Viral PCR of her CSF was negative, and CSF cultures were negative. ID was consulted and if cultures negative they recommended no further antiboitics. Patient did have improvement in her symptoms over time. The exact etiology of her symptoms are not entirely known at discharge but remain possible viral mengitis, aseptic meningitis. Her facial pain was also highly consistent with sinusitis based on my evaluation, so as a precaution she was discharged with 7 days of augmentin therapy. No other changes to her home medications are recommended at discharge. Time Spent with Patient Time spent: Greater than 30 minutes Exam Vital Signs (past 8 hours): - 08/15/23 06:00 08/15/23 08:00 08/15/23 08:28 Temperature 97.0 F L 97.7 F Pulse Rate 105 H 86 Respiratory Rate 20 16 Blood Pressure 183/88 H 133/63 133/63 Pulse Oximetry 95 93 Oxygen Flow Rate 0 Oxygen Delivery Method Room Air Oxygen Flow Rate 0 Narrative Exam Narrative: Gen: alert, oriented, appears uncomfortable Lungs: clear CV: regular, no murmur Ext: no edema Neuro: normal speech, thought processes Objective Labs 08/15/23 04:49 08/15/23 04:49 Labs: Laboratory Results - last 24 hr 08/15/23 08/15/23 04:30 04:49 WBC 13.6 H RBC 3.00 L Hgb 9.7 L Hct 28.7 L MCV 95.7 MCH 32.4 MCHC 33.8 RDW 13.6 Plt Count 306 Neut % (Auto) 77.8 H Lymph % (Auto) 12.0 L [place] % (Auto) 8.8 Eos % (Auto) 1.0 L Baso % (Auto) 0.4 Neut # (Auto) 87831 H Lymph # (Auto) 1600 [place] # (Auto) 1200 H Eos # (Auto) 100 Baso # (Auto) 100 Sodium 135 L Potassium 3.7 Chloride 101 Carbon Dioxide 27 BUN 9 Creatinine 0.60 Estimated GFR > 60 BUN/Creatinine Ratio 15.0 Glucose 104 Calcium 9.0 Vancomycin Trough 10.4 PFSH Medical History (Updated 08/10/23 @ 18:46 by Peyton Olivares DO) Pre-diabetes Hypertension Social History (Updated 02/26/19 @ 05:33 by Merary Hodge DO) marital status: household members: spouse Smoking Status: Never smoker alcohol intake: current substance use type: does not use Discharge Plan Discharge Plan Patient Disposition: Home Provider Discharge Comment: You were admitted to the hospital with possible meningitis, though nothing could exactly be found. Complete another week of antibiotics at home for possible sinus infection, continue pain relief as needed. Discharge orders & Medications Prescriptions: New amoxicillin-pot clavulanate 875-125 mg tablet 1 tab PO BID 7 Days Qty: 14 0RF oxycodone 5 mg tablet 5 mg PO Q8H PRN (Reason: pain) 7 Days Qty: 20 0RF ketorolac 10 mg tablet 10 mg PO Q8H 5 Days Qty: 15 0RF Continued aspirin 81 MG tablet,delayed release (DR/EC) 81 mg PO DAILY Qty: 0 sodium,potassium,mag sulfates [Suprep Bowel Prep Kit] 17.5-3.13-1.6 gram recon soln See Rx Instructions PO .COMPLEX Qty: 354 0RF Rx Instructions: take as directed by Physician ketorolac 0.5 % drops 1 drp EYE-RIGHT [id number] Patient Comments: INSTILL 1 DROP TWICE DAILY INTO RIGHT EYE FOR 5 WEEKS. albuterol sulfate 90 mcg/actuation HFA aerosol inhaler escitalopram oxalate 20 mg tablet 20 mg PO DAILY hydrocodone-acetaminophen [Flora] 5-325 mg tablet 1 tab PO Q4-6H PRN (Reason: pain) Qty: 14 0RF ondansetron 4 mg tablet,disintegrating 4 mg PO Q6-8H PRN (Reason: nausea and vomiting) Qty: 10 0RF sodium,potassium,mag sulfates 17.5-3.13-1.6 gram recon soln PO amlodipine 5 mg tablet 5 mg PO DAILY metoprolol tartrate 50 mg tablet 50 mg PO BID losartan 100 mg tablet 100 mg PO DAILY gabapentin 300 mg capsule 600 mg PO BID metformin 500 mg tablet 500 mg PO BID venlafaxine 37.5 mg tablet 37.5 mg PO DAILY atorvastatin 20 mg tablet 20 mg PO DAILY amlodipine 5 mg tablet 5 mg PO DAILY hydrochlorothiazide 25 mg tablet 25 mg PO QAM Follow up/Referrals: Vivien Aguirre ARNP [Primary Care Provider] - Diet/Activity/Treatments Diet: Diet as Tolerated and Regular Activity: As tolerated, no restrictions. Visit Report/Discharge Packet Instructions: DI for Migraine, DI for Viral Meningitis -- Adult, Oxycodone, Amoxicillin and Clavulanic Acid, Ketorolac Stand Alone Forms: Patient Portal/API, Stroke Signs & Symptoms Discharge Data Primary Care Provider: Vivien Aguirre
--- NOTE | 2023-08-15 12:17 | PC.NURSE ---
Pt is dressed and ready for discharge home with Spouse Luis Miguel. IV's have been removed. Went over d/c instructions with Pt-discussed d/c meds, time of last dose, reviewed stroke education, encouraged fluid intake to prevent constipation or dehydration. No driving while on narcotics. Consider stool softener to assist with Constipation-although Pt was able to have a small bowel movement today. Pt denied further questions and will be taken out via w/c by SOFTWARE PACKAGING ENGINEER to POV, with all belongings, when spouse arrives to drive her home.
== END 2023-08-15 13:47 | disposition home or self-care (01) | DRG 76 ==
LOC: ED 13:28 → AC 16:30
PROVIDERS: Student in an Organized Health Care Education/Training Program; Admitting Provider Family Medicine; Emergency Provider Emergency Medicine; PCP Nurse Practitioner; Referring Provider Emergency Medicine; Visit Provider Family Medicine
DX: A87.9 Viral meningitis, unspecified (principal); I10 Essential (primary) hypertension; Z11.52 Encounter for screening for COVID-19; E78.5 Hyperlipidemia, unspecified; G43.909 Migraine, unspecified, not intractable, without status migrainosus; Z79.82 Long term (current) use of aspirin; Z79.84 Long term (current) use of oral hypoglycemic drugs; R73.03 Prediabetes
CPT/HCPCS: 36415; 36569; 36592; 70450; 70553; 80048; 80053; 80202; 82945; 82962; 83036; 83605; 83735; 84145; 84157; 85025; 87040; 87070; 87205; 87633; 87798; 87899; 89051; 93005; 93010; 96365; 96367; 96368; 96375; 96376; 99284; G0378; A9579; C9113; J0290; J0696; J0780; J1100; J1170; J1650; J1815; J1885; J2060; J2270; J2405; J2765; J3360; J7050

== ENCOUNTER 2023-10-29 08:38 | Day surgery (SDC) | payer OTHER, MEDICARE, SELFPAY ==
[2023-08-10 19:01] VITALS: BMI 29.0
[2023-10-29 09:26] VITALS: BP 145/81; PULSE 76; RESP 12; TEMP 36.1; O2SAT 95
--- NOTE | 2023-10-29 09:27 | SUR.PREOP ---
Patient arrived slightly unsteady. Reported fatigue, nausea, headache. VS stable. IV started, fluids infusing.
--- NOTE | 2023-10-29 09:28 | SUR.PREOP ---
Patient reported nausea, headache resolved.
[2023-10-29] MEDS: LACTATED RINGERS 1,000 ML 42 ML IV (09:29)
--- NOTE | 2023-10-29 09:39 | PM.HP.1 ---
History of Present Illness History of Present Illness Date Patient Seen: 10/29/23 Time Patient Seen: 09:39 Chief complaint: SDC Narrative: 73-year-old woman personal history of colonic polyps here for screening colonoscopy. Last colonoscopy 7 years ago notable for benign polyp. No family history of intestinal malignancy. No abdominal concerns today. [facility] Medical History Pre-diabetes Hypertension Social History marital status: household members: spouse Smoking Status: Never smoker alcohol intake: current substance use type: does not use Meds Home Medications and Allergies Home Medications Medication Instructions Recorded Confirmed Type aspirin 81 mg tablet,delayed 81 mg PO DAILY ##0 05/20/16 10/29/23 History release ketorolac 0.5 % eye drops 1 drp EYE-RIGHT [id number] 02/26/19 02/26/19 History amlodipine 5 mg tablet 5 mg PO DAILY 08/10/23 10/29/23 History atorvastatin 20 mg tablet 20 mg PO DAILY 08/10/23 10/29/23 History gabapentin 300 mg capsule 600 mg PO BID 08/10/23 10/29/23 History hydrochlorothiazide 25 mg tablet 25 mg PO QAM 08/10/23 10/29/23 History losartan 100 mg tablet 100 mg PO DAILY blood pressure 08/10/23 10/29/23 History metformin 500 mg tablet 500 mg PO BID diabetes mellitus 08/10/23 10/29/23 History metoprolol tartrate 50 mg tablet 50 mg PO BID 08/10/23 10/29/23 History venlafaxine 37.5 mg tablet 37.5 mg PO DAILY 08/10/23 10/29/23 History Allergies Allergy/AdvReac Type Severity Reaction Status Date / Time No Known Drug Allergies Allergy Verified 10/29/23 09:09 Exam Vital Signs (past 8 hours): - 10/29/23 09:26 Temperature 97.0 F L Pulse Rate 76 Respiratory Rate 12 Blood Pressure 145/81 H Pulse Oximetry 95 Oxygen Delivery Method Room Air Oxygen Delivery Method Room Air Narrative Exam Narrative: General adult woman alert oriented no acute distress Chest nonlabored respiration Extremities warm well perfused Assessment & Plan Assessment & Plan narrative: The patient requires colorectal screening and colonoscopy is recommended. Technical details were discussed. Risks, benefits, alternatives explained. Risks including but not limited to myocardial infarction, aspiration, bleeding, pain, missed lesion, incomplete examination, need for further radiographic studies, colonic perforation, and need for major abdominal surgery were discussed. All questions were answered to their satisfaction, and they are in agreement with this plan.
[2023-10-29 10:10] VITALS: BP 125/72; PULSE 79; RESP 20; TEMP 37; O2SAT 97
[2023-10-29 10:15] VITALS: BP 123/64; PULSE 79; RESP 17; TEMP 36.9; O2SAT 99
--- NOTE | 2023-10-29 10:18 | P.OP.COLON_ITS ---
Operative Date/Time/Diagnoses Date of procedure: 10/29/23 Time of procedure: 10:18 Pre-op diagnosis: Colorectal screening Procedure & Clinicians Study performed: Colonoscopy Same procedure as scheduled: Yes Indications: Colorectal screening Surgeon: Clayton Chanel Procedure Notes Procedure in detail: The history and physical was performed/updated and the patient is ASA class is 2. The procedure was discussed in detail with the patient. Potential risks complications including infection, bleeding, missed diagnosis, perforation, need for surgery, and were explained. Their questions were answered and informed consent was obtained. Patient was brought to the procedure room and placed standard monitoring equipment. The patient's vital signs were monitored continuously throughout the entire procedure. Prior to starting time-out was performed. The patient was placed in the left lateral recumbent position. Procedural sedation was administered by anesthesia. Examination began with a thorough inspection of the perianal area there was no evidence of fissures, fistulae, external hemorrhoids or cutaneous malignancy. The colonoscopy scope was then placed into the anal canal and was advanced to the cecum, which was identified by the ileocecal valve , the appendiceal orifice and the confluence of the taenia. The scope was then slowly withdrawn examining colon thoroughly in all directions, irrigating it of any residual stool. The scope was retroflexed within the rectum The patient tolerated the procedure well. They will be discharged once criteria are met. The prep was of good/excellent quality. The withdrawl time was 6 minutes. FINDINGS * Normal colonoscopy. No masses polyps or inflammation * Internal hemorrhoids Specimen(s): none sent Impression: Normal colonoscopy Post-procedure Plan for aftercare: No further colonoscopy necessary Disposition: same day surgery
[2023-10-29 10:21] VITALS: PULSE 74; RESP 14; TEMP 36.9; O2SAT 99
[2023-10-29 10:22] VITALS: BP 135/72
[2023-10-29 10:27] VITALS: BP 131/70; PULSE 71; RESP 15; TEMP 36.9; O2SAT 99
== END 2023-10-29 10:50 | disposition home or self-care (01) ==
PROVIDERS: PCP Nurse Practitioner; Referring Provider Surgery; Visit Provider Surgery
PROC: 0DJD8ZZ Inspection of Lower Intestinal Tract, Via Natural or Artificial Opening Endoscopic (ICD-10-PCS; CPT 45378; principal; 2023-10-29 09:45)
DX: Z12.11 Encounter for screening for malignant neoplasm of colon (principal); K64.8 Other hemorrhoids
CPT/HCPCS: G0121; J2704

== ENCOUNTER 2024-07-17 23:11 | Emergency (ER) | payer OTHER, MEDICARE, SELFPAY ==
[2023-08-10 19:01] VITALS: BMI 29.0
[2024-07-17 23:22] VITALS: BP 163/72; PULSE 94; RESP 20; TEMP 37.3; O2SAT 98; BMI 29.0
--- NOTE | 2024-07-17 23:23 | DI.CT.S_ITS ---
PROCEDURE: CT HEAD/BRAIN WO CON INDICATIONS: severe throbbing headache TECHNIQUE: Noncontrast 4.5 mm thick angled axial sections acquired from the foramen magnum to the vertex, with coronal and sagittal reformats. For radiation dose reduction, the following was used: automated exposure control, adjustment of mA and/or kV according to patient size. COMPARISON: [facility], CT, CT HEAD/BRAIN WO CON, 08/10/2023, 13:39. FINDINGS: Image quality: Diagnostic. CSF spaces: Basal cisterns are patent. No extra-axial fluid collections. The ventricles are symmetric in size and shape. Brain: No intracranial bleeds or masses. There is cerebral volume loss for age, with resultant ventricular and sulcal prominence. There are periventricular and deep white matter chronic small vessel ischemic changes. There is intracranial internal carotid artery atherosclerosis. Skull and face: Calvarium and visualized facial bones appear intact, without suspicious lesions. Bilateral lens replacements. Sinuses: Visualized sinuses and mastoids are clear. IMPRESSION: No acute intracranial pathology. Dictated by: Amari Cope M.D. on 07/17/2024 at 23:49 Approved by: Amari Cope M.D. on 07/17/2024 at 23:50
--- NOTE | 2024-07-17 23:30 | ED.HA ---
HPI - Headache General Chief Complaint: Headache Stated Complaint: headache, full body aches, nausea Time Seen by Provider: 07/17/24 23:13 Mode of arrival: Wheelchair History of Present Illness HPI Narrative: 73-year-old female with history of fibromyalgia, hypertension presents by private vehicle from home for throbbing headache and body aches. Patient has been seen in this emergency department several times for similar. In January of 2019 and August of 2023 patient even underwent lumbar puncture and was given presumptive diagnosis of viral meningitis, however both of these viral CSF panels were negative. Patient has been taking Tylenol and gabapentin at home for symptoms. She states that she has a severe pounding headache and pain in her entire body. She states that this is the exact same as when she was seen in the emergency department previously Related Data Home Medications Medication Instructions Recorded Confirmed aspirin 81 mg tablet,delayed 81 mg PO DAILY ##0 05/20/16 10/29/23 release ketorolac 0.5 % eye drops 1 drp EYE-RIGHT [id number] 02/26/19 02/26/19 amlodipine 5 mg tablet 5 mg PO DAILY 08/10/23 10/29/23 atorvastatin 20 mg tablet 20 mg PO DAILY 08/10/23 10/29/23 gabapentin 300 mg capsule 600 mg PO BID 08/10/23 10/29/23 hydrochlorothiazide 25 mg tablet 25 mg PO QAM 08/10/23 10/29/23 losartan 100 mg tablet 100 mg PO DAILY blood pressure 08/10/23 10/29/23 metformin 500 mg tablet 500 mg PO BID diabetes mellitus 08/10/23 10/29/23 metoprolol tartrate 50 mg tablet 50 mg PO BID 08/10/23 10/29/23 venlafaxine 37.5 mg tablet 37.5 mg PO DAILY 08/10/23 10/29/23 Previous Rx's Medication Instructions Recorded drxdbgsawu-ikmlqtizeavle-kootpdcv 1 cap PO TID PRN pain #14 caps 07/18/24 50 mg-300 mg-40 mg capsule (Fioricet) sumatriptan succinate 25 mg tablet See Rx Instructions PO .COMPLEX 07/18/24 #14 tabs Allergies Allergy/AdvReac Type Severity Reaction Status Date / Time No Known Drug Allergies Allergy Verified 10/29/23 09:09 Patient History Medical History Pre-diabetes Hypertension Social History marital status: household members: spouse Smoking Status: Never smoker alcohol intake: current substance use type: does not use Smoking Status: Never smoker alcohol intake frequency: 3 or more drinks per day Substance Use Type: does not use Exam Initial Vital Signs Initial Vital Signs: Vital Signs Temperature 99.1 F 07/17/24 23:22 Pulse Rate 94 H 07/17/24 23:22 Respiratory Rate 20 07/17/24 23:22 Blood Pressure 163/72 H 07/17/24 23:22 Pulse Oximetry 98 07/17/24 23:22 Oxygen Delivery Method Room Air 07/17/24 23:22 Const: Awake, alert, uncomfortable, in pain Neck: Full range of motion, no rigidity Cardiac: regular rate, regular rhythm RESP: unlabored, clear bilaterally, no wheezing Skin: Warm, Dry, intact, no rashes Neuro: AO x3, CN II-XII grossly intact, moves all extremities Course Orders Ordered: ED Orders 07/17/24 23:23 CT head/brain wo con Stat 07/17/24 23:29 CBC Auto Diff [Complete Blood Count AUTO DIFF] Stat CMP [Comprehensive Metabolic Panel] Stat CRP [C-Reactive Protein Quant] Stat Erythrocyte Sedimentation Rate Stat Lactate (Lactic Acid) Stat Procalcitonin Stat Respiratory Panel (Film Array) Stat Discontinued Medications Acetaminophen/Butalbital/Caffeine (Butalb/Apap/Caffeine 50/325/40 Tablet) 1 each PO NOW ONE Stop: 07/18/24 02:24 Last Admin: 07/18/24 02:31 Dose: 1 each Diphenhydramine HCl (Diphenhydramine 50 Mg/Ml Vial) 50 mg IV NOW ONE Stop: 07/17/24 23:23 Last Admin: 07/17/24 23:35 Dose: 50 mg Documented By: JAQUAN Droperidol (Droperidol 5 Mg/2 Ml Vial) 2.5 mg IV NOW ONE Stop: 07/17/24 23:23 Last Admin: 07/17/24 23:35 Dose: 2.5 mg Documented By: JAQUAN Acetaminophen (Ofirmev) 1,000 mg in 100 mls @ 400 mls/hr IV NOW ONE Stop: 07/17/24 23:36 Last Admin: 07/17/24 23:32 Dose: Not Given Documented By: JAQUAN Sodium Chloride (Normal Saline 0.9%) 1,000 mls @ 1,000 mls/hr IV BOLUS ONE Stop: 07/18/24 00:21 Last Infusion: 07/18/24 01:03 Dose: Infused Documented By: Admin: 07/17/24 23:34 Dose: 1,000 mls/hr Documented By: JAQUAN Ketorolac Tromethamine (Ketorolac 30 Mg/Ml Vial) 15 mg IV NOW ONE Stop: 07/18/24 00:50 Last Admin: 07/18/24 00:58 Dose: 15 mg Documented By: JAQUAN Metoclopramide HCl (Metoclopramide 10 Mg/2 Ml Inj) 10 mg IV NOW ONE Stop: 07/17/24 23:23 Last Admin: 07/17/24 23:35 Dose: 10 mg Documented By: JAQUAN Vital Signs Vital signs: Vital Signs - 8 hr 07/17/24 23:22 07/18/24 00:05 07/18/24 00:30 Temperature 99.1 F Pulse Rate 94 H 93 H Respiratory Rate 20 Blood Pressure 163/72 H 128/60 Pulse Oximetry 98 94 Oxygen Delivery Method Room Air 07/18/24 00:30 07/18/24 01:00 07/18/24 01:00 Temperature Pulse Rate 84 79 Respiratory Rate Blood Pressure 122/59 L Pulse Oximetry 95 94 Oxygen Delivery Method Room Air 07/18/24 01:32 07/18/24 01:33 07/18/24 01:33 Temperature Pulse Rate 81 78 Respiratory Rate Blood Pressure 110/53 L Pulse Oximetry 95 95 Oxygen Delivery Method Room Air 07/18/24 02:00 07/18/24 02:00 07/18/24 02:30 Temperature Pulse Rate 76 Respiratory Rate 18 Blood Pressure 122/58 L 111/56 L Pulse Oximetry 94 Oxygen Delivery Method 07/18/24 02:30 Temperature 98.2 F Pulse Rate 82 Respiratory Rate Blood Pressure Pulse Oximetry 94 Oxygen Delivery Method Room Air MDM - Headache Lab Data 07/17/24 23:29 07/17/24 23:29 Labs: Lab Results 07/17/24 Range/Units 23:29 WBC 12.5 H (4.5-11.0) X10^3/uL RBC 3.96 L (4.0-5.2) X10^6/uL Hgb 12.8 (12.0-16.0) g/dL Hct 37.6 (36-46) % MCV 95.0 (80-100) fL MCH 32.3 (26-34) PG MCHC 34.0 (30-36) % RDW 13.2 (11.6-14.8) % Plt Count 191 (150-400) X10^3/uL Neut % (Auto) 89.9 H (50-75) % Lymph % (Auto) 4.4 L (25-40) % Lander % (Auto) 4.4 (3-14) % Eos % (Auto) 0.2 L (2-4) % Baso % (Auto) 1.1 (0-2) % Neut # (Auto) 56198 H (9654-5133) /uL Lymph # (Auto) 600 L (8241-0013) /uL Lander # (Auto) 500 (0-900) /uL Eos # (Auto) 0 (0-450) /uL Baso # (Auto) 100 (0-100) /uL ESR 29 H (0-20) MM/HR Sodium 134 L (137-145) mmol/L Potassium 3.6 (3.4-5.1) mmol/L Chloride 101 (98-107) mmol/L Carbon Dioxide 24 (22-32) mmol/L BUN 13 (7-17) mg/dL Creatinine 0.74 (0.52-1.04) mg/dL Estimated GFR > 60 (>60) mL/min BUN/Creatinine Ratio 17.6 (6-22) Glucose 138 H (80-110) mg/dL Lactate 1.5 (0.7-2.1) mmol/L Calcium 9.4 (8.4-10.2) mg/dL Total Bilirubin 0.7 (0.2-1.3) mg/dL AST 44 H (14-36) IU/L ALT 40 H (<35) IU/L Alkaline Phosphatase 77 (38-126) U/L C-Reactive Protein 16.0 H (<1.0) mg/dL Total Protein 6.9 (6.3-8.2) g/dL Albumin 4.2 (3.5-5.0) g/dL Globulin 2.7 (1.7-4.1) g/dL Albumin/Globulin Ratio 1.6 (1.0-2.8) Procalcitonin 10.2 H (<0.5) ng/mL Chlamy pneumoniae PCR Not detected (Not Detect) Adenovirus (PCR) Not detected (Not Detect) B. pertussis DNA (PCR) Not detected (Not Detect) B.parapertussis DNA PCR Not detected (Not Detecte) Coronavirus OC43 (PCR) Not detected (Not Detect) Coronavirus HKU1 (PCR) Not detected (Not Detect) Coronavirus 229E (PCR) Not detected (Not Detect) SARS-CoV-2 (PCR) Not detected (Not Detecte) Coronavirus NL63 (PCR) Not detected (Not Detect) Human Metapneumovir PCR Not detected (Not Detect) Influenza Type A (PCR) Not detected (Not Detect) Influenza Type B (PCR) Not detected (Not Detect) M. pneumoniae (PCR) Not detected (Not Detect) Parainfluenza 1 (PCR) Not detected (Not Detect) Parainfluenza 2 (PCR) Not detected (Not Detect) Parainfluenza 3 (PCR) Not detected (Not Detect) Parainfluenza 4 (PCR) Not detected (Not Detect) RSV (PCR) Not detected (Not Detect) Entero/Rhino (PCR) Not detected (Not Detect) Imaging Data CT scan - head: Radiologist's Impression: PROCEDURE: CT HEAD/BRAIN WO CON INDICATIONS: severe throbbing headache TECHNIQUE: Noncontrast 4.5 mm thick angled axial sections acquired from the foramen magnum to the vertex, with coronal and sagittal reformats. For radiation dose reduction, the following was used: automated exposure control, adjustment of mA and/or kV according to patient size. COMPARISON: , CT, CT HEAD/BRAIN WO CON, 08/10/2023, 13:39. FINDINGS: Image quality: Diagnostic. CSF spaces: Basal cisterns are patent. No extra-axial fluid collections. The ventricles are symmetric in size and shape. Brain: No intracranial bleeds or masses. There is cerebral volume loss for age, with resultant ventricular and sulcal prominence. There are periventricular and deep white matter chronic small vessel ischemic changes. There is intracranial internal carotid artery atherosclerosis. Skull and face: Calvarium and visualized facial bones appear intact, without suspicious lesions. Bilateral lens replacements. Sinuses: Visualized sinuses and mastoids are clear. IMPRESSION: No acute intracranial pathology. Dictated by: Amari Cope M.D. on 07/17/2024 at 23:49 Approved by: Amari Cope M.D. on 07/17/2024 at 23:50 [facility] Narrative Medical decision making narrative: Patient presenting with severe headache and body aches similar to previous presentations. Currently afebrile, moves all extremities, no nuchal rigidity. Patient and has been are very concerned that patient may have viral meningitis again. Laboratory work, respiratory panel, headache cocktail, CT brain ordered for assessment. Laboratory work reviewed: WBC count 12.5, hemoglobin 12.8, platelets 191, sodium 134, potassium 3.6, creatinine 0.74, procalcitonin 10.2, CRP 16, sed rate 29. CT brain negative for acute findings. When comparing lab results to previous patient has had fluctuations in procalcitonin and WBC count between 11.8 to 18.6. Procalcitonin has varied from 0.09 to 22.6 between visits. This is first measured CRP and sed rate. Patient reassessed, she states she still has a headache but overall is feeling improved. With patient's rather complicated history call placed to [facility] Neurology for recommendations. Toradol added for pain. Still waiting recommendations from neurology. Patient reassessed after Toradol, states that she feels significantly better, and ideally would like to go home. expresses concern that the headache will return like it did last year. Discussed case with Dr. Rowley with Neurology. Patient's results from 2018, 2022, and today relayed to [employer] infrastructure consultant, with question being if patient would require additional testing such as lumbar puncture given her previous history of several day hospitalization last year. Dr. Rowley stated that patient may have had a viral meningitis last year, however with negative HSV panel, negative cryptococcal antigen, immunocompetent status, and several previous similar headaches, an LP would provide little if any diagnostic value. Even if patient does have viral meningitis care is supportive, and if pain can be controlled then patient can be discharged home. Patient has been informed of neurology recommendations. Patient states that she really would like to go home if at all possible and is happy with neurology recommendations. She said that she did experience relief with sumatriptan prescribed last year. Fiorcet and sumatriptan sent to pharmacy of choice. Patient states that she has an upcoming appointment with her primary care doctor next week. I recommended discussing possible Neurology consultation for recurrent headaches with her PCP. Patient and given strict ED return precautions. Discharge Plan Departure Patient Disposition: Home Clinical Impression: Headache Instructions: DI for Headache Activity Restrictions/Additional Instructions: Your laboratory work and CT imaging today are similar when compared to previous scans. I spoke with Neurology at [facility] and they feel it is unlikely that you have bacterial or fungal meningitis at this time, and a lumbar puncture would not change treatment. Fiorcet can be used for breakthrough headaches. Since sumatriptan seemed to work for you last time a refill has been sent to the [facility] in [place]. Make sure that you stay hydrated and drink plenty of fluids. Take it easy for the next several days and avoid bright lights, loud noises, alcohol, tobacco, or other things that may aggravate a headache. If you have uncontrollable vomiting or notice a change in your mental status please come back to the ER for repeat evaluation. Prescriptions: New tongiuxsnt-tqdseyauverww-wtbu [Fioricet] 50-300-40 mg capsule 1 cap PO TID PRN (Reason: pain) Qty: 14 0RF sumatriptan succinate 25 mg tablet See Rx Instructions .ROUTE .COMPLEX Qty: 14 0RF Rx Instructions: take 1 tab at onset of headache; if no relief may repeat 1 tab after at least 2 hrs; max = 4 tabs/24 hr No Action aspirin 81 MG tablet,delayed release (DR/EC) 81 mg PO DAILY Qty: 0 ketorolac 0.5 % drops 1 drp EYE-RIGHT [id number] Patient Comments: INSTILL 1 DROP TWICE DAILY INTO RIGHT EYE FOR 5 WEEKS. amlodipine 5 mg tablet 5 mg PO DAILY metoprolol tartrate 50 mg tablet 50 mg PO BID losartan 100 mg tablet 100 mg PO DAILY gabapentin 300 mg capsule 600 mg PO BID metformin 500 mg tablet 500 mg PO BID venlafaxine 37.5 mg tablet 37.5 mg PO DAILY atorvastatin 20 mg tablet 20 mg PO DAILY hydrochlorothiazide 25 mg tablet 25 mg PO QAM Referrals: Vivien Aguirre ARNP [Primary Care Provider] - Stand Alone Forms: Patient Portal/API/Survey
[2024-07-17] MEDS: SODIUM CHLORIDE 0.9% 1,000 ML 1000 ML IV (23:34)
[2024-07-17] MEDS: diphenhydrAMINE 50 MG/ML VIAL IV (23:35)
[2024-07-17] MEDS: DROPERIDOL 5 MG/2 ML VIAL 2.5 MG IV (23:35)
[2024-07-17] MEDS: METOCLOPRAMIDE 10 MG/2 ML INJ IV (23:35)
[2024-07-17 23:39] LABS: Add Manual Diff / Slide Review NO; Basophils Absolute Auto 100 /uL (0-100); Basophils Percent Auto 1.1 % (0-2); Eosinophils Absolute Auto 0 /uL (0-450); Eosinophils Percent Auto 0.2 % (2-4); Hematocrit 37.6 % (36-46); Hemoglobin 12.8 g/dL (12.0-16.0); Lymphocytes Absolute Auto 600 /uL (1100-4500); Lymphocytes Percent Auto 4.4 % (25-40); Mean Corpuscular Hemoglobin 32.3 PG (26-34); Monocytes Absolute Auto 500 /uL (0-900); Monocytes Percent Auto 4.4 % (3-14); Neutrophils Absolute Auto 11200 /uL (1500-7000); Neutrophils Percent Auto 89.9 % (50-75); Platelet Count 191 X10^3/uL (150-400); Red Blood Cell Count 3.96 X10^6/uL (4.0-5.2); Red Cell Distribution Width 13.2 % (11.6-14.8); White Blood Cell Count 12.5 X10^3/uL (4.5-11.0)
--- NOTE | 2024-07-17 23:39 | PC.NURSE ---
Pt taken to imaging via stretcher with tech
[2024-07-17 23:52] LABS: Alanine Aminotransferase 40 IU/L (<35); Albumin 4.2 g/dL (3.5-5.0); Albumin Globulin Ratio 1.6 (1.0-2.8); Alkaline Phosphatase 77 U/L (38-126); Aspartate Aminotransferase 44 IU/L (14-36); BUN Creatinine Ratio 17.6 (6-22); Bilirubin Total 0.7 mg/dL (0.2-1.3); Blood Urea Nitrogen 13 mg/dL (7-17); Calcium 9.4 mg/dL (8.4-10.2); Carbon Dioxide 24 mmol/L (22-32); Chloride 101 mmol/L (98-107); Estimated Glomerular Filt Rate > 60 mL/min (>60); Globulin 2.7 g/dL (1.7-4.1); Glucose 138 mg/dL (80-110); HEMOLYSIS < 15 (0-50); Lactate (Lactic Acid) 1.5 mmol/L (0.7-2.1); Potassium 3.6 mmol/L (3.4-5.1); Sodium 134 mmol/L (137-145); Total Protein 6.9 g/dL (6.3-8.2)
[2024-07-18] VITALS (7 sets, daily range): BP systolic 110–128; BP diastolic 53–60; PULSE 76–93; RESP 18; TEMP 36.8; O2SAT 94–95
[2024-07-18 00:09] LABS: Procalcitonin 10.2 ng/mL (<0.5)
[2024-07-18 00:24] LABS: Adenovirus Not Detected (Not Detect); B. parapertussis Not Detected (Not Detecte); Bordetella pertussis Not Detected (Not Detect); Chlamydophila pneumoniae Not Detected (Not Detect); Coronavirus 229E Not Detected (Not Detect); Coronavirus HKU1 Not Detected (Not Detect); Coronavirus NL 63 Not Detected (Not Detect); Coronavirus OC43 Not Detected (Not Detect); Human Metapneumovirus Not Detected (Not Detect); Human Rhinovirus/Enterovirus Not Detected (Not Detect); Influenza A Not Detected (Not Detect); Influenza B Not Detected (Not Detect); Mycoplasma pneumoniae Not Detected (Not Detect); Parainfluenza Virus 1 Not Detected (Not Detect); Parainfluenza Virus 2 Not Detected (Not Detect); Parainfluenza Virus 3 Not Detected (Not Detect); Parainfluenza Virus 4 Not Detected (Not Detect); Respiratory Syncytial Virus Not Detected (Not Detect); SARS- CoV-2 Not Detected (Not Detecte)
--- NOTE | 2024-07-18 00:32 | PC.NURSE ---
Pt assisted to restroom via wheel chair
[2024-07-18 00:47] LABS: Erythrocyte Sedimentation Rate 29 MM/HR (0-20)
[2024-07-18] MEDS: KETOROLAC 30 MG/ML VIAL 15 MG IV (00:58)
--- NOTE | 2024-07-18 01:12 | PC.NURSE ---
Pt ambulatory to restroom without difficulty or assistance with one person standby.
[2024-07-18] MEDS: BUTALB/APAP/CAFFEINE 50/325/40 TABLET 1 EACH PO (02:31)
== END 2024-07-18 02:34 | disposition home or self-care (01) ==
PROVIDERS: Emergency Provider Emergency Medicine; PCP Nurse Practitioner
DX: R51.9 Headache, unspecified (principal); Z11.52 Encounter for screening for COVID-19
CPT/HCPCS: 36415; 70450; 80053; 83605; 84145; 85025; 85651; 86140; 87633; 96361; 96374; 96375; 99284; J1200; J1790; J1885; J2765

== ENCOUNTER → 2024-08-27 14:51 | Outpatient (CLI) | payer OTHER, MEDICARE, SELFPAY ==
[2023-08-10 19:01] VITALS: BMI 29.0
--- NOTE | 2024-08-27 14:55 | DI.MG.S_ITS ---
BILATERAL DIGITAL SCREENING MAMMOGRAM 3D/2D WITH CAD: 08/27/2024 CLINICAL: Routine screening. Comparison is made to exams dated: 09/26/2022 mammogram - [facility], 09/11/2021 mammogram, and 12/04/2016 mammogram - [facility]. The breasts are heterogeneously dense, which may obscure small masses (category c / 51-75% glandular tissue). Current study was also evaluated with a Computer Aided Detection (CAD) system. No significant masses, calcifications, or other findings are seen in either breast. There has been no significant interval change. IMPRESSION: NEGATIVE There is no mammographic evidence of malignancy. A 1 year screening mammogram is recommended. Based on the Tyrer Cuzick model (a risk assessment model) the patient's lifetime risk is 5.4% and her 10 year risk is 3.7%. According to the ACR, ACS, and NCCN guidelines, an annual breast MRI exam along with mammogram is recommended if the patient's lifetime risk is 20% or greater. This exam was interpreted at Station ID: [id number]. NOTE: For mammograms, a report in lay terms will be sent to the patient. Approximately 15% of breast malignancies will not be visualized mammographically. In the management of a palpable breast mass, a negative mammogram must not discourage biopsy of a clinically suspicious lesion. Electronically Signed By: Connie Barbosa M.D., Ph.D. alex/swathi:08/31/2024 05:13:42 letter sent: Normal Exam ACR BI-RADS Category 1: Negative
--- NOTE | 2024-08-27 14:56 | DI.RAD.S_ITS ---
PROCEDURE: XR DEXA AXIAL SKELETON INDICATIONS: ROUTINE SCREEN COMPARISON: None. FINDINGS: Right 100 Lumbar Spine: L1 excluded. Bone mineral density 1.174 g/cm2, T score 0.9, normal. Left Hip: Bone mineral density 0.961 g/cm2, T score 0.2, normal. Left Femoral Neck: Bone mineral density 0.825 g/cm2, T score -0.2, normal. Right Hip: Bone mineral density 0.9 x 3 g/cm2, T score 0.1, normal. Right Femoral Neck: Bone mineral density 0.849 g/cm2, T score 0, normal. Fracture Risk Calculation (when applicable): Not applicable (T score greater or equal to -1.0 to: NORMAL) (T score from -1.1 to -2.4: OSTEOPENIA) (T score less than or equal to -2.5: OSTEOPOROSIS) IMPRESSION: Normal bone mineral density. Follow-up guidelines as follows: Osteoporosis: Consider a repeat DEXA and Vertebral Fracture Assessment (VFA) exam in 2 years or sooner if medically necessary, to reassess this patient's status. Osteopenia: Consider a repeat DEXA in 2-3 years to reassess this patient's status, or if there is a new clinical indication. Normal: Consider a repeat DEXA in 5 years or sooner, or if there is a new clinical indication. All treatment decisions require clinical judgment and consideration of individual patient factors, including patient preferences, comorbidities, previous drug use, risk factors not captured in the FRAX model (e.g., frailty, falls, vitamin D deficiency, increased bone turnover, interval significant decline in bone density ) and possible under- or over-estimation of fracture risk by FRAX. In addition, the NOF Guide recommends that FDA-approved medical therapies be considered in postmenopausal women and men age >= 50 years with a: * Hip or vertebral (clinical or morphometric) fracture * T-score of <=-2.5 at the spine or hip * Ten-year fracture probability by FRAX of >= 3% for hip fracture or >=20% for major osteoporotic fracture. People with diagnosed cases of osteoporosis or at high risk for fracture should have regular bone mineral density tests. For patients eligible for Medicare, routine testing is allowed once every 2 years. The testing frequency can be increased to one year for patients who have rapidly progressing disease, those who are receiving or discontinuing medical therapy to restore bone mass, or have additional risk factors. Dictated by: Addi Reeder M.D. on 08/27/2024 at 18:00 Approved by: Addi Reeder M.D. on 08/27/2024 at 18:11
== END ==
PROVIDERS: PCP Nurse Practitioner; Referring Provider Nurse Practitioner; Visit Provider Nurse Practitioner
DX: Z12.31 Encounter for screening mammogram for malignant neoplasm of breast (principal); R92.333 Mammographic heterogeneous density, bilateral breasts; Z78.0 Asymptomatic menopausal state
CPT/HCPCS: 77063; 77067; 77080